=== PATIENT | female | born 1945 | race Caucasian/White ===

== ENCOUNTER 2019-05-18 09:20 | Outpatient (CLI) | payer MEDICARE, SELFPAY ==
[2019-05-18 10:07] LABS: Alanine Aminotransferase 25 U/L (4-35); Albumin Level 4.1 g/dL (3.5-5.1); Alkaline Phosphatase 81 U/L (38-126); Aspartate Amino Transferase 32 U/L (14-36); Bilirubin,Total 0.4 mg/dL (0.2-1.3); Blood Urea Nitrogen 11 mg/dL (7-17); Calcium 9.3 mg/dL (8.4-10.2); Carbon Dioxide 23 mmol/L (22-30); Chloride 103 mmol/L (98-107); Cholesterol 144 mg/dL (0-200); Estimated Glomerular Filt Rate > 60; Glucose 86 mg/dL (65-105); HDL Direct 47 mg/dL; Potassium 4.4 mmol/L (3.4-5.0); Sodium 139 mmol/L (137-145); Triglycerides 135 mg/dL (<150)
[2019-05-18 10:18] LABS: LDL Cholesterol Direct 70 mg/dL
[2019-05-18 10:21] LABS: Hemoglobin A1C 6.1 % (<5.7)
[2019-05-18 10:49] LABS: Vitamin D 25 Hydroxy 18.7 ng/mL
[2019-05-18 10:57] LABS: Vitamin B12 > 1000.0 pg/mL (239-931)
== END 2019-05-18 09:21 | disposition home or self-care (01) ==
LOC: ANHLAB 09:23
PROVIDERS: PCP Family Medicine; Visit Provider Nurse Practitioner
DX: E78.5 Hyperlipidemia, unspecified (principal); R73.9 Hyperglycemia, unspecified; E55.9 Vitamin D deficiency, unspecified; E53.8 Deficiency of other specified B group vitamins
CPT/HCPCS: 36415; 80053; 80061; 82306; 82607; 83036

== ENCOUNTER 2019-09-26 07:37 | Outpatient (CLI) | payer MEDICARE, SELFPAY ==
--- NOTE | ~2019-09-26 | CT_ITS ---
EXAMINATION: CT abdomen pelvis w con EXAM DATE: 09/26/2019 08:32 INDICATION: Pancreatic head cancer. TECHNIQUE: Spiral CT of the abdomen and pelvis was performed following intravenous injection of 100 m L Omnipaque 350. Axial, coronal and sagittal images were reviewed. The dose-length product (DLP) fo r this examination was 285.00 mGy-cm. The exposure was tailored according to patient size (auto mA e xposure control), and iterative reconstruction (ASIR) was used as additional dose reduction technique . Comparison is made to prior examination from 04/05/2019. FINDINGS: There is anechoic left liver lobe lesion, cyst measuring 1.6 cm unchanged. Surgical changes at the pancreatic head, Whipple procedure are stable compared to prior study, no evidence of local r ecurrence. The spleen and right adrenal gland are unremarkable. Mild nodularity to the left adrenal g land unchanged. Gallbladder is unremarkable. No biliary obstruction. Portal and splenic veins are p atent. Kidneys enhance symmetrically. There is no hydronephrosis. The uterus is anteverted and mo rphologically normal. The bladder is unremarkable. There is no retroperitoneal or pelvic lymphaden opathy. There is mild to moderate scattered arteriosclerotic disease. There is small supraumbilical midline fat-containing hernias. The appendix is not positively visualized. There is no pericecal inflammatory change to suggest appe ndicitis. The stomach and small bowel are unremarkable. There is expected amount of colonic stool. Mild No free intraperitoneal gas. The heart is normal in size. There are no pericardial or pleura l effusions. The lung bases are unremarkable. There are no osteoblastic or osteolytic lesions ident ified. IMPRESSION: Stable exam. No evidence of metastatic disease. Reviewed, dictated and finalized at location B.
[2019-09-26 08:17] LABS: Estimated Glomerular Filt Rate > 60
== END 2019-09-26 07:38 | disposition home or self-care (01) ==
PROVIDERS: PCP Family Medicine; Visit Provider Internal Medicine Medical Oncology
DX: C25.0 Malignant neoplasm of head of pancreas (principal)
CPT/HCPCS: 36415; 74177; Q9967

== ENCOUNTER → 2020-05-19 12:20 | Outpatient (CLI) | payer MEDICARE, SELFPAY ==
--- NOTE | ~2020-05-19 | DEXA_ITS ---
Bone Density Report Name: Dalia Mclean Age: 74 Sex: Female Ethnicity: White Date of : 1945 Indication: postmenopausal; screening for osteoporosis; height loss; Referring Provider: TRDUY QUIÑONES Study: Bone densitometry was performed. Exam Date: May 19, 2020 Accession number: [id number] Bone Density: Region BMD T-score Z-score Classification AP Spine (L1-L4) 0.948 -0.9 1.4 Normal Femoral Neck (Left) 0.634 -1.9 0.1 Osteopenia Total Hip (Left) 0.796 -1.2 0.5 Osteopenia Femoral Neck (Right) 0.630 -2.0 0.0 Osteopenia Total Hip (Right) 0.750 -1.6 0.1 Osteopenia Total Hip Mean 0.773 -1.4 0.3 Osteopenia World Health Organization criteria for BMD impression classify patients as: Normal (T-score at or above -1.0), Osteopenia (T-score between -1.0 and -2.5), or Osteoporosis (T-score at or below -2.5). 10-year Fracture Risk: FRAX not reported because: Treated for osteoporosis Clinical Information Provided by Patient: Is being treated for osteoporosis Has used the following medications: Evista (i.e. raloxifene), Vitamin D, Calcium Patient maximum height was 62 Menopause Age: 49 No regular weight bearing exercise Drinks caffeinated beverages Onset of menses at age 12 Number of children 2 Impression: The patient has low bone mass, based on the Right Femoral Neck T-score. Discussion: It is important to ask patients whether they are taking their medications and to encourage continued and appropriate compliance with their osteoporosis therapies to reduce fracture risk. It is also important to review their risk factors and encourage appropriate calcium and vitamin D intakes, exercise, fall prevention and other lifestyle measures. Follow-Up: Consider a repeat BMD and Vertebral Fracture Assessment (VFA) exam in 2 years or sooner if medically necessary, to reassess this patient's status. Reported by: AYAD on 05/19/2020 12:49:00 PM. Reviewed, dictated and finalized at location AQuique JENKINS
== END ==
PROVIDERS: PCP Internal Medicine; Visit Provider Obstetrics & Gynecology Gynecology
DX: Z78.0 Asymptomatic menopausal state (principal); M85.88 Other specified disorders of bone density and structure, other site; M85.852 Other specified disorders of bone density and structure, left thigh; M85.851 Other specified disorders of bone density and structure, right thigh
CPT/HCPCS: 77080

== ENCOUNTER 2020-05-19 13:03 | Outpatient (CLI) | payer MEDICARE, SELFPAY ==
[2020-05-19 14:49] LABS: Vitamin D 25 Hydroxy 19.1 ng/mL
== END 2020-05-19 13:04 | disposition home or self-care (01) ==
PROVIDERS: PCP Internal Medicine; Visit Provider Obstetrics & Gynecology Gynecology
DX: E55.9 Vitamin D deficiency, unspecified (principal)
CPT/HCPCS: 36415; 82306

== ENCOUNTER 2020-05-22 08:16 | Outpatient (CLI) | payer MEDICARE, SELFPAY ==
--- NOTE | ~2020-05-22 | CT_ITS ---
EXAMINATION: CT abdomen pelvis w con DATE: 05/22/2020 09:13 INDICATION: Restaging of malignant neoplasm of pancreatic head TECHNIQUE: Computed tomography (CT) of the abdomen and pelvis was performed with 100 cc Omnipaque 350 intravenous contrast. Automated exposure control and iterative reconstruction technique were employe d. Exam dose: 318.87 mGy-cm total exam DLP. COMPARISON: 09/26/2019 CT abdomen pelvis FINDINGS: Right fat-containing foramen of Bochdalek hernia with adjacent right basilar lower lobe ate lectasis. The lung bases are otherwise clear. Normal heart size. No pericardial or pleural effusion. Stable approximately 1.6 cm hepatic cyst. Diffuse hepatic steatosis. Status post cholecystectomy. Status post pancreatic head resection (Whipple procedure) for history of pancreatic carcinoma. Normal splenic size. No recurrent or new pancreatic mass lesion is evident. There is pancreatic atrop hy. Unremarkable adrenal glands. Very small right renal cyst. Stable focal scarring at the upper pole of the left kidney laterally. Th e kidneys are otherwise unremarkable. No urinary tract calculus or hydroureteronephrosis. The urinary bladder is unremarkable. There is atherosclerotic calcification of the abdominal aorta and proximal renal arteries. No abdomin al aortic aneurysm. No intraperitoneal or retroperitoneal or pelvic mass lesion or adenopathy or asci alfa is evident. Diverticulosis of the left colon; no CT evidence of diverticulitis. There are some fluid levels in th e right colon. No bowel obstruction, bowel wall thickening, pneumatosis or intraperitoneal free air i s evident. At least 2 ventral fat-containing abdominal wall hernias are noted, the largest measuring up to appro ximately 3.2 cm maximal transverse dimension and 10 mm maximal depth. Very small fat-containing umbilical hernia. No suspicious osteolytic or osteoblastic lesions are noted. IMPRESSION: Status post Whipple procedure for pancreatic carcinoma; no recurrent neoplasm is evident . Stable 1.6 cm hepatic cyst Hepatic steatosis Very small right renal cyst Diverticulosis of the colon Reviewed, dictated and finalized at Location A. Reviewed, dictated and finalized at location B. NEL INSTALLER IMPRESSION: Status post Whipple procedure for pancreatic carcinoma; no recurre nt neoplasm is evident. Stable 1.6 cm hepatic cyst Hepatic steatosis Very small right renal cyst Diverticulosis of the colon
[2020-05-22 09:09] LABS: Estimated Glomerular Filt Rate > 60
== END 2020-05-22 08:17 | disposition home or self-care (01) ==
PROVIDERS: PCP Internal Medicine; Visit Provider Internal Medicine Medical Oncology
DX: C25.0 Malignant neoplasm of head of pancreas (principal); N28.1 Cyst of kidney, acquired; K76.9 Liver disease, unspecified
CPT/HCPCS: 74177; Q9967

== ENCOUNTER 2020-06-17 09:40 | Outpatient (CLI) | payer MEDICARE, SELFPAY ==
[2020-06-17 10:17] LABS: Alanine Aminotransferase 25 U/L (4-35); Albumin Level 3.9 g/dL (3.5-5.1); Alkaline Phosphatase 69 U/L (38-126); Anion Gap 4 mmol/L (8-16); Aspartate Amino Transferase 37 U/L (14-36); Bilirubin,Total 0.4 mg/dL (0.2-1.3); Blood Urea Nitrogen 13 mg/dL (7-17); Calcium 8.9 mg/dL (8.4-10.2); Carbon Dioxide 26 mmol/L (22-30); Chloride 108 mmol/L (98-107); Cholesterol 166 mg/dL (0-200); Estimated Glomerular Filt Rate > 60; Glucose 96 mg/dL (65-105); HDL Direct 52 mg/dL; Potassium 4.2 mmol/L (3.4-5.0); Sodium 138 mmol/L (137-145); Triglycerides 118 mg/dL (<150)
[2020-06-17 10:24] LABS: Hemoglobin A1C 5.6 % (<5.7)
[2020-06-17 10:27] LABS: LDL Cholesterol Direct 89 mg/dL
== END 2020-06-17 09:41 | disposition home or self-care (01) ==
PROVIDERS: PCP Internal Medicine; Visit Provider Internal Medicine
DX: R73.03 Prediabetes (principal); I10 Essential (primary) hypertension; E78.5 Hyperlipidemia, unspecified; E04.2 Nontoxic multinodular goiter
CPT/HCPCS: 36415; 80053; 80061; 83036; 84443

== ENCOUNTER 2020-06-30 13:04 | Emergency (ER) | payer MEDICARE, SELFPAY ==
--- NOTE | 2020-06-30 13:06 | ED.GENADULT ---
HPI - General Adult General Chief complaint: Upper Respiratory Infection Stated complaint: cough/fever/fatigue/light headed Time Seen by Provider: 06/30/20 13:06 Source: patient Mode of arrival: ambulatory Limitations: no limitations History of Present Illness HPI narrative: 74-year-old female patient presents to the [facility] with complaints of cold symptoms for the past 5 days. Patient states she has had fevers as high as 102 but has not ran a fever for the last 2 days. Patient states she has had a little bit of a cough but denies any chest pain or shortness of breath. Patient states she has had a runny nose, fatigue, congestion. Patient states she did get her first Covid vaccine shot about 3 weeks ago. Patient denies being around anybody with Covid that she is aware of. Related Data Home Medications Medication Instructions Recorded Confirmed raloxifene mg 06/30/20 Allergies Allergy/AdvReac Type Severity Reaction Status Date / Time pegfilgrastim Allergy Mild WELTS Verified 06/23/20 09:17 vancomycin Allergy Mild Hives Verified 06/23/20 09:17 Review of Systems Review of Systems: Narrative: CONSTITUTIONAL: Positive fever, denies chills, or sweats. Positive fatigue EYES: Denies visual changes, redness, or discharge. ENT: Positive rhinorrhea, congestion, denies sore throat, or otalgia. CARDIOVASCULAR: Denies chest pain, palpitations, or edema. RESPIRATORY: Denies cough or dyspnea. GASTROINTESTINAL: Denies abdominal pain, nausea, vomiting, or diarrhea. GENITOURINARY: Denies dysuria or hematuria. SKIN: Denies rash or itching. MUSCULOSKELETAL: Denies back pain, joint pain, or myalgia. NEUROLOGIC: Denies headache, numbness, or weakness. PSYCHIATRIC: Denies anxiety or depression. [facility] Past Medical History Medical History Arthritis Combined hyperlipidemia Cyst of eye Essential (primary) hypertension History of breast cancer History of pancreatic cancer Multinodular goiter Raynaud's phenomenon without gangrene Vitamin D deficiency Surgical History Surgical History H/O cataract removal with insertion of prosthetic lens 2012 H/O section 1971 & 1975 History of dilatation and curettage 1974, 1977, 1979 Hx of blepharoplasty 2015 Hx of cholecystectomy 1998 Hx of hernia repair 2017 Hx of rotator cuff surgery 2003 Hx of tonsillectomy 1964 S/P thyroid biopsy 2017 [place] teeth removed 1972 Family History Family History Father Family history of lung cancer Mother Family history of malignant neoplasm of skin Sibling Family history of malignant neoplasm of skin Carcinoma of colon Family history of lymphoma Grandparent Family history of malignant neoplasm of breast Other Acute myocardial infarction Family history of malignant neoplasm of male breast Hypertension Social History Social History Smoking status: Former smoker Smoking end date: 04/03/1967 Alcohol intake: never Comments At the time of my signature I agree with nursing past medical history, surgical, social, and family history. There is no relevant family history pertinent to the presenting complaint. Exam Narrative: Exam Narrative: GENERAL: Well-appearing, well-nourished, and in no acute distress. HEAD: Normocephalic, atraumatic. EYES: PERRLA and EOMI. ENT: Nares clear, no rhinorrhea or epistaxis. Mucous membranes moist. Posterior pharynx with no erythema, tonsillar French, exudates or lesions present. Bilateral TMs are clear with no erythema or foreign bodies to the canal. NECK: Supple. No lymphadenopathy CHEST: Clear to auscultation. No respiratory distress. Patient able talk in clear complete sentences. HEART: Regular rate and rhythm. No murmur heard. Normal peripheral pulses. ABDOMEN:
[2020-06-30 13:13] VITALS: BP 165/70; PULSE 87; RESP 16; TEMP 37.2; O2SAT 99
== END 2020-06-30 13:31 | disposition home or self-care (01) ==
PROVIDERS: Emergency Provider Nurse Practitioner Family; PCP Internal Medicine
DX: U07.1 COVID-19 (principal); Z87.891 Personal history of nicotine dependence; M19.90 Unspecified osteoarthritis, unspecified site; I10 Essential (primary) hypertension; Z85.3 Personal history of malignant neoplasm of breast; Z85.07 Personal history of malignant neoplasm of pancreas; I73.00 Raynaud's syndrome without gangrene
CPT/HCPCS: 87426; 99213; C9803; G0463

== ENCOUNTER 2020-07-09 14:59 | Outpatient (CLI) | payer MEDICARE, SELFPAY ==
--- NOTE | ~2020-07-09 | US_ITS ---
EXAMINATION: US pelvic complete w TV DATE: 07/09/2020 16:04 INDICATION: Pelvic and perineal pain TECHNIQUE: Multiple transabdominal and endovaginal sonographic images of the pelvis were obtained. COMPARISON: CT, 05/22/2020 FINDINGS: The uterus measures 4.0 x 2.2 x 2.3 cm. There is a 1.3 cm cystic area in the posterior uter ine body to the left of midline. The endometrial complex measures 4 mm. The ovaries are not visualize d however no adnexal abnormality is seen. There is no free fluid in the pelvis. IMPRESSION: 1. No sonographic correlate for the patient's symptoms. Cystic area of the posterior uterine body of unclear etiology. Reviewed, dictated and finalized at location A. IMPRESSION: 1. No sonographic correlate for the patient's symptoms. Cystic area of the post erior uterine body of unclear etiology.
--- NOTE | ~2020-07-09 | US_ITS ---
EXAMINATION: US thyroid DATE: 07/09/2020 16:04 INDICATION: Nontoxic multinodular goiter. TECHNIQUE: Multiple ultrasound images of the thyroid were obtained. COMPARISON: Ultrasound 12/26/2016, 01/19/2016 FINDINGS: The right thyroid lobe measures 4.0 x 1.6 x 1.2 cm. The left thyroid lobe measures 5.0 x 2.3 x 2.6 c m. In the right thyroid lobe, there is a 1.5 cm solid, hypoechoic, [id number] nodule with ill-d efined margin without echogenic foci (TI-RADS TR4). In the left thyroid lobe, there is a 2.7 cm solid , hypoechoic, gdxmr-dtdf-kpgy nodule with ill-defined margin without echogenic foci (TR4). IMPRESSION: 1. Thyroid nodules, stable from 01/19/2016, likely benign. Reviewed, dictated and finalized at location A.
== END 2020-07-09 15:00 | disposition home or self-care (01) ==
LOC: ANHIMG 15:07
PROVIDERS: PCP Internal Medicine; Visit Provider Nurse Practitioner
DX: R10.2 Pelvic and perineal pain (principal); E04.2 Nontoxic multinodular goiter
CPT/HCPCS: 76536; 76830; 76856

== ENCOUNTER 2020-10-13 07:28 | Outpatient (CLI) | payer MEDICARE, SELFPAY ==
--- NOTE | ~2020-10-13 | CT_ITS ---
EXAMINATION: CT pelvis wo/w con DATE: 10/13/2020 08:07 INDICATION: Pelvic pain. Uterine cyst. TECHNIQUE: Computed tomography (CT) of the pelvis was performed without and with 100 mL Omnipaque 350 intravenous contrast. Automated exposure control and iterative reconstruction technique were employe d. The dose-length product was 377.91 mGy-cm. COMPARISON: Pelvis ultrasound 07/09/2020, CT 05/22/2020, 09/26/19 FINDINGS: There is diverticulosis of the colon without evidence of diverticulitis. There are no dilat ed loops of bowel. There are no pathologically enlarged lymph nodes. There is no free intraperitoneal fluid. There is a 12 mm cyst in the left uterine fundus centered at the endometrial complex. No tammy d component. There is mild lumbar spondylosis. IMPRESSION: 1. 12 mm cyst in the left uterine fundus centered at the endometrial complex, stable from 09/26/2019, likely benign. Reviewed, dictated and finalized at location A. IMPRESSION: 1. 12 mm cyst in the left uterine fundus centered at the endometrial complex, s table from 09/26/2019, likely benign.
[2020-10-13 08:02] LABS: Estimated Glomerular Filt Rate > 60
== END 2020-10-13 07:29 | disposition home or self-care (01) ==
LOC: ANHIMG 07:29
PROVIDERS: PCP Internal Medicine; Visit Provider Obstetrics & Gynecology Gynecology
DX: R93.5 Abnormal findings on diagnostic imaging of other abdominal regions, including retroperitoneum (principal)
CPT/HCPCS: 72194; Q9967

== ENCOUNTER 2020-11-30 01:49 | Day surgery (SDC) | payer MEDICARE, SELFPAY ==
[2020-11-23 16:07] VITALS: BMI 23.6
--- NOTE | 2020-11-30 07:13 | WPDHPUPDATE1 ---
History and Physical Update Update Date/Time: 11/30/20 07:13 History and Physical has been reviewed, including an updated exam of the patient. There are NO changes in the patient's condition. Risks, benefits, and alternatives have been discussed and questions answered. Patient agrees to proceed with procedure.
--- NOTE | 2020-11-30 07:13 | PM.HPGS ---
History of Present Illness History of Present Illness Consent: Risks, benefits, and alternatives have been discussed and questions answered. Patient agrees to proceed with procedure. Chief complaint: abn pelvic ultrasound Narrative: Dalia Mclean is a 75 year old female with pelvic ultrasound and CT showing a 12mm cyst in the endometrial cavity. The patient has had no vaginal bleeding and only complains of low abdominal mild pressure and pain. It was recommended to further evaluate with hysteroscopy D& C. Risks of infection, bleeding, and perforation were reviewed. Possible pathology was discussed. Patient voices understanding and agrees to proceed. Review of Systems Gastrointestinal: Gastrointestinal: Reports abdominal pain (Low pelvic) and Reports diarrhea Psychiatric: Psychiatric: Reports anxiety PMFSH Past Medical History Medical History (Updated 11/30/20 @ 07:20 by Arianne Musa MD) Arthritis Ashkenazi Orthodoxy ancestry Combined hyperlipidemia Cyst of eye Essential (primary) hypertension History of breast cancer History of pancreatic cancer Multinodular goiter Raynaud's phenomenon without gangrene Vitamin D deficiency Surgical History Surgical History H/O cataract removal with insertion of prosthetic lens 2012 H/O section 1971 & 1975 History of dilatation and curettage 1973, 1976, 1978 Hx of blepharoplasty 2015 Hx of cholecystectomy 1997 Hx of hernia repair 2017 Hx of rotator cuff surgery 2003 Hx of tonsillectomy 1964 S/P thyroid biopsy 2017 [place] teeth removed 1972 Family History Family History Father Family history of lung cancer Mother Family history of malignant neoplasm of skin Sibling Family history of malignant neoplasm of skin Carcinoma of colon Family history of lymphoma Grandparent Family history of malignant neoplasm of breast Other Acute myocardial infarction Family history of malignant neoplasm of male breast Hypertension Social History Social History (Updated 11/09/20 @ 07:49 by Lorrie Nugent CNA) Smoking status: Never smoker Second hand tobacco smoke exposure: Yes Alcohol intake: never Substance use: never Living arrangements: with family Spiritual care concerns: No Meds Home Medications and Allergies Home Medications Medication Instructions Recorded Confirmed Type L.acidoph, paracasei,B. lactis 10 10 cell PO DAILY 11/09/20 11/23/20 History billion cell capsule acyclovir 400 mg tablet 400 mg PO DAILY PRN 11/09/20 11/23/20 History calcium carbonate 400 mg calcium 400 mg PO DAILY 11/09/20 11/23/20 History (1,000 mg) chewable tablet cholecalciferol (vitamin D3) 250 20,000 unit PO DAILY cap 11/09/20 11/23/20 History mcg (10,000 unit) capsule diphenhydramine HCl 25 mg tablet 25 mg PO QHS 11/09/20 11/23/20 History wcnycq-aymlolof-butggyf 1 cap PO BID PRN 11/09/20 11/23/20 History 24,000-76,000-120,000 unit capsule,delayed rel melatonin 5 mg tablet 5 mg PO QHS 11/09/20 11/23/20 History multivitamin 1 tablet PO DAILY 11/09/20 11/23/20 History raloxifene 60 mg tablet 60 mg PO DAILY tablet 11/09/20 11/23/20 History trazodone 50 mg tablet 25 mg PO DAILY PRN tablet 11/09/20 11/23/20 History aspirin [Adult Low Dose Aspirin] 81 mg PO DAILY 11/23/20 11/23/20 History Allergies Allergy/AdvReac Type Severity Reaction Status Date / Time pegfilgrastim Allergy Mild WELTS Verified 11/23/20 15:24 vancomycin Allergy Mild Hives Verified 11/23/20 15:24 Exam Const: General: comfortable and no acute distress : External Female Exam: normal external appearance and externally tender Speculum Exam - Vagina: normal appearance of the vagina Speculum Exam - Cervix: normal appearance of the cervix Bimanual exam- vagina & uterus: normal bimanual exam Bimanual Exam- Adnexa, other: normal adnex
[2020-11-30] MEDS: ACETAMINOPHEN 500 MG TABLET 1000 MG PO (07:16)
[2020-11-30 07:31] VITALS: BP 157/69; PULSE 82; RESP 16; TEMP 36.6; O2SAT 99
--- NOTE | 2020-11-30 07:47 | WPDANESEPPF ---
Anes - Initial Pre Proc Eval Procedure: Operation Date: 11/30/20 08:45 Proposed Procedures p Hysteroscopy, Dilation and Curettage - Arianne Musa MD Date/Time: 11/30/20 07:47 Surgeon: Arianne Musa MD Pre Op Diagnosis: abn pelvic ultrasound Patient Data Age: 75 Gender: F Height: 1.55 m Weight: 57 kg Last Vital Signs Temp 36.6 C 11/30/20 07:31 Pulse 82 11/30/20 07:31 Resp 16 11/30/20 07:31 BP 157/69 H 11/30/20 07:31 Pulse Ox 99 11/30/20 07:31 Allergies Allergy/AdvReac Type Severity Reaction Status Date / Time pegfilgrastim Allergy Mild WELTS Verified 11/30/20 07:29 vancomycin Allergy Mild Hives Verified 11/30/20 07:29 Home Medications Medication Instructions Recorded Confirmed Type L.acidoph, paracasei,B. lactis 10 10 cell PO DAILY 11/09/20 11/23/20 History billion cell capsule acyclovir 400 mg tablet 400 mg PO DAILY PRN 11/09/20 11/23/20 History calcium carbonate 400 mg calcium 400 mg PO DAILY 11/09/20 11/23/20 History (1,000 mg) chewable tablet cholecalciferol (vitamin D3) 250 20,000 unit PO DAILY cap 11/09/20 11/23/20 History mcg (10,000 unit) capsule diphenhydramine HCl 25 mg tablet 25 mg PO QHS 11/09/20 11/23/20 History vbdnaa-edccvvft-mgmfctq 1 cap PO BID PRN 11/09/20 11/23/20 History 24,000-76,000-120,000 unit capsule,delayed rel melatonin 5 mg tablet 5 mg PO QHS 11/09/20 11/23/20 History multivitamin 1 tablet PO DAILY 11/09/20 11/23/20 History raloxifene 60 mg tablet 60 mg PO DAILY tablet 11/09/20 11/23/20 History trazodone 50 mg tablet 25 mg PO DAILY PRN tablet 11/09/20 11/23/20 History aspirin [Adult Low Dose Aspirin] 81 mg PO DAILY 11/23/20 11/30/20 History Patient hx anesthesia problems: none Family hx anesthesia problems: other (daughter temp blindness) PMFSH Past Medical History Medical History Arthritis Ashkenazi Zoroastrian ancestry Combined hyperlipidemia Cyst of eye Essential (primary) hypertension History of breast cancer History of pancreatic cancer Multinodular goiter Raynaud's phenomenon without gangrene Vitamin D deficiency Surgical History Surgical History H/O cataract removal with insertion of prosthetic lens 2012 H/O section 1971 & 1975 History of dilatation and curettage 1973, 1976, 1978 Hx of blepharoplasty 2014 Hx of cholecystectomy 1997 Hx of hernia repair 2016 Hx of rotator cuff surgery 2002 Hx of tonsillectomy 1963 S/P thyroid biopsy 2017 [place] teeth removed 1971 Family History Family History Father Family history of lung cancer Mother Family history of malignant neoplasm of skin Sibling Family history of malignant neoplasm of skin Carcinoma of colon Family history of lymphoma Grandparent Family history of malignant neoplasm of breast Other Acute myocardial infarction Family history of malignant neoplasm of male breast Hypertension Social History Social History Smoking status: Never smoker Second hand tobacco smoke exposure: Yes Alcohol intake: never Substance use: never Living arrangements: with family Spiritual care concerns: No Anes - Eval Final PreProcedure Day of Procedure 11/30/20 07:47 Patient weight: normal Heart: regular rate and rhythm Lungs: clear to auscultation Airway: Mallampati scale class 1 Neurological: alert and oriented Last oral intake: >/= 8 hours ASA classification: III Emergent: no Anesthetic plan: proceed Anesthesia type and monitoring: general GIVS and standard monitoring Informed Consent: The patient's anesthetic plan and its attendant risks and benefits were discussed with the patient/family/POA. Questions were solicited and answers provided to the satisfaction of the patient/family/POA.
--- NOTE | 2020-11-30 08:21 | P.OP_ITS ---
Procedure Note - Detailed Date of Procedure 11/30/20 Pre-op Diagnosis abn pelvic ultrasound Post-op Diagnosis same Procedure Performed Hysteroscopy Surgeon Arianne Musa MD Anesthesia MAC and local Findings Cervix is stenotic; uterus is very scarred with no lesions visible; perforation left upper fundus Description of Procedure The patient was taken to the operating room and placed in the dorsal lithotomy position using Anival stirrups. She was prepped and draped in usual sterile fashion. [place] speculum was placed in the vagina and the cervix grasped on the anterior lip with a tenaculum. The cervix is injected with 1% lidocaine in each quadrant. The uterus is sounded and the os is slightly stenotic and during entry perforation is noted. The cervix was then serially dilated with Hegar size. Diagnostic hysteroscope was placed and the uterus distends well with good visualization of the entire cavity. No lesions are noted. There was a small perforation in the left upper fundus. No bleeding is coming from the perforation site. No specimen is taken due to this perforation. All instruments are removed. The patient is awakened from anesthesia and taken to recovery in stable condition. Sponge, needle, and instrument counts are correct per the OR staff. Estimated Blood Loss 5 Drains No Packing No Pathology none sent Complications Other complications (Uterine perforation) Condition stable Disposition PACU
[2020-11-30 08:22] VITALS: BP 131/58; PULSE 81; RESP 15; O2SAT 97
[2020-11-30] MEDS: LACTATED RINGERS 1,000 ML 30 ML IV CONT (08:22)
[2020-11-30 08:50] VITALS: BP 113/63; PULSE 84; RESP 20
[2020-11-30 09:15] VITALS: BP 167/71; PULSE 74; RESP 20
== END 2020-11-30 09:20 | disposition home or self-care (01) ==
PROVIDERS: PCP Internal Medicine; Visit Provider Obstetrics & Gynecology Gynecology
PROC: 0U5B8ZZ Destruction of Endometrium, Via Natural or Artificial Opening Endoscopic (ICD-10-PCS; CPT 58563; principal; 2020-11-30 08:45)
DX: N88.2 Stricture and stenosis of cervix uteri (principal); N99.71 Accidental puncture and laceration of a genitourinary system organ or structure during a genitourinary system procedure; Y65.8 Other specified misadventures during surgical and medical care; M19.90 Unspecified osteoarthritis, unspecified site; E78.5 Hyperlipidemia, unspecified; Z85.3 Personal history of malignant neoplasm of breast; Z85.07 Personal history of malignant neoplasm of pancreas; E55.9 Vitamin D deficiency, unspecified; E04.2 Nontoxic multinodular goiter; R11.2 Nausea with vomiting, unspecified
CPT/HCPCS: 58555; A9270; J2704; J3010; J7030; J7120

== ENCOUNTER 2020-12-30 08:22 | Outpatient (CLI) | payer MEDICARE, SELFPAY ==
[2020-12-30 09:02] LABS: Alanine Aminotransferase 21 U/L (4-35); Albumin Level 4.3 g/dL (3.5-5.1); Alkaline Phosphatase 75 U/L (38-126); Anion Gap 10 mmol/L (8-16); Aspartate Amino Transferase 35 U/L (14-36); Bilirubin,Total 0.4 mg/dL (0.2-1.3); Blood Urea Nitrogen 13 mg/dL (7-17); Calcium 9.1 mg/dL (8.4-10.2); Carbon Dioxide 22 mmol/L (22-30); Chloride 107 mmol/L (98-107); Cholesterol 151 mg/dL (0-200); Estimated Glomerular Filt Rate > 60; Glucose 100 mg/dL (65-110); HDL Direct 60 mg/dL; Potassium 4.4 mmol/L (3.4-5.0); Sodium 139 mmol/L (137-145); Triglycerides 179 mg/dL (<150)
[2020-12-30 09:15] LABS: LDL Cholesterol Direct 65 mg/dL
[2020-12-30 09:55] LABS: Vitamin D 25 Hydroxy 49.9 ng/mL
== END 2020-12-30 08:23 | disposition home or self-care (01) ==
PROVIDERS: PCP Internal Medicine; Visit Provider Nurse Practitioner
DX: E78.2 Mixed hyperlipidemia (principal); E53.8 Deficiency of other specified B group vitamins; E55.9 Vitamin D deficiency, unspecified; G47.00 Insomnia, unspecified
CPT/HCPCS: 36415; 80053; 80061; 82306; 82607; 84443

== ENCOUNTER 2021-06-02 08:16 | Outpatient (CLI) | payer MEDICARE, SELFPAY ==
--- NOTE | ~2021-06-02 | CT_ITS ---
EXAMINATION: CT abdomen pelvis w con EXAM DATE: 06/02/2021 09:29 INDICATION: Pancreatic head cancer. TECHNIQUE: Spiral CT of the abdomen and pelvis was performed following intravenous injection of 100 m L Omnipaque 350. Axial, coronal and sagittal images of the abdomen and pelvis were reviewed. The do se-length product (DLP) for this examination was 288.50 mGy-cm. The exposure was tailored according to patient size (auto mA exposure control), and iterative reconstruction (ASIR) was used as additiona l dose reduction technique. Comparison is made to prior examination from 05/22/2020. FINDINGS: Status post Whipple procedure for pancreatic cancer, stable in appearance. Small supraumbil ical midline fat-containing hernia. There is a 1.7 cm left liver lobe cyst. Splenic granulomata. Mil d nodularity to left adrenal gland unchanged, could be hyperplasia. The liver, spleen, and pancreas a re otherwise unremarkable. Gallbladder is unremarkable. No biliary obstruction. Portal and splenic veins are patent. Kidneys enhance symmetrically. There is no hydronephrosis. The uterus is unrem arkable. The bladder is unremarkable. There is no retroperitoneal or pelvic lymphadenopathy. The re is mild scattered arteriosclerotic disease. There are no findings to suggest appendicitis. No small bowel obstruction. There is expected amount of colonic stool. No free intraperitoneal gas. The heart is normal in size. There are no perica rdial or pleural effusions. The lung bases are unremarkable. There are no osteoblastic or osteolyti c lesions identified. IMPRESSION: Stable surgical changes, no evidence of metastatic disease. Reviewed, dictated and finalized at location B. N ENERGY POLICY ANALYST
[2021-06-02 09:24] LABS: Estimated Glomerular Filt Rate > 60
== END 2021-06-02 08:17 | disposition home or self-care (01) ==
LOC: ANHIMG 08:27
PROVIDERS: PCP Internal Medicine; Visit Provider Internal Medicine Medical Oncology
DX: C25.0 Malignant neoplasm of head of pancreas (principal)
CPT/HCPCS: 74177; Q9967

== ENCOUNTER 2022-01-11 09:18 | Outpatient (CLI) | payer MEDICARE, SELFPAY ==
[2022-01-11 09:57] LABS: Alanine Aminotransferase 31 U/L (6-35); Albumin Level 4.4 g/dL (3.5-5.1); Alkaline Phosphatase 82 U/L (38-126); Anion Gap 9 mmol/L (8-16); Aspartate Amino Transferase 38 U/L (14-36); Bilirubin,Total 0.4 mg/dL (0.2-1.3); Blood Urea Nitrogen 11 mg/dL (7-17); Carbon Dioxide 24 mmol/L (22-30); Chloride 106 mmol/L (98-107); Cholesterol 151 mg/dL (0-200); Estimated Glomerular Filt Rate > 60; Glucose 99 mg/dL (65-110); HDL Direct 49 mg/dL; Potassium 3.9 mmol/L (3.4-5.0); Sodium 139 mmol/L (137-145); Triglycerides 184 mg/dL (<150)
[2022-01-11 10:09] LABS: LDL Cholesterol Direct 63 mg/dL
[2022-01-11 10:28] LABS: Vitamin D 25 Hydroxy 29.6 ng/mL
== END 2022-01-11 09:19 | disposition home or self-care (01) ==
PROVIDERS: PCP Internal Medicine; Visit Provider Internal Medicine
DX: E78.2 Mixed hyperlipidemia (principal); I10 Essential (primary) hypertension; E55.9 Vitamin D deficiency, unspecified; E53.8 Deficiency of other specified B group vitamins
CPT/HCPCS: 36415; 80053; 80061; 82306; 82607

== ENCOUNTER 2022-02-08 17:06 | Emergency (ER) | payer MEDICARE, SELFPAY ==
--- NOTE | ~2022-02-08 | XR_ITS ---
EXAMINATION: XR chest 2V Exam Date/Time: 02/08/2022 17:26 ADVERTISING WRITER HISTORY: cough w/sob Comparison: None available. RESULT: Lines, tubes, and devices: Left axillary clips. Lungs and pleura: Mild diffuse reticular opacities. Linear bibasilar and subsegmental right basilar opacities. Small left and trace right costophrenic angle blunting Cardiomediastinal silhouette: Stable. Other: No acute osseous or upper abdominal finding. IMPRESSION: Mild interstitial edema. Small left and trace right pleural effusions. Subsegmental right basilar opa city, presumed to be related to atelectasis. Reviewed, dictated and finalized at location K. RTISING WRITER IMPRESSION: Mild interstitial edema. Small left and trace right pleural effusions. Subsegme ntal right basilar opacity, presumed to be related to atelectasis.
[2022-02-08 17:26] VITALS: BP 195/91; PULSE 103; RESP 18; TEMP 36.9; O2SAT 98
--- NOTE | 2022-02-08 17:58 | ED.URI ---
HPI - URI/Sore Throat General Chief Complaint: Upper Respiratory Infection Stated Complaint: fever,cough Source: patient Mode of arrival: ambulatory Limitations: no limitations History of Present Illness HPI Narrative: This is a 76-year-old woman who comes in with complaints have been going on for 3 week. Patient states that she had lethargy sometimes dizziness that have subsided, head congestion, coughing, sometimes transfer chest, only when she lays shortness of breath 0 going to this problem, current she feels a sore throat, reason of the extensive past medical history of pancreatic cancer and breast cancer patient states she feels like she has pneumonia just like she previously has had in the past she has remained afebrile able to eat and drink without any difficulty states that she has some fogginess that time. Patient states that she is having swelling of her legs sometimes her face and hand is not inform her primary. If you have not been into see him the symptoms started after she had fallen 3 weeks. Related Data Home Medications Medication Instructions Recorded Confirmed acyclovir 400 mg tablet 400 mg PO DAILY PRN HERPES 11/09/20 02/08/22 cholecalciferol (vitamin D3) 250 20,000 unit PO DAILY 11/09/20 02/08/22 mcg (10,000 unit) capsule diphenhydramine HCl 25 mg tablet 25 mg PO QHS 11/09/20 02/08/22 (Benadryl Allergy) cjrtaz-feogtflf-lspqdcj 1 cap PO BID PRN Heartburn 11/09/20 02/08/22 24,000-76,000-120,000 unit capsule,delayed rel (Creon) melatonin 5 mg tablet 5 mg PO QHS 11/09/20 02/08/22 multivitamin 1 tablet PO DAILY 11/09/20 02/08/22 raloxifene 60 mg tablet 60 mg PO DAILY 11/09/20 02/08/22 trazodone 50 mg tablet 25 mg PO DAILY PRN insomnia 11/09/20 02/08/22 aspirin 81 mg tablet 81 mg PO DAILY 11/23/20 02/08/22 Allergies Allergy/AdvReac Type Severity Reaction Status Date / Time pegfilgrastim Allergy Mild WELTS Verified 02/08/22 17:29 vancomycin Allergy Mild Hives Verified 02/08/22 17:29 Review of Systems Review of Systems: Fogginess, shortness of breath, lethargy, coughing, congestion, oncoming sore throat All systems reviewed & are unremarkable except as noted in HPI and below PMFSH Past Medical History Medical History Arthritis Ashkenazi Catholic ancestry Combined hyperlipidemia Cyst of eye Essential (primary) hypertension History of breast cancer History of pancreatic cancer Multinodular goiter Raynaud's phenomenon without gangrene Vitamin D deficiency Surgical History Surgical History H/O cataract removal with insertion of prosthetic lens 2012 H/O section 1971 & 1975 History of dilatation and curettage 1973, 1976, 1978 Hx of blepharoplasty 2014 Hx of cholecystectomy 1997 Hx of hernia repair 2016 Hx of rotator cuff surgery 2002 Hx of tonsillectomy 1964 S/P thyroid biopsy 2017 [place] teeth removed 1972 Family History Family History Father Family history of lung cancer Mother Family history of malignant neoplasm of skin Sibling Family history of malignant neoplasm of skin Carcinoma of colon Family history of lymphoma Grandparent Family history of malignant neoplasm of breast Other Acute myocardial infarction Family history of malignant neoplasm of male breast Hypertension Social History Social History Smoking status: Former smoker Second hand tobacco smoke exposure: Yes Alcohol intake: never Substance use: never Substance use type: does not use Spiritual care concerns: No Comments At time as signature, I have reviewed and agree with nursing past medical, social, surgical and family history. Please see nursing chart for further information. There is no relevant family history pertinent to the presenting compla
== END 2022-02-08 18:23 | disposition home or self-care (01) ==
PROVIDERS: Emergency Provider Nurse Practitioner Family; PCP Internal Medicine
DX: J06.9 Acute upper respiratory infection, unspecified (principal); J02.9 Acute pharyngitis, unspecified; R06.00 Dyspnea, unspecified; R91.8 Other nonspecific abnormal finding of lung field; Z87.891 Personal history of nicotine dependence; M19.90 Unspecified osteoarthritis, unspecified site; I10 Essential (primary) hypertension; E78.2 Mixed hyperlipidemia; Z85.3 Personal history of malignant neoplasm of breast; Z85.07 Personal history of malignant neoplasm of pancreas; E04.2 Nontoxic multinodular goiter; I73.00 Raynaud's syndrome without gangrene; E55.9 Vitamin D deficiency, unspecified; Z98.49 Cataract extraction status, unspecified eye; Z96.1 Presence of intraocular lens; Z79.82 Long term (current) use of aspirin
CPT/HCPCS: 71046; 87804; 99213; G0463

== ENCOUNTER 2022-02-13 09:28 | Inpatient (IN) | payer MEDICARE, SELFPAY ==
[2022-02-13] VITALS (17 sets, daily range): BP systolic 100–168; BP diastolic 72–82; PULSE 30–99; RESP 14–28; TEMP 36.1–37; O2SAT 90–99; BMI 24.6
--- NOTE | ~2022-02-13 | XR_ITS ---
EXAMINATION: XR chest 1V portable INDICATION: Shortness of breath TECHNIQUE: Portable AP chest at 1002 hours COMPARISON: 02/08/2022 FINDINGS: There are small pleural effusions without significant change. Stable airspace opacities are present in the lung bases. No pneumothorax is identified. The cardiomediastinal silhouette is stable . There are surgical clips in the left breast and left axilla. A suture anchor is noted in the right humeral head. IMPRESSION: 1. Small pleural effusions with stable airspace opacities of the lung bases, atelectasis versus pneum onia. Reviewed, dictated and finalized at location A. IMPRESSION: 1. Small pleural effusions with stable airspace opacities of the lung bases, at electasis versus pneumonia.
--- NOTE | ~2022-02-13 | XR_ITS ---
EXAMINATION: XR chest 1V portable DATE: 02/14/2022 12:13 INDICATION: Pacer placement. TECHNIQUE: A single frontal view of the chest was obtained. COMPARISON: Chest single view 02/13/2022, CT abdomen and pelvis 06/02/2021 FINDINGS: There are airspace opacities at the lung bases. There is a small left pleural effusion. No pneumothorax. The heart size is normal. There is a left chest wall pacer with leads in the right atri um and right ventricle. There are surgical clips in left axilla and left breast. There is a suture an chor in right humeral head. IMPRESSION: 1. Stable small left pleural effusion. 2. Airspace opacities at the lung bases with improvement on the left, consistent with atelectasis juan david petra pneumonia. Reviewed, dictated and finalized at location A. PILER IMPRESSION: 1. Stable small left pleural effusion. 2. Airspace opacities at the lung bases with improvement on the left, consisten t with atelectasis versus pneumonia.
--- NOTE | ~2022-02-13 | XR_ITS ---
EXAMINATION: XR chest 2V DATE: 02/15/2022 11:10 INDICATION: Post pacer placement. TECHNIQUE: Frontal and lateral views of the chest were obtained. COMPARISON: Chest single view 02/14/2022 FINDINGS: There are small bilateral pleural effusions. There are airspace opacities at the lung bases . No pneumothorax. The heart size is normal. There is a left chest wall pacer with leads in the right atrium and right ventricle. There are surgical clips in left axilla and left breast. There is a sutu re anchor in right humeral head. IMPRESSION: 1. Small pleural effusions. 2. Airspace opacities at the lung bases, consistent with atelectasis or less likely pneumonia. Reviewed, dictated and finalized at location A. UNICATION SPECIALIST IMPRESSION: 1. Small pleural effusions. 2. Airspace opacities at the lung bases, consistent with atelectasis or less li poonam pneumonia.
--- NOTE | 2022-02-13 09:44 | ECG_ITS ---
Measurements Intervals [place] Rate: 62 P: 59 MT: 141 QRS: -39 QRSD: 136 T: 76 QT: 426 QTc: 435 Interpretive Statements SINUS RHYTHM WITH SECOND DEGREE AV BLOCK, TYPE II VENTRICULAR BIGEMINY LEFT BUNDLE BRANCH BLOCK ABNORMAL ECG NO PREVIOUS ECG AVAILABLE FOR COMPARISON Electronically Signed On 02-13-2022 10:14:17 ELECTRIC SHIPYARD OPERATOR by Stewart Kenny D.O.
--- NOTE | 2022-02-13 09:46 | ED.SOB ---
HPI - SOB/Dyspnea General Chief Complaint: Shortness of Breath/Dyspnea Stated Complaint: sob, cough Time Seen by Provider: 02/13/22 09:44 Source: patient, family and EMS Mode of arrival: EMS Limitations: no limitations History of Present Illness HPI Narrative: 76 years old white female came from home by ambulance because of shortness of breath for at least last 6 days. She denies any fever, chills, nausea, vomiting, chest pain or back pain. Patient on trazodone for insomnia otherwise no medicine. She does not smoke drinks occasionally does not use drugs. Patient is fully vaccinated for COVID-19 did not have the flu vaccine yet History of left breast cancer, status post lumpectomy, 18 years ago, was told that she was cured. History of pancreatic cancer, status post Whipple surgery 6-1/2-year ago, and was told that she was cured Related Data Home Medications Medication Instructions Recorded Confirmed raloxifene 60 mg tablet 60 mg PO DAILY 11/09/20 02/13/22 trazodone 50 mg tablet 25 mg PO HS PRN insomnia 11/09/20 02/13/22 rifwdu-dpolulcm-uqbxuya 1 cap PO TIDWM 02/13/22 02/13/22 24,000-76,000-120,000 unit capsule,delayed rel (Creon) Allergies Allergy/AdvReac Type Severity Reaction Status Date / Time pegfilgrastim Allergy Mild WELTS Verified 02/08/22 17:29 vancomycin Allergy Mild Hives Verified 02/08/22 17:29 Review of Systems Review of Systems: All systems reviewed & are unremarkable except as noted in HPI and below PMFSH Past Medical History Medical History Arthritis Ashkenazi Judaism ancestry Combined hyperlipidemia Cyst of eye Essential (primary) hypertension History of breast cancer History of pancreatic cancer Multinodular goiter Raynaud's phenomenon without gangrene Vitamin D deficiency Surgical History Surgical History H/O cataract removal with insertion of prosthetic lens 2012 H/O section 1971 & 1975 History of dilatation and curettage 1973, 1976, 1978 Hx of blepharoplasty 2015 Hx of cholecystectomy 1998 Hx of hernia repair 2017 Hx of rotator cuff surgery 2003 Hx of tonsillectomy 1964 S/P thyroid biopsy 2017 [place] teeth removed 1972 Family History Family History (Updated 02/13/22 @ 15:50 by Ирина Rocha, PADMA) Father Family history of lung cancer Mother Family history of malignant neoplasm of skin Sibling Family history of malignant neoplasm of skin Family history of lymphoma Carcinoma of colon Grandparent Family history of malignant neoplasm of breast Acute myocardial infarction Other Family history of malignant neoplasm of male breast Hypertension Social History Social History Smoking status: Never smoker Second hand tobacco smoke exposure: Yes Alcohol intake: never Substance use: never Substance use type: does not use Lack of Transportation: No Lack of Food: Never True Current Housing: I Have Housing Concerned About Future Housing: No Difficulty Paying Gas/Electric Bills: No Difficulty Paying for Meds: No Currently Unemployed: No Education: Decline to Answer Difficulty w/ Childcare or Family Care: No Spiritual care concerns: No Exam Narrative: General appearance: Well-developed, well-nourished Skin: Normal color Head: Normocephalic, nontraumatic Eyes: Clear conjunctiva ENT: Oropharynx normal, ears normal, nose normal Neck: Supple, nontender Chest and respiratory: Airway patent, no respiratory distress, no accessory muscle use Heart: irRegular heart rhythm Abdomen: Soft, nontender, no organomegaly, quiet bowel sounds Vascular: Normal peripheral pulses, normal capillary refill. Musculoskeletal: Normal range of motion, nontender back Neurologic: Alert and oriented ?3, CARBON COATING MACHINE OPERATOR is normal as tested, no gross motor deficit
[2022-02-13 10:18] LABS: Basophils Percent Auto 0.4 % (0.2-1.2); Eosinophils Percent Auto 0.3 % (0-4.4); Hematocrit 38.6 % (37.0-47.0); Hemoglobin 12.6 g/dL (12.0-15.0); Immature Granulocyte Absolute 0.03 K/mm3 (0.00-0.031); Immature Granulocyte Percent A 0.4 % (0-0.5); Lymphocytes Percent Auto 17.9 % (18.3-44.2); Mean Corpuscular HGB Conc 32.6 g/dl (32-36); Mean Corpuscular Hemoglobin 31.7 pg (26-34); Mean Corpuscular Volume 97.2 fl (80-100); Mean Platelet Volume 11.5 fl (7.4-10.4); Monocytes Absolute Auto 0.4 K/mm3 (0.1-0.6); Neutrophils Absolute Auto 5.5 K/mm3 (1.3-6.7); Platelet Count Result 354 k/mm3 (150-375); Red Blood Count 3.97 M/mm3 (4.2-5.4); Red Cell Distribution Width 14.5 % (11.5-14.5); White Blood Count 7.3 K/mm3 (4.5-10.0)
--- NOTE | 2022-02-13 10:36 | PM.CNCAR ---
Assessment and Plan Assessment and plan (1) Atrioventricular block, second degree: Code(s): I44.1 - Atrioventricular block, second degree Status: Acute Assessment and Plan: Second degree AV block, type II with 4:1 block. BP is stable. Transcutaneous pacer for HR<35 bpm. Monitor on telemetry. Discuss need for PPM and she is agreeable for it. Will let HCG know in AM. (2) Ventricular tachycardia (paroxysmal): Code(s): I47.29 - Other ventricular tachycardia Status: Acute Assessment and Plan: Nonsustained in ER. Monitor on telemetry. Check labs and Mag. If continue to have it then will start Amiodarone drip low dose 0.5 mg/min, but this may cause worsening of heart block requiring urgent temporary transvenous pacemaker. History of Present Illness History of Present Illness Consult date/time: 02/13/22 10:36 Reason For Visit: sob, cough Narrative: 76 yr old woman presents to ER by ambulance for sob x 6 days. She has no cardiac history. at bedside in ER. States she noted in last 4 weeks feeling weaker, more KELLY, SOB, dizziness. She used to be able to walk unlimited distance and now has more KELLY with short distances. She is unable to sleep for the past week feeling sob when lying back. Denies chest pain, edema, palpitations. Review of Systems Review of Systems: All systems reviewed & are unremarkable except as noted in HPI and below Constitutional: Constitutional: Reports as per HPI, Denies chills, Reports fatigue and Denies fever(s) Cardiovascular: Cardiovascular: Reports as per HPI, Denies chest pain, Denies leg edema and Reports lightheadedness Respiratory: Respiratory: Reports as per HPI, Reports dyspnea and Reports dyspnea on exertion Gastrointestinal: Gastrointestinal: Reports as per HPI and Denies abdominal pain Genitourinary: Genitourinary: Reports as per HPI and Denies dysuria Musculoskeletal: Musculoskeletal: Reports as per HPI Neurologic: Reports as per HPI, Reports dizziness and Denies syncope [facility] Past Medical History Medical History Arthritis Ashkenazi Mormonism ancestry Combined hyperlipidemia Cyst of eye Essential (primary) hypertension History of breast cancer History of pancreatic cancer Multinodular goiter Raynaud's phenomenon without gangrene Vitamin D deficiency Surgical History Surgical History H/O cataract removal with insertion of prosthetic lens 2012 H/O section 1971 & 1975 History of dilatation and curettage 1973, 1976, 1978 Hx of blepharoplasty 2014 Hx of cholecystectomy 1997 Hx of hernia repair 2017 Hx of rotator cuff surgery 2002 Hx of tonsillectomy 1964 S/P thyroid biopsy 2017 [place] teeth removed 1972 Family History Family History Father Family history of lung cancer Mother Family history of malignant neoplasm of skin Sibling Family history of malignant neoplasm of skin Carcinoma of colon Family history of lymphoma Grandparent Family history of malignant neoplasm of breast Other Acute myocardial infarction Family history of malignant neoplasm of male breast Hypertension Social History Social History Smoking status: Former smoker Second hand tobacco smoke exposure: Yes Alcohol intake: never Substance use: never Substance use type: does not use Spiritual care concerns: No Meds Home Medications and Allergies Home Medications Medication Instructions Recorded Confirmed Type acyclovir 400 mg tablet 400 mg PO DAILY PRN HERPES 11/09/20 02/08/22 History cholecalciferol (vitamin D3) 250 20,000 unit PO DAILY 11/09/20 02/08/22 History mcg (10,000 unit) capsule diphenhydramine HCl 25 mg tablet 25 mg PO QHS 11/09/20 02/08/22 History (Benadryl Allergy) lipase-protease-
[2022-02-13 10:53] LABS: Influenza A QL RT-PCR Negative (Negative); Influenza B QL RT-PCR Negative (Negative); RSV RNA, RT-PCR Negative (Negative); SARS-CoV-2 RNA PCR Negative
[2022-02-13 11:10] LABS: Alanine Aminotransferase 43 U/L (6-35); Alkaline Phosphatase 89 U/L (38-126); Anion Gap 14 mmol/L (8-16); Aspartate Amino Transferase 60 U/L (14-36); Bilirubin,Total 0.6 mg/dL (0.2-1.3); Blood Urea Nitrogen 10 mg/dL (7-17); Calcium 8.8 mg/dL (8.4-10.2); Carbon Dioxide 19 mmol/L (22-30); Chloride 108 mmol/L (98-107); Estimated Glomerular Filt Rate > 60; Glucose 129 mg/dL (65-110); Magnesium 1.9 mg/dL (1.6-2.3); Potassium 3.6 mmol/L (3.4-5.0); Sodium 141 mmol/L (137-145)
--- NOTE | 2022-02-13 11:10 | PC.NURSE ---
PT PLACED ON EXTERNAL PACER PADS. PT PLACED AT A RATE OF 40. PACER SET AT 30MA. PT TOLERATING WELL.
[2022-02-13 11:11] LABS: INR 1.1; Prothrombin Time 14.2 Seconds (11.1-14.7)
[2022-02-13 11:12] LABS: Partial Thromboplastin Time 26.2 SECONDS (22.3-36.8)
[2022-02-13 11:19] LABS: NT Pro B Type Natriuretic Pept 2420 pg/mL (5-100)
[2022-02-13 11:22] LABS: Troponin I < 0.012 ng/mL (0.000-0.034)
--- NOTE | 2022-02-13 11:50 | PC.NURSE ---
RN requested this tech to take a manual blood pressure since room cuff was not working. This tech got a reading of 162/78. PADMA Hay made aware.
--- NOTE | 2022-02-13 12:55 | WPDCNINT ---
Assessment and Plan Assessment and plan (1) Atrioventricular block, second degree: Code(s): I44.1 - Atrioventricular block, second degree Status: Acute Assessment and Plan: Patient has second-degree type 2 av block with 4-1 conduction. On arrival in the ER patient was placed on transcutaneous pacing. During my exam patient was being paced pretty frequently. Transcutaneous pacemaker is set at 30 mA and 40 rate Initial plan was to place permanent pacemaker tomorrow but I have spoken to and requested Dr. Mcneil with intervention cardiology to evaluate patient for transvenous pacemaker at this time. Her blood pressure is adequate although has to be manually checked. Check echo check TSH (2) Ventricular tachycardia (paroxysmal): Code(s): I47.29 - Other ventricular tachycardia Status: Acute Assessment and Plan: Patient has had runs of nonsustained V-tach. Amiodarone was initially ordered but was discontinued after cardiology evaluation due to concern of worsening of her block and bradycardia Replace low potassium and magnesium Monitor (3) Congestive heart failure: Code(s): I50.9 - Heart failure, unspecified Status: Acute Assessment and Plan: Patient has clinical picture of congestive heart failure She has lower extremity edema but currently on room air and not in any respiratory distress This patient is currently in heart block and bradycardia with low cardiac output. Will hold Lasix at this time Check echocardiogram COVID-19 and fluid negative Plan DVT prophylaxis -SCDs at this time Nutrition -NPO Code Status -patient requests to be Full Code Total Critical Care Time - 35 minutes Due to a high probability of clinically significant, life threatening deterioration, the patient required my highest level of preparedness to intervene emergently and I personally spent this critical care time directly and personally managing the patient. This critical care time included obtaining a history; examining the patient; pulse oximetry; ordering and review of studies; arranging urgent treatment with development of a management plan; evaluation of patient's response to treatment; frequent reassessment; and discussions with other providers. It was exclusive of separately billable procedures and treating other patients and teaching time. Please see Assessment and Plan section and the rest of the note for further information on patient assessment and treatment [employer] Consult Note Consult date: 02/13/22 Reason for consult: Heart block HPI: Dalia Mclean is a 76 year old female with past medical history of hyperlipidemia pancreatic and breast cancer status post surgery and chemotherapy presented today with chief complaint of shortness of breath on exertion, orthopnea and dizziness. Patient states over last 1 month she has been feeling sick and mostly having shortness of breath on exertion and laying flat in bed. She has been using 2 pillows to sleep. Has developed some leg swelling.. She also had some cough which is mostly dry in the beginning but later had spit associated with it. She did not have any fever or sick contacts. She states that she saw primary care physician and was given Z-Tin which did not help. She states she also Wean feeling dizzy and lightheaded occasional sensation of about to pass out. Denies actually passing out or loss of consciousness. She states she has had COVID-19 vaccine and COVID-19 infection in 2020 All other systems were reviewed and were negative In ED patient was found to be in second-degree type 2 av block with bradycardia. He was placed on transcutaneous pacemaker and Cardiology was consulted. Patient was evaluated in ER. Review of Systems Review of Systems: All systems reviewed & are unremarkable except as noted in HPI and below (HPI) [facility] Past Medical History Medical History Arthritis
--- NOTE | 2022-02-13 13:09 | PC.NURSE ---
MULTIPLE RUNS OF VTACH NOTED ON THE MONITOR. DR. ACOSTA AWARE. PAGE OUT TO BANDAGE MAKER
--- NOTE | 2022-02-13 13:18 | PC.NURSE ---
CODE BLUE CALLED IN ED AT 1317. PT IN VTACH, SHOCKED ONCE WITH ED PHYSICIAN AT BEDSIDE. COMPRESSIONS STARTED. PT MORE ALERT
--- NOTE | 2022-02-13 13:26 | PC.NURSE ---
PERIPHERAL PULSES STRONG AND IRREGULAR AT THIS TIME. PT ALERT TO VERBAL STIMULI
--- NOTE | 2022-02-13 14:06 | PC.NURSE ---
PT RESTING ON STRETCHER. EXTERNAL PACING CONTINUES. FAMILY AT BEDSIDE. WAITING FOR RESTAURANT KITCHEN MANAGER TEAM.
--- NOTE | 2022-02-13 14:08 | WPDMODSED ---
Moderate Sedation Note-Pt Data Patient Data Diagnosis: Symptomatic bradycardia with high-grade AV block nonsustained ventricular tachycardia Present Complaint: this is a 76-year-old woman coming into the hospital with a recent onset of intermittent syncopal episodes. She was found to be bradycardic with high-grade AV block in the emergency room. In this setting she is also having runs of nonsustained ventricular tachycardia. She has no previous cardiac history. She has been seen by teamcenter consultant in the emergency room earlier today and the ED and intensivists have contacted me requesting that a temporary transvenous pacemaker be placed urgently because of these arrhythmias. Procedure to be performed/Plan: Temporary transvenous pacemaker Allergies Allergy/AdvReac Type Severity Reaction Status Date / Time pegfilgrastim Allergy Mild WELTS Verified 02/08/22 17:29 vancomycin Allergy Mild Hives Verified 02/08/22 17:29 Home Medications Medication Instructions Recorded Confirmed Type acyclovir 400 mg tablet 400 mg PO DAILY PRN HERPES 11/09/20 02/08/22 History cholecalciferol (vitamin D3) 250 20,000 unit PO DAILY 11/09/20 02/08/22 History mcg (10,000 unit) capsule diphenhydramine HCl 25 mg tablet 25 mg PO QHS 11/09/20 02/08/22 History (Benadryl Allergy) [id number] 1 cap PO BID PRN Heartburn 11/09/20 02/08/22 History 24,000-76,000-120,000 unit capsule,delayed rel (Creon) melatonin 5 mg tablet 5 mg PO QHS 11/09/20 02/08/22 History multivitamin 1 tablet PO DAILY 11/09/20 02/08/22 History raloxifene 60 mg tablet 60 mg PO DAILY 11/09/20 02/08/22 History trazodone 50 mg tablet 25 mg PO DAILY PRN insomnia 11/09/20 02/08/22 History aspirin 81 mg tablet 81 mg PO DAILY 11/23/20 02/08/22 History calcium citrate 250 mg PO BID #60 tabs 01/19/22 02/08/22 Rx methocarbamol 750 mg tablet 750 mg PO TID PRN muscle spasms 01/19/22 02/08/22 Rx #30 tabs albuterol sulfate 90 mcg/actuation 2 puff inhalation QID PRN 02/08/22 Rx aerosol inhaler shortness of breath or wheezing #6.7 grams azithromycin 250 mg tablet See Rx Instructions PO .COMPLEX #6 02/08/22 Rx (Zithromax Z-Tin) tabs Current Medications: Active Medications Lipase/Protease/Amylase (Lipase/Amylase/Protease 12,000 Units Cap) 1 cap PO TIDWM NUBIA Aspirin (Aspirin 81 Mg Enteric Tablet) 81 mg PO QAM NUBIA Calcium Citrate (Calcium Citrate 315 Mg/Vitamin D 250 Units Tab) 1 tablet PO BID NUBIA Amiodarone HCl/Dextrose (Nexterone 360 Mg/D5w 200 Ml) 360 mg in 200 mls @ 33.333 mls/hr IV CONT .Q6H ONE Stop: 02/13/22 16:09 Last Admin: 02/13/22 10:47 Dose: Not Given Acetaminophen (Ofirmev 1,000 Mg Ivpb) 1,000 mg in 100 mls @ 400 mls/hr IVPB Q6H PRN PRN Reason: Mild Pain (1-3) or Fever Stop: 02/14/22 10:57 Perflutren Lipid Microsphere (Perflutren Lipid Microspheres 1.5 Ml Vial Diluted To 10 Ml Total Volume) 0 ml IV PUSH ONCE PRN; Protocol PRN Reason: adequate visualization Stop: 02/15/22 10:44 Perflutren Lipid Microsphere (Perflutren Lipid Microspheres 1.5 Ml Vial Diluted To 10 Ml Total Volume) 0 ml IV PUSH ONCE PRN; Protocol PRN Reason: adequate visualization Stop: 02/15/22 12:54 Raloxifene HCl (Raloxifene Hcl (*Chemo) 60 Mg Tablet) 60 mg PO QAM NUBIA Trazodone HCl (Trazodone Hcl 25 Mg Tablet) 25 mg PO HS PRN PRN Reason: Insomnia Sedation/Anesthesia: No previous sedation/anesthesia problems (including family history). [facility] Past Medical History Medical History Arthritis Ashkenazi Amish ancestry Combined hyperlipidemia Cyst of eye Essential (primary) hypertension History of breast cancer History of pancreatic cancer Multinodular goiter Raynaud's phenomenon without gangrene Vitamin D deficiency Surgical History Surgical History H/O cataract removal with insertion of prosthetic lens 2012 H/O section 1972 & 1975 Hist
--- NOTE | 2022-02-13 14:43 | WPDCARDPROC ---
Cardiac Cath Procedure Note Date of procedure:: 02/13/22 Performing physician:: Adam Mcneil MD Indication:: symptomatic bradycardia with high-grade AV block nonsustained ventricular tachycardia Brief clinical history:: this is a 76-year-old woman who presented to the hospital with severe weakness and recent syncopal episodes. She was found to have high-grade AV block as well as runs of nonsustained ventricular tachycardia. The patient has no previous cardiac history and is taking no medications that would affect AV node physiology. In this instance I was requested to bring her to the laborer shellfish processing for the urgent/ emergent temporary pacing wire. Transcutaneous pacemaking was attempted in the emergency room which has been unreliable Procedure Procedure performed:: temporary transvenous pacemaker Sedation/Medication given:: no sedation Access site:: right femoral vein Estimated blood loss:: minimal Procedure note:: patient was brought to the cardiac catheterization lab where the right femoral triangle was prepared and draped in the normal fashion. Anesthesia was provided with 1% lidocaine infiltrated locally. Using the modified Seldinger technique the femoral vein was punctured and a 5 [place] vascular sheath was placed. I then used a balloon tipped temporary pacing wire under fluoroscopic visualization and placed a wire to the right ventricle. The pacing wire was placed into the septal position and connected to the pacemaker generator. Appropriate pacing and sensing performance was demonstrated. The lead was then secured with 2-0 silk ties and the device was, covered with the sleeve to allow maneuvering of the catheter. The patient will be taken to the ICU for further management. Plans will be in place for placement of a permanent pacemaker likely tomorrow. This procedure was well tolerated and uneventful. Findings:: As above Conclusion:: successful uncomplicated implantation of temporary transvenous pacing wire for treatment of symptomatic bradycardia and this 76-year-old lady with high-grade AV block resulting in symptomatic Skyler arrhythmias and also resulting in bradycardia triggered ventricular tachycardia. Adam Mcneil MD [facility]
--- NOTE | 2022-02-13 14:59 | ADMGEN ---
This patient, Dalia Mclean, was admitted to Intensive Care Unit-2 at 1451. Patient/family oriented to hospital policies and general routines including ID bracelet, bed and alarms, visiting hours, pain management, procedures, bathroom and other care routines, personal items, smoking policy, room service/diet, and visiting hours. Information on how to activate the Rapid Response Team has been discussed. Patient/Family are encouraged to report perceived risks to care and to ask questions if they do not understand what they are told or what they should do.
[2022-02-13] MEDS: POTASSIUM CHLORIDE 20 MEQ TABLET 40 MEQ PO (15:30)
[2022-02-13] MEDS: MAGNESIUM SULF 1 GM/D5W 100 ML 1 GM/100 ML BAG IVPB (15:30)
[2022-02-13] MEDS: LIPASE/AMYLASE/PROTEASE 12,000 UNITS CAP 1 CAP PO (15:32)
--- NOTE | 2022-02-13 15:39 | PM.IMHP ---
H&P: HPI History of Present Illness Date/Time: 02/13/22 15:39 Chief Complaint: shortness of breath Narrative: ED-HPI Narrative: 76 years old white female came from home by ambulance because of shortness of breath for at least last 6 days.? She denies any fever, chills, nausea, vomiting, chest pain or back pain.? Patient on trazodone for insomnia otherwise no medicine.? She does not smoke drinks occasionally does not use drugs.? Patient is fully vaccinated for COVID-19 did not have the flu vaccine yet History of left breast cancer, status post lumpectomy, 18 years ago, was told that she was cured. History of pancreatic cancer, status post Whipple surgery 6-1/2-year ago, and was told that she was cured while in the ER patient had a syncopal episode patient was seen by Cardiology and was found to have high-grade heart block patient was emergently taken to cardiac labor gang supervisor and temporary pacemaker was placed, patient states feeling much better denies any chest pain or shortness of breath palpitation of fever or chills. currently patient is in ICU. patient admitted as inpatient for high-grade heart block patient will stay in hospital for 2 midnights. Review of Systems Review of Systems: All systems reviewed & are unremarkable except as noted in HPI and below (HPI) [facility] Past Medical History Medical History Arthritis Ashkenazi Scientology ancestry Combined hyperlipidemia Cyst of eye Essential (primary) hypertension History of breast cancer History of pancreatic cancer Multinodular goiter Raynaud's phenomenon without gangrene Vitamin D deficiency Surgical History Surgical History H/O cataract removal with insertion of prosthetic lens 2012 H/O section 1971 & 1975 History of dilatation and curettage 1973, 1976, 1978 Hx of blepharoplasty 2014 Hx of cholecystectomy 1997 Hx of hernia repair 2017 Hx of rotator cuff surgery 2003 Hx of tonsillectomy 1964 S/P thyroid biopsy 2017 [place] teeth removed 1971 Family History Family History (Updated 02/13/22 @ 15:50 by Ирина Rocha RN) Father Family history of lung cancer Mother Family history of malignant neoplasm of skin Sibling Family history of malignant neoplasm of skin Family history of lymphoma Carcinoma of colon Grandparent Family history of malignant neoplasm of breast Acute myocardial infarction Other Family history of malignant neoplasm of male breast Hypertension Social History Social History Smoking status: Never smoker Second hand tobacco smoke exposure: Yes Alcohol intake: never Substance use: never Substance use type: does not use Lack of Transportation: No Lack of Food: Never True Current Housing: I Have Housing Concerned About Future Housing: No Difficulty Paying Gas/Electric Bills: No Difficulty Paying for Meds: No Currently Unemployed: No Education: Decline to Answer Difficulty w/ Childcare or Family Care: No Spiritual care concerns: No Meds Home Medications and Allergies Home Medications Medication Instructions Recorded Confirmed Type raloxifene 60 mg tablet 60 mg PO DAILY 11/09/20 02/13/22 History trazodone 50 mg tablet 25 mg PO HS PRN insomnia 11/09/20 02/13/22 History [id number]-[id number] 1 cap PO TIDWM 02/13/22 02/13/22 History 24,000-76,000-120,000 unit capsule,delayed rel (Creon) Allergies Allergy/AdvReac Type Severity Reaction Status Date / Time pegfilgrastim Allergy Mild WELTS Verified 02/08/22 17:29 vancomycin Allergy Mild Hives Verified 02/08/22 17:29 Vital Signs Vital Signs - 24 hr 02/13/22 09:35 02/13/22 09:46 02/13/22 11:52 Temperature 97.0 F L Pulse Rate 30 L 62 Respiratory Rate 16 Blood Pressure 162/76 H Pulse Oximetry 99 99 Oxygen Delivery Room Air Room Air 02/13/22
[2022-02-13] MEDS: AMIODARONE 360 MG/D5W 200 ML 360 MG/200 ML BAG 33.33 MG IV CONT ×2 (15:55→22:09)
[2022-02-13] MEDS: traZODone HCL 25 MG TABLET PO (21:11)
[2022-02-13 21:13] LABS: Troponin I 0.072 ng/mL (0.000-0.034)
[2022-02-14] VITALS (19 sets, daily range): BP systolic 94–160; BP diastolic 51–93; PULSE 60–100; RESP 10–28; TEMP 36.3–37.1; O2SAT 94–97
[2022-02-14] MEDS: AMIODARONE 360 MG/D5W 200 ML 360 MG/200 ML BAG 33.33 MG IV CONT ×2 (04:04→16:45)
[2022-02-14 04:31] LABS: Hematocrit 34.5 % (37.0-47.0); Hemoglobin 11.5 g/dL (12.0-15.0); Mean Corpuscular HGB Conc 33.3 g/dl (32-36); Mean Corpuscular Hemoglobin 31.8 pg (26-34); Mean Corpuscular Volume 95.3 fl (80-100); Mean Platelet Volume 10.3 fl (7.4-10.4); Platelet Count Result 223 k/mm3 (150-375); Red Blood Count 3.62 M/mm3 (4.2-5.4); Red Cell Distribution Width 14.6 % (11.5-14.5)
[2022-02-14 04:50] LABS: Alanine Aminotransferase 40 U/L (6-35); Albumin Level 3.5 g/dL (3.5-5.1); Alkaline Phosphatase 78 U/L (38-126); Anion Gap 9 mmol/L (8-16); Aspartate Amino Transferase 39 U/L (14-36); Bilirubin,Total 0.3 mg/dL (0.2-1.3); Blood Urea Nitrogen 8 mg/dL (7-17); Calcium 8.4 mg/dL (8.4-10.2); Carbon Dioxide 22 mmol/L (22-30); Chloride 107 mmol/L (98-107); Estimated CRCL calculation 61 ml/min; Estimated Glomerular Filt Rate > 60; Glucose 130 mg/dL (65-110); Phosphorus 2.6 mg/dL (2.5-4.5); Sodium 138 mmol/L (137-145)
[2022-02-14 07:19] LABS: Troponin I 0.053 ng/mL (0.000-0.034)
--- NOTE | 2022-02-14 07:50 | PM.PNCARD ---
Progress Note: A&P Assessment and Plan (1) Atrioventricular block, second degree: Code(s): I44.1 - Atrioventricular block, second degree Status: Acute Assessment and Plan: Second degree AV block, type II with 4:1 block. BP is stable. Temporary transvenous pacemaker in place pacing at 80 bpm. Monitor on telemetry. Discuss need for PPM and she is agreeable for it. Dr. Mcneil plan on placing it later this morning. Await echo to be done prior to PPM. (2) Ventricular tachycardia (paroxysmal): Code(s): I47.29 - Other ventricular tachycardia Status: Acute Assessment and Plan: Probably due to bradycardia induced VT. Had sustained VT in ER requiring defibrillation/short round of CPR. Monitor on telemetry. Currently on Amiodarone drip at 1 mg/min. Check echo. If no cardiomyopathy, then will stop Amiodarone drip. Subjective Date/time seen: 02/14/22 07:50 Interval history: Reports being uncomfortable lying flat on her back all night due to temporary pacemaker in place. She feels bloated in her abdomen. No chest pain or sob. Exam Const: General: cooperative, healthy appearing and comfortable Orientation/consciousness: oriented to person, oriented to place and oriented to time Resp: Auscultation: clear to auscultation bilaterally, no crackles, no rales, no rhonchi and no wheezes Cardio: Rate: regular rate Rhythm: regular rhythm Heart sounds: no murmurs Peripheral pulses: dorsalis pedis present Neuro: General: oriented to person, oriented to place and oriented to time Extrem: Right lower extremity: no edema Left lower extremity: no edema Objective Data Vital Signs Vital Signs: Vital Signs - 24 hr 02/13/22 09:35 02/13/22 09:46 02/13/22 11:52 Temperature 97.0 F L Pulse Rate 30 L 62 Pulse Rate [Bilateral Pedal (Dorsalis Pedis) Palpation] Respiratory Rate 16 Blood Pressure 162/76 H Pulse Oximetry 99 99 Oxygen Delivery Room Air Room Air 02/13/22 12:48 02/13/22 11:14 02/13/22 11:16 Temperature 97.8 F Pulse Rate 60 51 L 57 L Pulse Rate [Bilateral Pedal (Dorsalis Pedis) Palpation] Respiratory Rate 18 28 H 23 H Blood Pressure 168/72 H Pulse Oximetry 99 98 99 Oxygen Delivery 02/13/22 11:30 02/13/22 11:45 02/13/22 12:00 Temperature Pulse Rate 54 L 59 L 61 Pulse Rate [Bilateral Pedal (Dorsalis Pedis) Palpation] Respiratory Rate 24 H 23 H 24 H Blood Pressure Pulse Oximetry 97 Oxygen Delivery 02/13/22 12:15 02/13/22 12:30 02/13/22 15:55 Temperature Pulse Rate 50 L 49 L 81 Pulse Rate [Bilateral Pedal (Dorsalis Pedis) Palpation] Respiratory Rate 22 H 24 H Blood Pressure 159/73 H Pulse Oximetry 93 99 Oxygen Delivery 02/13/22 16:00 02/13/22 16:00 02/13/22 16:00 Temperature Pulse Rate 83 83 83 Pulse Rate [Bilateral Pedal (Dorsalis Pedis) Palpation] Respiratory Rate 21 H 21 H Blood Pressure 134/74 Pulse Oximetry 90 90 Oxygen Delivery Room Air 02/13/22 18:00 02/13/22 18:00 02/13/22 20:00 Temperature Pulse Rate 99 99 Pulse Rate [Bilateral Pedal (Dorsalis Pedis) Palpation] 80 Respiratory Rate 14 Blood Pressure 100/77 Pulse Oximetry 97 Oxygen Delivery 02/13/22 20:00 02/13/22 20:00 02/13/22 21:25 Temperature 98.6 F Pulse Rate 81 80 Pulse Rate [Bilateral Pedal (Dorsalis Pedis) Palpation] Respiratory Rate 22 H Blood Pressure 166/82 H 166/78 H Pulse Oximetry 94 95 Oxygen Delivery Room Air 02/13/22 22:00 02/13/22 22:00 02/13/22 22:09 Temperature Pulse Rate 81 81 80 Pulse Rate [Bilateral Pedal (Dorsalis Pedis) Palpation] Respiratory Rate 22 H Blood Pressure 154/72 H 154/72 H Pulse Oximetry 96 Oxygen Delivery 02/13/22 20:00 02/14/22 00:00 02/14/22 00:00 Temperature Pulse Rate 81 Pulse Rate [Bilateral Pedal (Dorsalis Pedis) Palpation] 80 Respiratory Rate Blood Pressure Pulse Oximetry 96 Oxygen Delivery Room Air 02/14/22
[2022-02-14] MEDS: hydrALAZINE HCL 20 MG/ML VIAL 10 MG IV PUSH ×2 (08:26→12:09)
--- NOTE | 2022-02-14 09:00 | ECHO_ITS ---
Patient Info Name: Dalia Mclean Age: 76 years : 1945 Gender: Female Ht: 61 in Wt: 130 lbs BSA: 1.60 m2 HR: 81 bpm BP: 156 / 93 mmHg Technical Quality: Good Exam Date: 02/14/2022 8:10 AM Exam Location: [facility] Patient Status: Inpatient Admit Date: 02/13/2022 Staff Ordering Physician: Glen Huston MD Cloth Finisher: Joleen Jackson RDCS Attending Provider: Lee Ann Linton DO Exam Type: CA echo doppler color flow Study Info Indications - CHF Complete two-dimensional, color flow and Doppler transthoracic echocardiogram is performed. Summary 1. Complete two-dimensional, color flow and Doppler transthoracic echocardiogram is performed. 2. Left ventricular chamber dimension is normal. 3. Left ventricular systolic function is moderately globally reduced, estimated at 40-45%. 4. There is mildly increased left ventricular wall thickness. 5. Left ventricular septal wall motion is abnormal with septal motion related to bundle branch block. 6. The left ventricular diastolic function is normal. 7. E/e' 8 is minimally elevated. 8. Global longitudinal strain is abnormal at -7.2%. 9. Right ventricular systolic function is reduced based on abnormal TAPSE 1.2 cm. 10. Left atrial chamber dimension is mildly enlarged. 11. Right atrial chamber dimension is mildly enlarged. 12. There is moderate aortic valve sclerosis. 13. The mitral valve has moderately calcified annulus. 14. There is mild mitral valve regurgitation. 15. There is mild to moderate tricuspid valve regurgitation. 16. No pulmonary hypertension, estimated pulmonary arterial systolic pressure is 33 mmHg. 17. Normal inferior vena cava with <50% collapse upon inspiration consistent with elevated right atrial pressure, 10 mmHg. 18. There is small circumferential pericardial effusion. Left Ventricle E/e' 8 is minimally elevated. Global longitudinal strain is abnormal at -7.2%. Left ventricular systolic function is moderately globally reduced, estimated at 40-45%. Left ventricular chamber dimension is normal. There is mildly increased left ventricular wall thickness. Left ventricular septal wall motion is abnormal with septal motion related to bundle branch block. The left ventricular diastolic function is normal. Right Ventricle Right ventricular systolic function is reduced based on abnormal TAPSE 1.2 cm. Right ventricular chamber dimension is not well visualized. Left Atria Left atrial chamber dimension is mildly enlarged. Right Atria Right atrial chamber dimension is mildly enlarged. Aortic Valve The aortic valve is trileaflet. There is moderate aortic valve sclerosis. There is no aortic valve stenosis. There is no aortic valve regurgitation. Pulmonic Valve There is no pulmonic regurgitation. Mitral Valve The mitral valve has moderately calcified annulus. There is no mitral valve stenosis. There is mild mitral valve regurgitation. Tricuspid Valve There is mild to moderate tricuspid valve regurgitation. No pulmonary hypertension, estimated pulmonary arterial systolic pressure is 33 mmHg. Pericardium/Pleural No cardiac tamponade. There is small circumferential pericardial effusion. Inferior Vena Cava Normal inferior vena cava with <50% collapse upon inspiration consistent with elevated right atrial pressure, 10 mmHg. Aorta The aortic root size at the sinus of Valsalva is normal. Left Ventricular Outflow Tract
--- NOTE | 2022-02-14 09:20 | PC.NURSE ---
Patient to laboratory mechanic helper
--- NOTE | 2022-02-14 09:32 | WPDINTPN ---
Progress Note: A&P Assessment and Plan (1) Atrioventricular block, second degree: Code(s): I44.1 - Atrioventricular block, second degree Status: Acute Assessment and Plan: Patient has second-degree type 2 av block with 4-1 conduction. On arrival in the ER patient was placed on transcutaneous pacing. During my exam patient was being paced pretty frequently. Transcutaneous pacemaker was set at 30 mA and 40 rate I spoke to and requested Dr. Mcneil with intervention cardiology to evaluate patient for transvenous pacemaker at this time. Patient had a transvenous make medical placed yesterday evening which is currently set at 80. Blood pressure has improved with pacing She is going for permanent pacemaker today Echo has been done and results are pending Pending TSH (2) Ventricular tachycardia (paroxysmal): Code(s): I47.29 - Other ventricular tachycardia Status: Acute Assessment and Plan: Patient has had runs of nonsustained V-tach and later had 1 episode of VT in the ER requiring DC cardioversion Amiodarone was i started but was discontinued by Dr. Barron with Cardiology. Echo has been done and results is pending Normal potassium and magnesium Monitor (3) Congestive heart failure: Code(s): I50.9 - Heart failure, unspecified Status: Acute Assessment and Plan: Patient has clinical picture of congestive heart failure which may be secondary to bradycardia She had lower extremity edema but appears to have improved as her cardiac output is improved with increased urine output. She is on room air and has no crackles on exam Echo cardiogram was done and results are pending COVID-19 and flu negative Plan DVT prophylaxis -SCDs at this time Nutrition -NPO for procedure Code Status -patient requests to be Full Code Total Critical Care Time - 30 minutes Due to a high probability of clinically significant, life threatening deterioration, the patient required my highest level of preparedness to intervene emergently and I personally spent this critical care time directly and personally managing the patient. This critical care time included obtaining a history; examining the patient; pulse oximetry; ordering and review of studies; arranging urgent treatment with development of a management plan; evaluation of patient's response to treatment; frequent reassessment; and discussions with other providers. It was exclusive of separately billable procedures and treating other patients and teaching time. Please see Assessment and Plan section and the rest of the note for further information on patient assessment and treatment Subjective Date/time seen: 02/14/22 Overnight events reviewed. Patient had episode of V-tach later in the ER and was taken to cardiac catheterization lab and underwent transvenous pacemaker placement. Patient's this morning states that she she feels sore in her chest where she received debris CPR. She states that discomfort is all around the chest and not in specific area and is mostly soreness pain.. She complains of pain in her lower back from laying flat she rates at 4/10 and aching quality. She feels her swelling of legs is better. She denies any other complaints and is in good spirits. Patient denies fever, chest pain, shortness of breath, cough, nausea vomiting, abdominal pain,, diarrhea, headache or constipation. All other systems were reviewed and were negative Review of Systems Review of Systems: All systems reviewed & are unremarkable except as noted in HPI and below (HPI) Exam Narrative: General: Pt is alert awake and in NAD Lungs/Chest: Trachea central Clear BS B/L, No crackles or wheezing. Cardiac: Regular, intermittently paced. Normal S1 S2. No murmurs Circulation: Feet are warm Abdomen: Normal bowel sounds.. Soft. NT. ND. Extremities: No clubbing, cyanosis. Minimal Lower extremity edema is present which is improvement as compared to yesterday : Shira
--- NOTE | 2022-02-14 11:13 | ECG_ITS ---
Measurements Intervals Waterfall Rate: 93 P: 62 IL: 192 QRS: -86 QRSD: 151 T: 85 QT: 435 QTc: 543 Interpretive Statements ELECTRONIC VENTRICULAR PACEMAKER VENTRICULAR PREMATURE COMPLEXES BASELINE ARTIFACT- I, II, III, AVR, AVL, AVF, V1-V2 NO FURTHER INTERPRETATION IS POSSIBLE ATYPICAL ECG COMPARED TO ECG 02/13/2022 09:48:04 ELECTRONIC VENTRICULAR PACEMAKER NOW PRESENT Electronically Signed On 02-14-2022 16:31:43 STEEL BOX TOE INSERTER by Stewart Kenny D.O.
--- NOTE | 2022-02-14 11:15 | WPDCARDPROC ---
Cardiac Cath Procedure Note Date of procedure:: 02/14/22 Performing physician:: Adam Mcneil MD Indication:: high-grade AV block Brief clinical history:: this is a 76-year-old woman without previous cardiac history who has been having syncopal episodes recently. Upon presentation yesterday she had high-grade AV block with significant bradycardia and ventricular irritability as well. A temporary pacemaker was placed yesterday and she is brought back to the cardiovascular lab director today for permanent pacemaker implant Procedure Procedure performed:: implantation of permanent dual-chamber pacemaker withdrawal of temporary transvenous pacemaker wire Sedation/Medication given:: fentanyl 25 mg Versed 2 mg case start time 10 18 a.m. case end time 11:07 a.m. sedation provided by Shanell Escobar RN, trained observer Access site:: left subclavian vein Estimated blood loss:: 20 cc Procedure note:: patient was brought to the cardiac catheterization lab postabsorptive state where the left anterior chest wall was prepped and draped in the usual fashion. Anesthesia was then provided with 1% lidocaine infiltrated inferior to the clavicle. An incision was made from the midclavicular line to the deltopectoral groove about 1 in below the clavicle. Electrocautery was used to provide cutaneous hemostasis. Sharp and blunt dissection was used to dissect the subcutaneous tissue to the level of the Prieb prepectoral fascia and blunt dissection was then made to create a pacemaker pocket to the incision. The pocket was packed with antibiotic soaked 4 x 4. Attention was then turned to venous access. Using 2 separate puncture case with 6 Finnish safe sheaths the subclavian vein was punctured twice and the guidewires were placed under fluoroscopic visualization to the level of the right atrium. Using the safe sheaths the pacemaker leads detailed below were placed into the venous circulation to the level of the right atrium in the safe sheaths were peeled away. Attention was then turned to positioning the ventricular lead. The straight stylet was removed and I used a 3 cc syringe to form a J-tip stylet to steer the lead through the right ventricle out into the pulmonary artery position. The straight stylet was then placed back into the lead it was withdrawn and placed in the right ventricular apex. the lead was then tested using the analyzer with good pacing and sensing performance at 10 volts stimulus showed no evidence of extracardiac stimulation. Following this attention was turned to place sitting the atrial lead. Preformed J stylet was placed into the lead it was maneuvered into the right atrial appendage. Upon withdrawal of the stylet the lead tip was nicely fixed. It was then tested using the analyzer once again appropriate pacing and sensing performance was demonstrated and a 10 volt annulus again showed no sign of extracardiac stimulation. Following this the leads were secured to the base of pocket using a suture sleeves and 2-0 silk ties. The retained sponge was removed from the pocket. The pacemaker generator described below was then connected to the leads using the torque wrench and the entire assembly was placed into the newly created pocket. This was then closed layers using 3-0 Vicryl in interrupted fashion for the subcutaneous tissue and 4-0 Vicryl in a running subcuticular fashion for the skin. The wound was dressed with Aquacel and patient had postop chest x-ray ECG and antibiotics ordered. She was taken back to her room in stable condition with no evidence of any procedural complication. Following implantation of the permanent pacemaker device under fluoroscopic visualization the temporary lead was withdrawn from the heart and from the venous circulation. The venous sheath was removed and in the cardiovascular lab director with manual pressure. Findings:: Patient received a [employer] dual-chamber pacemaker model Edora * DR-T serial number [id number]. device is p
--- NOTE | 2022-02-14 11:50 | PC.NURSE ---
Patient back from chemical processing laborer with pacer implanted.
[2022-02-14] MEDS: SODIUM CHLORIDE 0.9% IV 1,000 ML 50 ML IV CONT (12:08)
[2022-02-14] MEDS: LIPASE/AMYLASE/PROTEASE 12,000 UNITS CAP 1 CAP PO ×2 (12:17→16:13)
[2022-02-14 18:08] LABS: Anion Gap 13 mmol/L (8-16); Blood Urea Nitrogen 9 mg/dL (7-17); Calcium 8.3 mg/dL (8.4-10.2); Carbon Dioxide 19 mmol/L (22-30); Chloride 106 mmol/L (98-107); Estimated CRCL calculation 61 ml/min; Estimated Glomerular Filt Rate > 60; Glucose 133 mg/dL (65-110); Potassium 3.7 mmol/L (3.4-5.0); Sodium 138 mmol/L (137-145)
[2022-02-14] MEDS: carvediloL 3.125 MG TABLET PO (20:50)
[2022-02-14] MEDS: ENOXAPARIN 40 MG/0.4 ML SYRINGE SUB-Q (20:50)
[2022-02-14] MEDS: SACUBITRIL/VALSARTAN 24-26 MG TABLET 1 TAB PO (20:50)
[2022-02-15] VITALS (16 sets, daily range): BP systolic 115–168; BP diastolic 49–82; PULSE 67–82; RESP 20–27; TEMP 36.6–36.8; O2SAT 94–97
[2022-02-15] MEDS: AMIODARONE 360 MG/D5W 200 ML 360 MG/200 ML BAG 16.67 MG IV CONT ×2 (00:30→09:41)
[2022-02-15 04:41] LABS: Hematocrit 32.5 % (37.0-47.0); Hemoglobin 10.5 g/dL (12.0-15.0); Mean Corpuscular HGB Conc 32.3 g/dl (32-36); Mean Corpuscular Hemoglobin 31.3 pg (26-34); Mean Platelet Volume 10.4 fl (7.4-10.4); Platelet Count Result 182 k/mm3 (150-375); Red Blood Count 3.35 M/mm3 (4.2-5.4); Red Cell Distribution Width 14.6 % (11.5-14.5)
[2022-02-15 04:51] LABS: Alanine Aminotransferase 28 U/L (6-35); Albumin Level 2.9 g/dL (3.5-5.1); Alkaline Phosphatase 63 U/L (38-126); Anion Gap 10 mmol/L (8-16); Aspartate Amino Transferase 27 U/L (14-36); Bilirubin,Total 0.3 mg/dL (0.2-1.3); Blood Urea Nitrogen 7 mg/dL (7-17); Carbon Dioxide 23 mmol/L (22-30); Chloride 104 mmol/L (98-107); Estimated CRCL calculation 61 ml/min; Estimated Glomerular Filt Rate > 60; Glucose 122 mg/dL (65-110); Magnesium 1.8 mg/dL (1.6-2.3); Phosphorus 2.7 mg/dL (2.5-4.5); Potassium 3.4 mmol/L (3.4-5.0); Sodium 137 mmol/L (137-145)
--- NOTE | 2022-02-15 07:44 | PM.PNCARD ---
Progress Note: A&P Assessment and Plan (1) Atrioventricular block, second degree: Code(s): I44.1 - Atrioventricular block, second degree Status: Acute Assessment and Plan: Second degree AV block, type II with 4:1 block. BP is stable. S/P Biotronik dual chamber pacemaker implant POD #[address] Mcneil. . (2) Ventricular tachycardia (paroxysmal): Code(s): I47.29 - Other ventricular tachycardia Status: Acute Assessment and Plan: Probably due to bradycardia induced VT, but had another 18 beat run at 4:32 pm on 02/14/22. Had sustained VT in ER requiring defibrillation/short round of CPR. Monitor on telemetry. Currently on Amiodarone drip at 0.5 mg/min. 02/14/22 Echo: EF 40-45%, moderately globally reduced, mild LVH, mild biatrial enlargement, mild MR, mild-mod TR, small pericardial effusion. Cannot assess for CAD given recent PPM implant. She won't be able to lift arm up for [employer] myoview. LHC is possibly done but would not be able to intervene with PCI due to risk of PPM pocket hematoma. Will continue Amiodarone drip for total 24 hours then change to 400 mg PO BID. Potassium 3.4. Given KCl 40 meq POx1. Mag 1.8. Give Mag Ryan 2 gm IVx1. Subjective Date/time seen: 02/15/22 07:44 Interval history: No chest pain or sob. Exam Const: General: cooperative, healthy appearing and comfortable Orientation/consciousness: oriented to person, oriented to place and oriented to time Resp: Auscultation: clear to auscultation bilaterally, no crackles, no rales, no rhonchi and no wheezes Cardio: Rate: regular rate and bradycardic Rhythm: regular rhythm Heart sounds: no murmurs Peripheral pulses: dorsalis pedis present Neuro: General: oriented to person, oriented to place and oriented to time Extrem: Right lower extremity: no edema Left lower extremity: no edema Objective Data Vital Signs Vital Signs: Vital Signs - 24 hr 02/14/22 08:00 02/14/22 08:00 02/14/22 08:00 Temperature 98.4 F Pulse Rate 81 81 Pulse Rate [Bilateral Pedal (Dorsalis Pedis) Palpation] 80 Respiratory Rate 10 L Blood Pressure 160/90 H Pulse Oximetry 94 Oxygen Delivery 02/14/22 08:00 02/14/22 11:58 02/14/22 12:00 Temperature 98.4 F Pulse Rate 81 82 85 Pulse Rate [Bilateral Pedal (Dorsalis Pedis) Palpation] Respiratory Rate 10 L 12 Blood Pressure 158/73 H Pulse Oximetry 94 95 Oxygen Delivery Room Air 02/14/22 12:58 02/14/22 12:00 02/14/22 14:00 Temperature 98.5 F Pulse Rate 100 85 98 Pulse Rate [Bilateral Pedal (Dorsalis Pedis) Palpation] Respiratory Rate 28 H 20 Blood Pressure 137/51 L Pulse Oximetry 96 95 Oxygen Delivery Room Air 02/14/22 16:00 02/14/22 16:00 02/14/22 16:00 Temperature 98.8 F Pulse Rate 92 92 92 Pulse Rate [Bilateral Pedal (Dorsalis Pedis) Palpation] Respiratory Rate 23 H 23 H Blood Pressure 157/60 H Pulse Oximetry 94 94 Oxygen Delivery Room Air 02/14/22 16:45 02/14/22 16:58 02/14/22 18:00 Temperature Pulse Rate 92 95 92 Pulse Rate [Bilateral Pedal (Dorsalis Pedis) Palpation] Respiratory Rate 25 H Blood Pressure 157/60 H 157/60 H Pulse Oximetry 97 Oxygen Delivery 02/14/22 20:00 02/14/22 20:00 02/14/22 20:00 Temperature 97.3 F L Pulse Rate 84 84 85 Pulse Rate [Bilateral Pedal (Dorsalis Pedis) Palpation] Respiratory Rate 25 H 22 H Blood Pressure 132/75 Pulse Oximetry 97 96 Oxygen Delivery Room Air 02/14/22 20:50 02/14/22 22:00 02/14/22 22:00 Temperature Pulse Rate 85 60 60 Pulse Rate [Bilateral Pedal (Dorsalis Pedis) Palpation] Respiratory Rate 20 Blood Pressure 94/60 L Pulse Oximetry 96 Oxygen Delivery 02/15/22 00:00 02/15/22 00:00 02/15/22 00:00 Temperature Pulse Rate 76 76 76 Pulse Rate [Bilateral Pedal (Dorsalis Pedis) Palpation] Respiratory Rate 20 26 H Blood Pressure 115/51 L Pulse Oximetry 96 94 Oxygen Delivery Room Air 02/15/22 00:30
[2022-02-15] MEDS: LIPASE/AMYLASE/PROTEASE 12,000 UNITS CAP 1 CAP PO ×3 (08:45→17:44)
[2022-02-15] MEDS: carvediloL 3.125 MG TABLET PO (08:45)
[2022-02-15] MEDS: POTASSIUM CHLORIDE 20 MEQ TABLET 40 MEQ PO (08:45)
[2022-02-15] MEDS: ENOXAPARIN 40 MG/0.4 ML SYRINGE SUB-Q (08:46)
[2022-02-15] MEDS: RALOXIFENE HCL (*CHEMO) 60 MG TABLET PO (08:46)
[2022-02-15] MEDS: SACUBITRIL/VALSARTAN 24-26 MG TABLET 1 TAB PO (08:47)
[2022-02-15] MEDS: MAGNESIUM SULF 2 GM/WATER 50ML 2 GM/50 ML BAG IVPB (10:00)
[2022-02-15] MEDS: ACETAMINOPHEN 325 MG TABLET 650 MG PO (10:53)
--- NOTE | 2022-02-15 16:56 | PM.IMPN ---
Progress Note: A&P Assessment and Plan (1) Atrioventricular block, second degree: Code(s): I44.1 - Atrioventricular block, second degree Status: Acute Assessment and Plan: ED-HPI Narrative: 76 years old white female came from home by ambulance because of shortness of breath for at least last 6 days.? She denies any fever, chills, nausea, vomiting, chest pain or back pain.? Patient on trazodone for insomnia otherwise no medicine.? She does not smoke drinks occasionally does not use drugs.? Patient is fully vaccinated for COVID-19 did not have the flu vaccine yet History of left breast cancer, status post lumpectomy, 18 years ago, was told that she was cured. History of pancreatic cancer, status post Whipple surgery 6-1/2-year ago, and was told that she was cured 02/15/2022 interval history: on 02/13 while in the ER patient had a syncopal episode patient was seen by Cardiology and was found to have high-grade heart block patient was emergently taken to cardiac clinical lab clerk and temporary pacemaker was placed, on 02/14 patient had permanent pacemaker placed, today patient is seen by Cardiology and review cardiac catheterization showed moderate reduced LV function EF of 45%, unable to further assess will Lexiscan or cardiac catheterization due to pacemaker, once clinically stable further recommendation to follow, patient states feeling much better denies any chest pain or shortness of breath palpitation of fever or chills. currently patient is in ICU. (2) Congestive heart failure: Code(s): I50.9 - Heart failure, unspecified Status: Acute Assessment and Plan: patient remains clinically will continue to monitor and further recommendation to follow. (3) Ventricular tachycardia (paroxysmal): Code(s): I47.29 - Other ventricular tachycardia Status: Acute Subjective Date/time seen: 02/15/22 16:56 02/15/2022 interval history: on 02/13 while in the ER patient had a syncopal episode patient was seen by Cardiology and was found to have high-grade heart block patient was emergently taken to cardiac clinical lab clerk and temporary pacemaker was placed, on 02/14 patient had permanent pacemaker placed, today patient is seen by Cardiology and review cardiac catheterization showed moderate reduced LV function EF of 45%, unable to further assess will Lexiscan or cardiac catheterization due to pacemaker, once clinically stable further recommendation to follow, patient states feeling much better denies any chest pain or shortness of breath palpitation of fever or chills. currently patient is in ICU. Review of Systems Review of Systems: All systems reviewed & are unremarkable except as noted in HPI and below (HPI) Exam Narrative: Patient is comfortable, NAD HEENT: eyes are clear and none icteric LUNGS: normal respiratory effort ABD: not distended Lower extremities: no edema SKIN: nonjaundiced Neuro: grossly intact. Objective Data Vital Signs Vital Signs: Vital Signs - 24 hr 02/14/22 16:58 02/14/22 18:00 02/14/22 20:00 Temperature Pulse Rate 95 92 84 Respiratory Rate 25 H Blood Pressure 157/60 H Pulse Oximetry 97 Oxygen Delivery 02/14/22 20:00 02/14/22 20:00 02/14/22 20:50 Temperature 97.3 F L Pulse Rate 84 85 85 Respiratory Rate 25 H 22 H Blood Pressure 132/75 Pulse Oximetry 97 96 Oxygen Delivery Room Air 02/14/22 22:00 02/14/22 22:00 02/15/22 00:00 Temperature Pulse Rate 60 60 76 Respiratory Rate 20 Blood Pressure 94/60 L Pulse Oximetry 96 Oxygen Delivery 02/15/22 00:00 02/15/22 00:00 02/15/22 00:30 Temperature Pulse Rate 76 76 76 Respiratory Rate 20 26 H Blood Pressure 115/51 L 115/51 L Pulse Oximetry 96 94 Oxygen Delivery Room Air 02/14/22 22:40 02/15/22 02:00 02/15/22 02:00 Temperature Pulse Rate 76 76 77 Respiratory Rate 21 H Blood Pressure 149/67 H Pulse Oximetry 96 Oxygen Delivery 02/15/22 04:00 02/15/22 0
[2022-02-15] MEDS: SACUBITRIL/VALSARTAN 49-51 MG TABLET 1 TABLET PO (21:00)
[2022-02-15] MEDS: carvediloL 6.25 MG TABLET PO (21:00)
[2022-02-15] MEDS: AMIODARONE HCL 200 MG TABLET PO (21:00)
[2022-02-15] MEDS: traZODone HCL 25 MG TABLET PO (21:00)
[2022-02-16] VITALS (13 sets, daily range): BP systolic 124–166; BP diastolic 55–75; PULSE 65–80; RESP 18–22; TEMP 36.4–36.9; O2SAT 94–98
[2022-02-16 03:49] LABS: Hematocrit 33.5 % (37.0-47.0); Hemoglobin 11.1 g/dL (12.0-15.0); Mean Corpuscular HGB Conc 33.1 g/dl (32-36); Mean Corpuscular Hemoglobin 31.4 pg (26-34); Mean Corpuscular Volume 94.9 fl (80-100); Mean Platelet Volume 10.1 fl (7.4-10.4); Platelet Count Result 190 k/mm3 (150-375); Red Blood Count 3.53 M/mm3 (4.2-5.4); Red Cell Distribution Width 14.1 % (11.5-14.5); White Blood Count 6.7 K/mm3 (4.5-10.0)
[2022-02-16 04:04] LABS: Alanine Aminotransferase 25 U/L (6-35); Albumin Level 2.9 g/dL (3.5-5.1); Alkaline Phosphatase 63 U/L (38-126); Anion Gap 6 mmol/L (8-16); Aspartate Amino Transferase 25 U/L (14-36); Bilirubin,Total 0.7 mg/dL (0.2-1.3); Blood Urea Nitrogen 5 mg/dL (7-17); Calcium 8.2 mg/dL (8.4-10.2); Carbon Dioxide 25 mmol/L (22-30); Chloride 103 mmol/L (98-107); Estimated CRCL calculation 71 ml/min; Estimated Glomerular Filt Rate > 60; Glucose 111 mg/dL (65-110); Magnesium 1.7 mg/dL (1.6-2.3); Phosphorus 2.8 mg/dL (2.5-4.5); Potassium 3.7 mmol/L (3.4-5.0); Sodium 134 mmol/L (137-145)
[2022-02-16 06:44] LABS: Thyroid Stimulating Hormone Reflex 0.707 uIU/mL (0.465-4.68)
--- NOTE | 2022-02-16 07:52 | PM.PNCARD ---
Progress Note: A&P Assessment and Plan (1) Atrioventricular block, second degree: Code(s): I44.1 - Atrioventricular block, second degree Status: Acute Assessment and Plan: Second degree AV block, type II with 4:1 block. BP is stable. S/P Biotronik dual chamber pacemaker implant POD #[address] Mcneil. F/U with Dr. Mcneil for incisional wound check in 1 week after discharge. (2) Ventricular tachycardia (paroxysmal): Code(s): I47.29 - Other ventricular tachycardia Status: Acute Assessment and Plan: Probably due to bradycardia induced VT, but had another 18 beat run at 4:32 pm on 02/14/22. Had sustained VT in ER requiring defibrillation/short round of CPR. Monitor on telemetry. Currently on Amiodarone drip at 0.5 mg/min. 02/14/22 Echo: EF 40-45%, moderately globally reduced, mild LVH, mild biatrial enlargement, mild MR, mild-mod TR, small pericardial effusion. Cannot assess for CAD given recent PPM implant. She won't be able to lift arm up for Supertecan myoview. LHC is possibly done but would not be able to intervene with PCI due to risk of PPM pocket hematoma. She was on Amiodarone drip for 24 hours then changed to 200 mg PO BID. Potassium 3.7. Given KCl 40 meq POx1. Mag 1.7. Give Mag Ryan 2 gm IVx1. Discuss Life Vest to prevent sudden cardiac arrest due to sustained VT. She wants to think about it this morning and let us know. If she decides against life vest she may go home today and f/u with me in 2 weeks. (3) Essential (primary) hypertension: Code(s): I10 - Essential (primary) hypertension Status: Chronic Assessment and Plan: High. Start Hydralazine 25 mg TID. Continue Coreg 6.25 mg BID and Entresto 49/51 mg BID. Subjective Date/time seen: 02/16/22 07:52 Interval history: No chest pain or sob. Exam Const: General: cooperative, healthy appearing and comfortable Orientation/consciousness: oriented to person, oriented to place and oriented to time Resp: Auscultation: clear to auscultation bilaterally, no crackles, no rales, no rhonchi and no wheezes Cardio: Rate: regular rate and bradycardic Rhythm: regular rhythm Heart sounds: no murmurs Peripheral pulses: dorsalis pedis present Neuro: General: oriented to person, oriented to place and oriented to time Extrem: Right lower extremity: no edema Left lower extremity: no edema Objective Data Vital Signs Vital Signs: Vital Signs - 24 hr 02/15/22 08:00 02/15/22 08:00 02/15/22 08:00 Temperature Pulse Rate 76 76 76 Respiratory Rate 23 H 23 H Blood Pressure 161/61 H Pulse Oximetry 96 96 Oxygen Delivery Room Air 02/15/22 08:45 02/15/22 09:41 02/15/22 10:00 Temperature Pulse Rate 82 78 78 Respiratory Rate Blood Pressure 161/61 H Pulse Oximetry Oxygen Delivery 02/15/22 12:00 02/15/22 12:00 02/15/22 12:00 Temperature 97.8 F Pulse Rate 81 81 81 Respiratory Rate 27 H 27 H Blood Pressure 156/82 H Pulse Oximetry 96 Oxygen Delivery Room Air 02/15/22 14:00 02/15/22 16:00 02/15/22 16:00 Temperature Pulse Rate 67 69 69 Respiratory Rate 27 H Blood Pressure Pulse Oximetry Oxygen Delivery Room Air 02/15/22 16:00 02/15/22 18:00 02/15/22 20:00 Temperature 97.8 F Pulse Rate 69 69 73 Respiratory Rate 27 H Blood Pressure 153/76 H Pulse Oximetry Oxygen Delivery 02/15/22 20:00 02/15/22 20:00 02/15/22 22:00 Temperature Pulse Rate 73 71 71 Respiratory Rate 27 H 22 H Blood Pressure 156/69 H Pulse Oximetry 96 96 Oxygen Delivery Room Air 02/16/22 00:00 02/16/22 00:00 02/16/22 00:00 Temperature Pulse Rate 65 67 67 Respiratory Rate 22 H 22 H Blood Pressure Pulse Oximetry 96 94 Oxygen Delivery Room Air 02/16/22 02:00 02/16/22 04:00 02/16/22 04:00 Temperature Pulse Rate 67 67 78 Respiratory Rate 22 H Blood Pressure Pulse Oximetry 94 Oxygen Delivery Room Air 02/16/22 04:00
--- NOTE | 2022-02-16 08:00 | ECG_ITS ---
Measurements Intervals Ray Rate: 79 P: 56 KS: 176 QRS: -80 QRSD: 166 T: 84 QT: 504 QTc: 580 Interpretive Statements ATRIAL SENSE- ELECTRONIC VENTRICULAR PACEMAKER BASELINE WANDER- I, II, III, AVR, AVL, AVF ATYPICAL ECG COMPARED TO ECG 02/14/2022 15:35:22 NO SIGNIFICANT CHANGES Electronically Signed On 02-16-2022 12:09:53 DIETARY SERVICE AIDE by Stewart Kenny D.O.
[2022-02-16] MEDS: MAGNESIUM SULF 2 GM/WATER 50ML 2 GM/50 ML BAG IVPB (08:31)
[2022-02-16] MEDS: ACETAMINOPHEN 325 MG TABLET 650 MG PO ×2 (08:32→17:54)
[2022-02-16] MEDS: POTASSIUM CHLORIDE 20 MEQ TABLET 40 MEQ PO (08:32)
[2022-02-16] MEDS: hydrALAZINE HCL 25 MG TABLET PO ×3 (08:34→17:50)
[2022-02-16] MEDS: AMIODARONE HCL 200 MG TABLET PO ×2 (08:35→20:22)
[2022-02-16] MEDS: SACUBITRIL/VALSARTAN 49-51 MG TABLET 1 TABLET PO ×2 (08:36→20:22)
[2022-02-16] MEDS: carvediloL 6.25 MG TABLET PO ×2 (08:36→20:22)
[2022-02-16] MEDS: ENOXAPARIN 40 MG/0.4 ML SYRINGE SUB-Q (08:36)
[2022-02-16] MEDS: RALOXIFENE HCL (*CHEMO) 60 MG TABLET PO (08:37)
--- NOTE | 2022-02-16 09:03 | PM.IMPN ---
Progress Note: A&P Assessment and Plan (1) Atrioventricular block, second degree: Code(s): I44.1 - Atrioventricular block, second degree Status: Acute Assessment and Plan: Status post Biotronik dual-chamber pacemaker on 02/14/2022 by Cardiology -cardiology following the patient (2) Congestive heart failure: Code(s): I50.9 - Heart failure, unspecified Status: Acute Assessment and Plan: Likely related to heart block, ventricular tachycardia, much improved -continue to monitor (3) Ventricular tachycardia (paroxysmal): Code(s): I47.29 - Other ventricular tachycardia Status: Acute Assessment and Plan: Patient with ventricular tachycardia in the ER requiring defibrillation is short run of CPR. -currently on p.o. amiodarone per Cardiology -cardiology discussed life vest option with the patient to prevent sudden cardiac arrest due to sustained V-tach. -she is agreeable for for the life vest, will have care coordination arrange for it. Plan DVT prophylaxis: Lovenox Stress ulcer prophylaxis: Not applicable Nutrition: Heart healthy diet Code Status: Full code Patient can be transferred to [facility] Due to a high probability of clinically significant, life threatening deterioration, the patient required my highest level of preparedness to intervene emergently and I personally spent this critical care time directly and personally managing the patient. This critical care time included obtaining a history; examining the patient; pulse oximetry; ordering and review of studies; arranging urgent treatment with development of a management plan; evaluation of patient's response to treatment; frequent reassessment; and discussions with other providers. It was exclusive of separately billable procedures and treating other patients and teaching time. Please see Assessment and Plan section and the rest of the note for further information on patient assessment and treatment Subjective Date/time seen: 02/16/22 09:03 Interval history: 76-year-old female who presented to the with syncopal episode. Patient was found to be in a high grade AV block, status post temporary pacemaker initially followed by permanent pacemaker on 02/14/2022 per Cardiology 02/16/2022: Patient seen and examined for the hospitalist group -denies any chest pain, shortness of breath, abdominal pain, nausea, vomiting. She complains pain in her feet which is chronic arthritis. Requesting for Tylenol. Patient states she is agreeable for a life vest. Patient is hemodynamically stable, afebrile, adequate urine output, paced rhythm on the monitor Review of Systems Review of Systems: All systems reviewed & are unremarkable except as noted in HPI and below Exam Narrative: General: Pleasant patient in no acute distress HEENT:? Pupils equal and reactive, sclerae is clear Neck:? Supple, no lymphadenopathy Respiratory:? Clear to auscultation bilaterally, no wheezing Cardiac:? S1-S2 is normal, paced rhythm, left chest pacemaker in place Abdomen:? Soft, nontender, nondistended, normoactive bowel sounds Extremities:? Palpable pedal pulses, no edema Neuro:? Patient is awake, alert, oriented, nonfocal Skin:? No lesions no Psych:? Normal affect and mentation Objective Data Vital Signs Vital Signs: Vital Signs - 24 hr 02/15/22 09:41 02/15/22 10:00 02/15/22 12:00 Temperature Pulse Rate 78 78 81 Respiratory Rate Blood Pressure 161/61 H Pulse Oximetry Oxygen Delivery 02/15/22 12:00 02/15/22 12:00 02/15/22 14:00 Temperature 97.8 F Pulse Rate 81 81 67 Respiratory Rate 27 H 27 H Blood Pressure 156/82 H Pulse Oximetry 96 Oxygen Delivery Room Air 02/15/22 16:00 02/15/22 16:00 02/15/22 16:00 Temperature 97.8 F Pulse Rate 69 69 69 Respiratory Rate 27 H 27 H Blood Pressure 153/76 H Pulse Oximetry Oxygen Delivery Room Air 02/15/22 18:00 02/15/22 20:00 02/15/22 20:00
--- NOTE | 2022-02-16 09:15 | PC.NURSE ---
Called Dr. Villarreal at 0915 to advise patient now Med/Telemetry. Life Vest will be placed today, and Dr. Kenny is ok with patient discharging after Life Vest placement.
--- NOTE | 2022-02-16 17:00 | PC.NURSE ---
Dr. Villarreal notified that Life Vest is in place. He advised discharge tomorrow.
[2022-02-16] MEDS: LIPASE/AMYLASE/PROTEASE 12,000 UNITS CAP 1 CAP PO (17:50)
[2022-02-16] MEDS: traZODone HCL 25 MG TABLET PO (20:22)
[2022-02-17] VITALS: PULSE 65; PULSE 66
[2022-02-17 03:44] VITALS: PULSE 62
[2022-02-17 04:30] VITALS: BP 140/64; PULSE 77; RESP 20; O2SAT 98
[2022-02-17 04:40] LABS: Hematocrit 33.4 % (37.0-47.0); Hemoglobin 11.3 g/dL (12.0-15.0); Mean Corpuscular HGB Conc 33.8 g/dl (32-36); Mean Corpuscular Hemoglobin 31.3 pg (26-34); Mean Corpuscular Volume 92.5 fl (80-100); Mean Platelet Volume 10.4 fl (7.4-10.4); Platelet Count Result 219 k/mm3 (150-375); Red Blood Count 3.61 M/mm3 (4.2-5.4); Red Cell Distribution Width 13.6 % (11.5-14.5); White Blood Count 6.5 K/mm3 (4.5-10.0)
[2022-02-17 04:53] LABS: Alanine Aminotransferase 20 U/L (6-35); Alkaline Phosphatase 63 U/L (38-126); Anion Gap 12 mmol/L (8-16); Aspartate Amino Transferase 23 U/L (14-36); Bilirubin,Total 0.6 mg/dL (0.2-1.3); Blood Urea Nitrogen 9 mg/dL (7-17); Calcium 8.6 mg/dL (8.4-10.2); Carbon Dioxide 24 mmol/L (22-30); Chloride 101 mmol/L (98-107); Estimated CRCL calculation 61 ml/min; Estimated Glomerular Filt Rate > 60; Glucose 108 mg/dL (65-110); Phosphorus 3.5 mg/dL (2.5-4.5); Potassium 3.9 mmol/L (3.4-5.0); Sodium 137 mmol/L (137-145)
--- NOTE | 2022-02-17 07:58 | PM.PNCARD ---
Progress Note: A&P Assessment and Plan (1) Atrioventricular block, second degree: Code(s): I44.1 - Atrioventricular block, second degree Status: Acute Assessment and Plan: Second degree AV block, type II with 4:1 block. BP is stable. S/P Biotronik dual chamber pacemaker implant POD #[address] Mcneil. F/U with Dr. Mcneil for incisional wound check in 1 week after discharge. (2) Ventricular tachycardia (paroxysmal): Code(s): I47.29 - Other ventricular tachycardia Status: Acute Assessment and Plan: Probably due to bradycardia induced VT, but had another 18 beat run at 4:32 pm on 02/14/22. Had sustained VT in ER requiring defibrillation/short round of CPR. Monitor on telemetry. Currently on Amiodarone drip at 0.5 mg/min. 02/14/22 Echo: EF 40-45%, moderately globally reduced, mild LVH, mild biatrial enlargement, mild MR, mild-mod TR, small pericardial effusion. Cannot assess for CAD given recent PPM implant. She won't be able to lift arm up for Ingressean myoview. LHC is possibly done but would not be able to intervene with PCI due to risk of PPM pocket hematoma. She was on Amiodarone drip for 24 hours then changed to 200 mg PO BID. Potassium 3.7. Given KCl 40 meq POx1. Mag 1.7. Give Mag Ryan 2 gm IVx1. Discuss Life Vest to prevent sudden cardiac arrest due to sustained VT and she has it on now. May d/c home today and f/u with me in 2 weeks. (3) Essential (primary) hypertension: Code(s): I10 - Essential (primary) hypertension Status: Chronic Assessment and Plan: Stable. On Hydralazine 25 mg TID. Continue Coreg 6.25 mg BID and Entresto 49/51 mg BID. Subjective Date/time seen: 02/17/22 07:58 Interval history: No chest pain or sob. Exam Const: General: cooperative, healthy appearing and comfortable Orientation/consciousness: oriented to person, oriented to place and oriented to time Resp: Auscultation: clear to auscultation bilaterally, no crackles, no rales, no rhonchi and no wheezes Cardio: Rate: regular rate Rhythm: regular rhythm Heart sounds: no murmurs Peripheral pulses: dorsalis pedis present Neuro: General: oriented to person, oriented to place and oriented to time Extrem: Right lower extremity: no edema Left lower extremity: no edema Objective Data Vital Signs Vital Signs: Vital Signs - 24 hr 02/16/22 08:00 02/16/22 08:00 02/16/22 08:35 Temperature 98.5 F Pulse Rate 75 78 77 Respiratory Rate 19 22 H Blood Pressure 166/75 H Pulse Oximetry 96 Oxygen Delivery 02/16/22 08:36 02/16/22 08:00 02/16/22 08:00 Temperature Pulse Rate 77 77 76 Respiratory Rate 22 H Blood Pressure Pulse Oximetry 96 Oxygen Delivery Room Air 02/16/22 12:00 02/16/22 12:00 02/16/22 16:00 Temperature 98.2 F Pulse Rate 71 74 72 Respiratory Rate 18 19 Blood Pressure 124/65 148/66 H Pulse Oximetry 96 Oxygen Delivery 02/16/22 16:00 02/16/22 19:41 02/16/22 19:42 Temperature 97.6 F Pulse Rate 73 80 80 Respiratory Rate 19 19 Blood Pressure 147/55 H Pulse Oximetry 98 98 Oxygen Delivery Room Air 02/16/22 19:45 02/16/22 20:22 02/16/22 20:22 Temperature Pulse Rate 80 79 80 Respiratory Rate Blood Pressure Pulse Oximetry Oxygen Delivery 02/17/22 00:00 02/17/22 00:00 02/17/22 03:44 Temperature Pulse Rate 66 65 62 Respiratory Rate Blood Pressure Pulse Oximetry Oxygen Delivery 02/17/22 04:30 Temperature Pulse Rate 77 Respiratory Rate 20 Blood Pressure 140/64 Pulse Oximetry 98 Oxygen Delivery Intake/Output Intake/Output: Intake & Output 02/14/22 02/15/22 02/16/22 02/17/22 23:59 23:59 23:59 23:59 Intake Total 3049 345 7359 Output Total 1000 1800 1650 Balance 507 -079 -866 Meds/Results Medications: Active Medications Generic Name Dose Route Start Last Admin Trade Name Freq PRN Reason Stop Dose Admin Acetaminophen 650 mg 02/15/22 09:47
[2022-02-17 08:00] VITALS: BP 157/65; PULSE 76; PULSE 79; RESP 17; TEMP 37.1; O2SAT 95
[2022-02-17] MEDS: ENOXAPARIN 40 MG/0.4 ML SYRINGE SUB-Q (08:29)
[2022-02-17] MEDS: LIPASE/AMYLASE/PROTEASE 12,000 UNITS CAP 1 CAP PO (08:30)
[2022-02-17 08:31] VITALS: PULSE 76
[2022-02-17] MEDS: carvediloL 6.25 MG TABLET PO (08:31)
[2022-02-17] MEDS: AMIODARONE HCL 200 MG TABLET PO (08:31)
[2022-02-17] MEDS: hydrALAZINE HCL 25 MG TABLET PO (08:32)
[2022-02-17] MEDS: SACUBITRIL/VALSARTAN 49-51 MG TABLET 1 TABLET PO (08:35)
--- NOTE | 2022-02-17 10:21 | PM.DS ---
DS: Admitting Diagnosis Discharge Date February 17, 2022 Admitting Diagnosis AFib flutter Acute on chronic CHF, systolic DS: Discharge Diagnosis Discharge Diagnosis (1) Atrioventricular block, second degree: Code(s): I44.1 - Atrioventricular block, second degree Status: Acute Assessment and Plan: Status post Biotronik dual-chamber pacemaker on 02/14/2022 by Cardiology -cardiology following the patient (2) Congestive heart failure: Code(s): I50.9 - Heart failure, unspecified Status: Acute Assessment and Plan: Likely related to heart block, ventricular tachycardia, much improved -continue to monitor (3) Ventricular tachycardia (paroxysmal): Code(s): I47.29 - Other ventricular tachycardia Status: Acute Assessment and Plan: Patient with ventricular tachycardia in the ER requiring defibrillation is short run of CPR. -currently on p.o. amiodarone per Cardiology -cardiology discussed life vest option with the patient to prevent sudden cardiac arrest due to sustained V-tach. -she is agreeable for for the life vest, will have care coordination arrange for it. DS: Summary Hospital Course Hospital Course: patient is 76 years old came in with atrial fibrillation found to be in RVR. Pacemaker was ultimately placed. Patient was also found to have systolic CHF. Acute on chronic. medications were adjusted it should be discharged on LifeVest. Time Spent with Patient Time attestation: Total time spent providing and/or coordinating discharge services: Exam Narrative: General: Pleasant patient in no acute distress HEENT:? Pupils equal and reactive, sclerae is clear Neck:? Supple, no lymphadenopathy Respiratory:? Clear to auscultation bilaterally, no wheezing Cardiac:? S1-S2 is normal, paced rhythm, left chest pacemaker in place Abdomen:? Soft, nontender, nondistended, normoactive bowel sounds Extremities:? Palpable pedal pulses, no edema Neuro:? Patient is awake, alert, oriented, nonfocal Skin:? No lesions no Psych:? Normal affect and mentation DS: Data Data Completed and Pending Labs on day of discharge: Labs from last 24 hours 02/17/22 02/17/22 04:19 04:19 WBC 6.5 RBC 3.61 L Hgb 11.3 L Hct 33.4 L MCV 92.5 MCH 31.3 MCHC 33.8 RDW 13.6 Plt Count 219 MPV 10.4 Sodium 137 Potassium 3.9 Chloride 101 Carbon Dioxide 24 Anion Gap 12 BUN 9 Creatinine 0.60 L Estim Creat Clear Calc 61 Estimated GFR > 60 Glucose 108 Calcium 8.6 Phosphorus 3.5 Magnesium 2.0 Total Bilirubin 0.6 AST 23 ALT 20 Alkaline Phosphatase 63 Total Protein 6.0 L Albumin 3.0 L Discharge Plan Discharge Attending physician on discharge: Adam Villarreal Consulting providers: [place] ; Stewart Kenny Discharging Clinician: Adam Villarreal Patient Disposition: Home, Self-Care Activity: no preference Diet: as tolerated Discharge Instructions: [facility] [address] [place] [address] DISCHARGE INSTRUCTIONS - POST PACEMAKER Activity 1. No driving until you are seen in the office for your incision check. 2. No lifting, pushing or pulling more than 5 pounds with affected arm for 1 MONTH 3. No lifting affected arm above shoulder height for 1 MONTH 4. Wear immobilizer/sling only if you are unable to remember the above activity restrictions. Recommend that it be worn at night. 5. You may shower AFTER
[2022-02-17 12:00] VITALS: PULSE 82
--- NOTE | 2022-02-17 12:47 | PC.NURSE ---
1205: Discharge education new medications, LifeVest and personal care completed. Patient discharged home with her son.
== END 2022-02-17 12:21 | disposition home or self-care (01) | DRG 242 ==
LOC: ANHED 10:58 → ANHICU 12:03
PROVIDERS: Internal Medicine; Internal Medicine Cardiovascular Disease; Specialist; Admitting Provider Student in an Organized Health Care Education/Training Program; Emergency Provider Emergency Medicine; PCP Internal Medicine; Visit Provider Chiropractor
PROC: 02HK3JZ Insertion of Pacemaker Lead into Right Ventricle, Percutaneous Approach (ICD-10-PCS; CPT 33210; principal; 2022-02-13 13:50)
PROC: 0JH606Z Insertion of Pacemaker, Dual Chamber into Chest Subcutaneous Tissue and Fascia, Open Approach (ICD-10-PCS; CPT 33208; principal; 2022-02-14 10:00)
DX: I44.1 Atrioventricular block, second degree (principal); I50.23 Acute on chronic systolic (congestive) heart failure; I48.91 Unspecified atrial fibrillation; I11.0 Hypertensive heart disease with heart failure; I47.20 Ventricular tachycardia, unspecified; E78.2 Mixed hyperlipidemia; Z85.3 Personal history of malignant neoplasm of breast; Z85.07 Personal history of malignant neoplasm of pancreas; I73.00 Raynaud's syndrome without gangrene; Z80.3 Family history of malignant neoplasm of breast; Z80.1 Family history of malignant neoplasm of trachea, bronchus and lung; Z80.0 Family history of malignant neoplasm of digestive organs; Z80.8 Family history of malignant neoplasm of other organs or systems; Z82.49 Family history of ischemic heart disease and other diseases of the circulatory system; Z20.822 Contact with and (suspected) exposure to COVID-19; Z79.899 Other long term (current) drug therapy; Z88.1 Allergy status to other antibiotic agents
CPT/HCPCS: 33208; 33210; 36415; 71045; 71046; 80048; 80053; 83735; 83880; 84100; 84443; 84484; 85025; 85027; 85610; 85730; 87086; 87637; 93005; 93306; 99285; A9270; C1779; C1785; C1894; J0282; J0360; J0690; J1644; J1650; J2250; J2405; J3010; J3475; J7030; J7040; J7050

== ENCOUNTER 2022-04-05 09:26 | Outpatient (CLI) | payer MEDICARE, SELFPAY ==
--- NOTE | ~2022-04-05 | NM_ITS ---
NUCLEAR MEDICINE CARDIAC GATED STRESS TEST: HISTORY: Ventricular tachycardia. TECHNIQUE: Rest images were obtained following intravenous administration of 10.3 mCi Tc99m Tetrofosm in. The patient was infused intravenously with Lexiscan (regadenoson). Then, 32.7 mCi Tc99m Tetrofosm in was administered intravenously, and stress images were obtained. Data was reconstructed into short axis and horizontal and vertical long axis SPECT images. Gated SPECT images were also obtained. FINDINGS: There is a small moderate-sized area of mild reversibility at the cardiac apex. There is normal left ventricular wall motion. Left ventricular ejection fraction is 64%. IMPRESSION: Small area of mild reversibility at the cardiac apex. Ejection fraction is 64%. Reviewed, dictated and finalized at location . HMAKER APPRENTICE
--- NOTE | 2022-04-05 10:02 | EST_ITS ---
Patient Info Name: Dalia Mclean Age: 76 years : 1945 Gender: Female Ht: 61 in Wt: 118 lbs BSA: 1.52 m2 HR: 94 bpm BP: 154 / 80 mmHg Heart Rhythm: Paced Exam Date: 04/05/2022 11:09 AM Exam Location: [facility] Patient Status: Outpatient Admit Date: 04/05/2022 Staff Ordering Physician: Stewart Kenny DO Attending Provider: Stewart Kenny DO Exercise Technologist: Octavia Rubio CT Exercise Physician: Stewart Kenny DO Exam Type: CA stress narinder w NM Study Info Indications I47.2 - Ventricular tachycardia A regadenoson stress test was performed. Summary 1. 1. Inconclusive lexiscan stress test for ischemic ST changes by ECG criteria due to ventricular paced rhythm. 2. 2. Baseline hypertension. 3. 3. Nuclear scan to follow and will be reported separately. Please correlate with it. 4. 4. Patient informed of the above results. Protocol: Lexiscan Stress ECG Details Stage: REST Duration (min): 11 min : 59 sec HR (bpm): 65 SBP (mmHg): 154 DBP (mmHg): 80 Stage: REST Duration (min): 12 min : 50 sec HR (bpm): 65 SBP (mmHg): 154 DBP (mmHg): 80 Stage: STAGE 1 Duration (min): 0 min : 59 sec HR (bpm): 87 SBP (mmHg): 160 DBP (mmHg): 70 Stage: RECOVERY Duration (min): 1 min : 0 sec HR (bpm): 89 SBP (mmHg): 160 DBP (mmHg): 70 Stage: RECOVERY Duration (min): 2 min : 0 sec HR (bpm): 84 SBP (mmHg): 160 DBP (mmHg): 70 Stage: RECOVERY Duration (min): 3 min : 0 sec HR (bpm): 81 SBP (mmHg): 142 DBP (mmHg): 66 Stage: RECOVERY Duration (min): 3 min : 5 sec HR (bpm): 80 SBP (mmHg): 142 DBP (mmHg): 66 Rest HR: 65 bpm Peak HR: 91 bpm Rest Sys BP: 154 mmHg Peak Sys BP: 160 mmHg Max Pred HR: 145 bpm % Max Pred HR: 63 % Target HR: 123 bpm Max RPP: 14,560 bpm*mmHg Termination Reason: Completed protocol Cardiac Symptoms: Shortness of breath, Nausea Total Time: 1 min : 0 sec Rest Rosario BP: 80 mmHg Peak Rosario BP: 70 mmHg Total Dose: 0.4 mg Resting ECG Electronic atrial and ventricular pacemaker. Stress ECG No ST changes. Arrhythmias None. Report Signatures
== END 2022-04-05 09:27 | disposition home or self-care (01) ==
PROVIDERS: PCP Internal Medicine; Visit Provider Internal Medicine Cardiovascular Disease
DX: I47.29 Other ventricular tachycardia (principal)
CPT/HCPCS: 78452; 93017; A9502; J2785

== ENCOUNTER → 2022-06-07 08:58 | Outpatient (CLI) | payer MEDICARE, SELFPAY ==
--- NOTE | ~2022-06-07 | DEXA_ITS ---
Bone Density Report Name: GRACIELA WESTFALL Age: 76 Sex: Female Ethnicity: White Date of : 1945 Indication: osteopenia; monitoring treatment; height loss; postmenopausal Referring Provider: TRUDY QUIÑONES Study: Bone densitometry was performed. Exam Date: June 07, 2022 Accession number: [id number] Bone Density: Region BMD T-score Z-score Classification AP Spine (L1-L4) 0.993 -0.5 2.0 Normal Femoral Neck (Left) 0.648 -1.8 0.3 Osteopenia Total Hip (Left) 0.786 -1.3 0.5 Osteopenia Femoral Neck (Right) 0.624 -2.0 0.1 Osteopenia Total Hip (Right) 0.722 -1.8 0.0 Osteopenia Total Hip Mean 0.754 -1.6 0.3 Osteopenia World Health Organization criteria for BMD impression classify patients as: Normal (T-score at or above -1.0), Osteopenia (T-score between -1.0 and -2.5), or Osteoporosis (T-score at or below -2.5). 10-year Fracture Risk: FRAX not reported because: Treated for osteoporosis Previous Exams: Region Exam Age BMD T-score BMD Change BMD Change Date g/cm2 vs Baseline vs Previous AP Spine(L1-L4) 06/07/2022 76 0.993 -0.5 0.045* 0.045* 05/19/2020 74 0.948 -0.9 Total Hip(Left) 06/07/2022 76 0.786 -1.3 -0.010 -0.010 05/19/2020 74 0.796 -1.2 Total Hip(Right) 06/07/2022 76 0.722 -1.8 -0.028* -0.028* 05/19/2020 74 0.750 -1.6 *Denotes significance at 95% confidence level, LSC for AP Spine = 0.022 g/cm2, LSC for Total Hip = 0.027 g/cm2 Clinical Information Provided by Patient: Is being treated for osteoporosis Has used the following medications: Evista (i.e. raloxifene), Vitamin D, Calcium Patient maximum height was 62 Menopause Age: 49 No regular weight bearing exercise Does not regularly consume dairy products Drinks caffeinated beverages Onset of menses at age 12 Number of children 2 Impression: The patient has low bone mass, based on the Right Femoral Neck T-score. The BMD for the Total Hip(Right) decreased, changing by -0.028 since the last DXA exam. Discussion: SIGNIFICANT BONE LOSS OBSERVED. Adherence to therapy (including calcium and vitamin D intake) should be assessed. If compliance is not a factor, review management and exclusion of secondary causes of bone loss. It is important to ask patients whether they are taking their medications and to encourage continued and appropriate compliance with their osteoporosis therapies to reduce fracture risk. It is also important to
== END ==
PROVIDERS: PCP Internal Medicine; Visit Provider Obstetrics & Gynecology Gynecology
DX: Z78.0 Asymptomatic menopausal state (principal); M85.852 Other specified disorders of bone density and structure, left thigh; M85.851 Other specified disorders of bone density and structure, right thigh
CPT/HCPCS: 77080

== ENCOUNTER 2022-06-20 09:09 | Outpatient (CLI) | payer MEDICARE, SELFPAY ==
[2022-06-20 10:44] LABS: Alanine Aminotransferase 25 U/L (6-35); Albumin Level 4.1 g/dL (3.5-5.1); Alkaline Phosphatase 64 U/L (38-126); Anion Gap 6 mmol/L (8-16); Aspartate Amino Transferase 33 U/L (14-36); Bilirubin,Total 0.6 mg/dL (0.2-1.3); Blood Urea Nitrogen 12 mg/dL (7-17); Calcium 8.9 mg/dL (8.4-10.2); Carbon Dioxide 24 mmol/L (22-30); Chloride 110 mmol/L (98-107); Cholesterol 156 mg/dL (0-200); Estimated Glomerular Filt Rate > 60; Glucose 103 mg/dL (65-110); HDL Direct 54 mg/dL; Potassium 4.2 mmol/L (3.4-5.0); Sodium 140 mmol/L (137-145); Triglycerides 152 mg/dL (<150)
[2022-06-20 10:58] LABS: LDL Cholesterol Direct 75 mg/dL
[2022-06-20 11:11] LABS: Vitamin D 25 Hydroxy 33.7 ng/mL
== END 2022-06-20 09:10 | disposition home or self-care (01) ==
PROVIDERS: Nurse Practitioner; PCP Internal Medicine; Referring Provider Obstetrics & Gynecology Gynecology; Visit Provider Internal Medicine Cardiovascular Disease
DX: E78.2 Mixed hyperlipidemia (principal); E55.9 Vitamin D deficiency, unspecified
CPT/HCPCS: 36415; 80053; 80061; 82306

== ENCOUNTER 2022-07-15 06:47 | Outpatient (CLI) | payer MEDICARE, SELFPAY ==
--- NOTE | ~2022-07-15 | CT_ITS ---
EXAMINATION: CT abdomen pelvis w con DATE: 07/15/2022 07:26 INDICATION: Malignant neoplasm of the pancreas. TECHNIQUE: Computed tomography (CT) of the abdomen and pelvis was performed with 100 cc Omnipaque 350 intravenous contrast. The dose-length product was 320.73 mGy-cm. Automated exposure control and iter ative reconstruction technique were employed. COMPARISON: CT dated 06/03/2019 FINDINGS: Cardiomegaly. Lung bases are unremarkable. No significant vascular abnormality. There are s urgical changes consistent with Whipple procedure. Small fat-containing supraumbilical hernia. Nonobs tructive bowel gas pattern. Colonic diverticulosis without evidence for diverticulitis. No free air o r free fluid. Stable liver cysts. There are calcified granulomas of the spleen. Nodular thickening of the adrenal g lands, likely adrenal hyperplasia. There is focal scarring posterior lateral margin of the left kidne y. No focal renal mass. No abnormal pelvic masses or fluid collections. Bladder is decompressed, alth ough grossly unremarkable. There is osteoarthritis of the hips. Moderate lumbar spondylosis with grad e 1 spondylolisthesis at L3-4. No lytic or blastic lesions. IMPRESSION: 1. Stable postsurgical changes without evidence for residual malignancy or metastatic disease. Reviewed, dictated and finalized at location B. IMPRESSION: 1. Stable postsurgical changes without evidence for residual malignancy or meta static disease.
== END 2022-07-15 06:48 | disposition home or self-care (01) ==
LOC: ANHIMG 06:50
PROVIDERS: PCP Internal Medicine; Visit Provider Internal Medicine Medical Oncology
DX: C25.0 Malignant neoplasm of head of pancreas (principal)
CPT/HCPCS: 74177; Q9967

== ENCOUNTER 2022-07-18 01:34 | Day surgery (SDC) | payer MEDICARE, SELFPAY ==
[2022-07-06 14:26] VITALS: BMI 23.3
[2022-07-18 09:38] VITALS: BP 136/59; PULSE 69; RESP 18; TEMP 36.2; O2SAT 100; BMI 22.8
--- NOTE | 2022-07-18 10:10 | PM.HPGS ---
History of Present Illness History of Present Illness Consent: Risks, benefits, and alternatives have been discussed and questions answered. Patient agrees to proceed with procedure. Chief complaint: family hx colon ca Narrative: Dalia Mclean is a 76 year old female Presents for screening colonoscopy. Patient reports that her current weight appetite and bowel movements are normal. Patient denies abdominal pain. She has had no bleeding. Family history is significant her brother had colon cancer. Patient herself has a history of pancreatic cancer for which she underwent a Whipple's resection 7 years ago. She states she has recovered and felt to be cancer free. She also has a history of breast cancer. Previous colonoscopy 5 years ago was unremarkable. Review of Systems Review of Systems: Review of systems noncontributory. [facility] Past Medical History Medical History Arthritis Ashkenazi Cheondoism ancestry Combined hyperlipidemia Cyst of eye Essential (primary) hypertension History of breast cancer History of pancreatic cancer Multinodular goiter Pacemaker Raynaud's phenomenon without gangrene Vitamin D deficiency Surgical History Surgical History H/O cataract removal with insertion of prosthetic lens 2012 H/O section 1972 & 1975 History of dilatation and curettage 1973, 1976, 1978 Hx of blepharoplasty 2015 Hx of cholecystectomy 1998 Hx of hernia repair 2017 Hx of rotator cuff surgery 2003 Hx of tonsillectomy 1964 S/P thyroid biopsy 2017 [place] teeth removed 1972 Family History Family History Father Family history of lung cancer Mother Family history of malignant neoplasm of skin Sibling Family history of malignant neoplasm of skin Family history of lymphoma Carcinoma of colon Grandparent Family history of malignant neoplasm of breast Acute myocardial infarction Other Family history of malignant neoplasm of male breast Hypertension Social History Social History Smoking status: Never smoker Second hand tobacco smoke exposure: Yes Alcohol intake: never Substance use: never Substance use type: does not use Lack of Transportation: No Lack of Food: Never True Current Housing: I Have Housing Concerned About Future Housing: No Difficulty Paying Gas/Electric Bills: No Difficulty Paying for Meds: No Currently Unemployed: No Education: Decline to Answer Difficulty w/ Childcare or Family Care: No Living arrangements: with family Spiritual care concerns: No Meds Home Medications and Allergies Home Medications Medication Instructions Recorded Confirmed Type raloxifene 60 mg tablet 60 mg PO DAILY 11/09/20 07/18/22 History trazodone 50 mg tablet 25 mg PO HS PRN insomnia 11/09/20 07/18/22 History [id number]-[id number] 1 cap PO TIDWM 02/13/22 07/18/22 History 24,000-76,000-120,000 unit capsule,delayed rel (Creon) amiodarone 200 mg tablet (Pacerone) 200 mg PO DAILY 30 days #30 tabs 03/11/22 07/18/22 Rx sacubitril 49 mg-valsartan 51 mg 1 tablet PO Q12HR 30 days #60 tabs 03/11/22 07/18/22 Rx tablet (Entresto) carvedilol 6.25 mg tablet (Coreg) 6.25 mg PO Q12HR 30 days #60 tabs 03/16/22 07/18/22 Rx acyclovir 400 mg tablet 400 mg PO DAILY PRN other 07/06/22 07/18/22 History Allergies Allergy/AdvReac Type Severity Reaction Status Date / Time pegfilgrastim Allergy Mild WELTS Verified 07/18/22 09:36 vancomycin Allergy Mild Hives Verified 07/18/22 09:36 Vital Signs Vital Signs - 24 hr 07/18/22 09:38 Temperature 97.2 F L Pulse Rate 69 Respiratory Rate 18 Blood Pressure 136/59 L Pulse Oximetry 100 Oxygen Delivery Room Air Exam Narrative: Physical exam reveals patient to be alert. Vital s
[2022-07-18] MEDS: LACTATED RINGERS 1,000 ML 150 ML IV CONT (10:20)
[2022-07-18 11:05] VITALS: BP 85/38; PULSE 60; RESP 22; O2SAT 98
[2022-07-18 11:15] VITALS: BP 94/45; PULSE 61; RESP 20; O2SAT 97
[2022-07-18 11:25] VITALS: BP 104/46; PULSE 65; RESP 22; O2SAT 97
== END 2022-07-18 11:44 | disposition home or self-care (01) ==
PROVIDERS: PCP Internal Medicine; Visit Provider Internal Medicine Gastroenterology
PROC: 0DJD8ZZ Inspection of Lower Intestinal Tract, Via Natural or Artificial Opening Endoscopic (ICD-10-PCS; CPT 45378; principal; 2022-07-18 10:45)
DX: Z12.11 Encounter for screening for malignant neoplasm of colon (principal); K64.8 Other hemorrhoids; K57.30 Diverticulosis of large intestine without perforation or abscess without bleeding; Z80.0 Family history of malignant neoplasm of digestive organs; I10 Essential (primary) hypertension; E55.9 Vitamin D deficiency, unspecified; I73.00 Raynaud's syndrome without gangrene; E78.49 Other hyperlipidemia; Z95.0 Presence of cardiac pacemaker; Z85.3 Personal history of malignant neoplasm of breast; Z85.07 Personal history of malignant neoplasm of pancreas
CPT/HCPCS: G0105; J2704; J7120

== ENCOUNTER 2022-07-27 11:21 | Outpatient (CLI) | payer MEDICARE, SELFPAY ==
--- NOTE | ~2022-07-27 | XR_ITS ---
EXAMINATION: XR wrist RT 2V INDICATION: Right wrist pain TECHNIQUE: Two views of the right wrist are obtained. COMPARISON: None available FINDINGS: Bone alignment is normal. There is no fracture. There is mild osteoarthritis of the triscap he and first carpometacarpal joints. Also seen is moderate osteoarthritis of the second metacarpophal angeal joint and first interphalangeal joint and mild osteoarthritis of the remaining metacarpophalan geal joints. IMPRESSION: 1. Polyarticular osteoarthritis. Reviewed, dictated and finalized at location B.
== END 2022-07-27 11:22 | disposition home or self-care (01) ==
PROVIDERS: PCP Family Medicine; Visit Provider Nurse Practitioner
DX: M19.031 Primary osteoarthritis, right wrist (principal)
CPT/HCPCS: 73100

== ENCOUNTER 2022-08-02 09:35 | Emergency (ER) | payer MEDICARE, SELFPAY ==
--- NOTE | 2022-08-02 09:44 | ED.URI ---
HPI - URI/Sore Throat General Chief Complaint: Upper Respiratory Infection Stated Complaint: sorethoat,congestion Time Seen by Provider: 08/02/22 09:59 Source: patient and RN notes reviewed Mode of arrival: ambulatory Limitations: no limitations History of Present Illness HPI Narrative: 77-year-old female presents with concern for sore throats, headache, slight productive cough. She reports symptoms started yesterday. Reports she was around kids on Monday. Reports a low-grade fever of 99. She denies abdominal pain, vomiting, rash. MD elicited complaint: sore throat Related Data Home Medications Medication Instructions Recorded Confirmed raloxifene 60 mg tablet 60 mg PO DAILY 11/09/20 08/02/22 trazodone 50 mg tablet 25 mg PO HS PRN insomnia 11/09/20 08/02/22 izizwf-[id number]-clwdujt 1 cap PO TIDWM 02/13/22 08/02/22 24,000-76,000-120,000 unit capsule,delayed rel (Creon) acyclovir 400 mg tablet 400 mg PO DAILY PRN other 07/06/22 08/02/22 ascorbic acid (vitamin C) 500 mg 500 mg PO DAILY 07/27/22 08/02/22 capsule calcium carbonate 430 mg calcium 430 mg PO DAILY 07/27/22 08/02/22 (1,000 mg) chewable tablet (Antacid Ultra Strength) cholecalciferol (vitamin D3) 250 500 mcg PO DAILY 07/27/22 08/02/22 mcg (10,000 unit) capsule cyanocobalamin (vitamin B-12) 1,000 mcg PO DAILY 07/27/22 08/02/22 1,000 mcg capsule diphenhydramine HCl 25 mg capsule 25 mg PO QHS 07/27/22 08/02/22 (Benadryl) lactobacillus combination no.9 4 4,000 mmu cells PO DAILY 07/27/22 08/02/22 billion cell capsule (Adult 50 Plus Probiotic) melatonin 5 mg capsule 5 mg PO .prn 07/27/22 08/02/22 multivitamin (One-A-Day Essential 1 tablet PO DAILY 07/27/22 08/02/22 tablet) resveratrol 250 mg capsule 500 mg PO DAILY 07/27/22 08/02/22 Allergies Allergy/AdvReac Type Severity Reaction Status Date / Time pegfilgrastim Allergy Mild WELTS Verified 08/02/22 09:50 vancomycin Allergy Mild Hives Verified 08/02/22 09:50 Review of Systems Review of Systems: CONSTITUTIONAL: Denies malaise, chills, sweats. Reports low-grade fever. EYES: Denies visual changes, redness, or discharge. ENT: Denies rhinorrhea, congestion, sinus pain, otalgia. Reports sore throat. CARDIOVASCULAR: Denies chest pain, palpitations, or edema. RESPIRATORY: Reports cough. Denies dyspnea. GASTROINTESTINAL: Denies abdominal pain, nausea, vomiting, diarrhea SKIN: Denies rash or itching. MUSCULOSKELETAL: Denies myalgia. NEUROLOGIC: Reports headache. All systems reviewed & are unremarkable except as noted in HPI and below PMFSH Past Medical History Medical History Arthritis Ashkenazi Cheondoism ancestry Combined hyperlipidemia Cyst of eye Essential (primary) hypertension History of breast cancer History of pancreatic cancer Multinodular goiter Pacemaker Raynaud's phenomenon without gangrene Vitamin D deficiency Surgical History Surgical History H/O cataract removal with insertion of prosthetic lens 2012 H/O section 1972 & 1975 History of dilatation and curettage 1973, 1976, 1978 Hx of blepharoplasty 2014 Hx of cholecystectomy 1998 Hx of hernia repair 2017 Hx of rotator cuff surgery 2003 Hx of tonsillectomy 1964 S/P thyroid biopsy 2017 [place] teeth removed 1972 Family History Family History Father Family history of lung cancer Mother Family history of malignant neoplasm of skin Sibling Family history of malignant neoplasm of skin Family history of lymphoma Carcinoma of colon Grandparent Family history of malignant neoplasm of breast Acute myocardial infarction Other Family history of malignant neoplasm of male breast Hypertension Social History Social History (Updated 07/27/22 @ 09:56 by Mandy Cortés MA) Smoking status: Never smoker Second
[2022-08-02 09:49] VITALS: BP 150/62; PULSE 78; RESP 16; TEMP 36.5; O2SAT 100
[2022-08-02 09:54] VITALS: BP 150/62; PULSE 78; RESP 16; TEMP 36.5; O2SAT 100
== END 2022-08-02 10:13 | disposition home or self-care (01) ==
PROVIDERS: Emergency Provider Nurse Practitioner; PCP Family Medicine
DX: J02.0 Streptococcal pharyngitis (principal); M19.90 Unspecified osteoarthritis, unspecified site; E78.2 Mixed hyperlipidemia; I10 Essential (primary) hypertension; I73.00 Raynaud's syndrome without gangrene; E55.9 Vitamin D deficiency, unspecified; Z95.0 Presence of cardiac pacemaker; Z85.3 Personal history of malignant neoplasm of breast; Z85.07 Personal history of malignant neoplasm of pancreas; E04.2 Nontoxic multinodular goiter
CPT/HCPCS: 87880; 99213; G0463

== ENCOUNTER 2023-02-04 09:02 | Outpatient (CLI) | payer MEDICARE, SELFPAY ==
[2023-02-04 10:26] LABS: Alanine Aminotransferase 37 U/L (6-35); Albumin Level 4.2 g/dL (3.5-5.1); Alkaline Phosphatase 74 U/L (38-126); Anion Gap 9 mmol/L (8-16); Aspartate Amino Transferase 38 U/L (14-36); Bilirubin,Total 0.6 mg/dL (0.2-1.3); Blood Urea Nitrogen 11 mg/dL (7-17); Calcium 9.4 mg/dL (8.4-10.2); Carbon Dioxide 23 mmol/L (22-30); Chloride 107 mmol/L (98-107); Cholesterol 178 mg/dL (0-200); Estimated Glomerular Filt Rate > 60; Glucose 105 mg/dL (65-110); HDL Direct 56 mg/dL; Sodium 139 mmol/L (137-145); Triglycerides 170 mg/dL (<150)
[2023-02-04 10:37] LABS: LDL Cholesterol Direct 79 mg/dL
[2023-02-04 10:50] LABS: Vitamin D 25 Hydroxy 26.8 ng/mL
[2023-02-04 10:54] LABS: Thyroid Stimulating Hormone 0.627 uIU/mL (0.465-4.680)
== END 2023-02-04 09:03 | disposition home or self-care (01) ==
LOC: ANHLAB 09:04
PROVIDERS: PCP Family Medicine; Visit Provider Nurse Practitioner
DX: E55.9 Vitamin D deficiency, unspecified (principal); Z79.899 Other long term (current) drug therapy
CPT/HCPCS: 36415; 80053; 80061; 82306; 84443

== ENCOUNTER 2023-02-08 12:33 | Outpatient (CLI) | payer MEDICARE, SELFPAY ==
--- NOTE | 2023-02-08 | ECHO_ITS ---
Patient Info Name: Dalia Mclean Age: 77 years : 1945 Gender: Female Ht: 61 in Wt: 125 lbs BSA: 1.57 m2 HR: 70 bpm BP: 145 / 70 mmHg Heart Rhythm: Sinus Rhythm Technical Quality: Good Exam Date: 02/08/2023 1:23 PM Exam Location: Echo Lab Patient Status: Outpatient Admit Date: 02/08/2023 Staff Ordering Physician: Stewart Kenny DO Integration Project Manager: Viviana Rossi RDCS Attending Provider: Stewart Kenny DO Referring Physician: Efraín LYNN; Exam Type: CA echo doppler color flow Study Info Indications - heart disease Complete two-dimensional, color flow and Doppler transthoracic echocardiogram is performed. Summary 1. Complete two-dimensional, color flow and Doppler transthoracic echocardiogram is performed. 2. Left ventricular chamber dimension is normal. 3. Left ventricular systolic function is normal, estimated at 55-60%. 4. There is mild concentric increased left ventricular wall thickness. 5. Left ventricular septal wall motion is abnormal with septal motion related to bundle branch block. 6. The left ventricular diastolic function is grade I diastolic dysfunction. 7. E/e' 8 is minimally elevated. 8. Linear artifact in right ventricle suggestive of catheter(s), pacemaker lead(s), or ICD lead(s). 9. Linear artifact in the right atrium suggestive of catheter(s), pacemaker lead(s), or ICD lead(s). 10. There is mild mitral valve regurgitation. 11. There is mild tricuspid valve regurgitation. 12. No pulmonary hypertension, estimated pulmonary arterial systolic pressure is 35 mmHg. Left Ventricle E/e' 8 is minimally elevated. Left ventricular chamber dimension is normal. Left ventricular systolic function is normal, estimated at 55-60%. There is mild concentric increased left ventricular wall thickness. Left ventricular septal wall motion is abnormal with septal motion related to bundle branch block. The left ventricular diastolic function is grade I diastolic dysfunction. Right Ventricle Linear artifact in right ventricle suggestive of catheter(s), pacemaker lead(s), or ICD lead(s). Right ventricular systolic function is normal and with normal TAPSE 1.9 cm. Right ventricular chamber dimension is normal. Left Atria Left atrial chamber dimension is normal. Right Atria Linear artifact in the right atrium suggestive of catheter(s), pacemaker lead(s), or ICD lead(s). Right atrial chamber dimension is normal. Aortic Valve The aortic valve is trileaflet. There is no aortic valve stenosis. There is no aortic valve regurgitation. Pulmonic Valve There is no pulmonic regurgitation. Mitral Valve There is no mitral valve stenosis. There is mild mitral valve regurgitation. Tricuspid Valve There is mild tricuspid valve regurgitation. No pulmonary hypertension, estimated pulmonary arterial systolic pressure is 35 mmHg. Pericardium/Pleural There is no pericardial effusion. Inferior Vena Cava Normal inferior vena cava with >50% collapse upon inspiration consistent with normal right atrial pressure, 5 mmHg. Aorta The aortic root size at the sinus of Valsalva is normal. Left Ventricular Outflow Tract Name Value Normal LVOT 2D LVOT Diameter 1.8 cm LVOT Doppler LVOT Peak Gradient
--- NOTE | ~2023-02-08 | XR_ITS ---
EXAMINATION: XR finger 4th LT min 2V DATE: 02/08/2023 12:53 INDICATION: Left hand fourth digit pain and swelling. TECHNIQUE: 4 views of left hand fourth digit were obtained. COMPARISON: None. FINDINGS: Bone alignment is normal. No fracture. There is severe osteoarthritis of proximal interphal angeal joint and moderate osteoarthritis of distal interphalangeal joint. IMPRESSION: 1. Polyarticular osteoarthritis. Reviewed, dictated and finalized at location E. C D STRIPPER
== END 2023-02-08 12:34 | disposition home or self-care (01) ==
PROVIDERS: PCP Family Medicine; Visit Provider Internal Medicine Cardiovascular Disease
DX: R93.1 Abnormal findings on diagnostic imaging of heart and coronary circulation (principal); M19.042 Primary osteoarthritis, left hand; I34.0 Nonrheumatic mitral (valve) insufficiency; I07.1 Rheumatic tricuspid insufficiency
CPT/HCPCS: 73140; 93306

== ENCOUNTER 2023-06-21 09:41 | Outpatient (CLI) | payer OTHER, SELFPAY ==
--- NOTE | ~2023-06-21 | CT_ITS ---
EXAMINATION: CT abdomen pelvis w con DATE: 06/21/2023 10:22 INDICATION: Malignant neoplasm of head of pancreas TECHNIQUE: Computed tomography (CT) of the abdomen and pelvis was performed with 100 CC Omnipaque 350 intravenous contrast. Automated exposure control and iterative reconstruction technique were employe d. Exam dose: 265.48 mGy-cm total exam DLP. COMPARISON: July 15, 2022 CT abdomen pelvis 04/06/2018 CT abdomen pelvis FINDINGS: Right foramen of [place] upper pole right renal and fat-containing hernia. Heart size is within normal range. Right atrial and right ventricular pacemaker leads. No pericardial or pleural effusion. The lung base s are clear of infiltrate or consolidation. 17.5 mm medial segment left hepatic cyst. No suspicious hepatic space-occupying mass lesion is detect ed. Hepatic steatosis. Status post cholecystectomy. Pneumobilia. Status post Whipple procedure. No pancreatic mass lesion or bile duct or pancreatic duct dilatation. Normal splenic size. Mild adrenal hypertrophy. The kidneys are unremarkable. There is atherosclerotic calcification but normal caliber of the abdominal aorta. No intraperitoneal or retroperitoneal or pelvic mass lesion or adenopathy or ascites. The uterus, adnexal areas and urinary bladder are unremarkable. Small fat-containing left inguinal hernia. Diverticulosis of the colon; no CT evidence of diverticulitis. No bowel obstruction, bowel wall thick ening, pneumatosis or intraperitoneal free air. Approximately 12 mm deep 29 mm wide and 30 mm vertical fat-containing umbilical hernia. No suspicious osteolytic or osteoblastic lesions. IMPRESSION: Status post Whipple procedure; no recurrent pancreatic neoplasm is evident Status post cholecystectomy, pneumobilia 17.5 mm medial segment left hepatic cyst Hepatic steatosis. Diverticulosis of the colon Reviewed, dictated and finalized at Location A. Reviewed, dictated and finalized at location B.
[2023-06-21 10:21] LABS: Estimated Glomerular Filt Rate > 60
== END 2023-06-21 09:42 | disposition home or self-care (01) ==
PROVIDERS: PCP Family Medicine; Visit Provider Nurse Practitioner Family
DX: C25.0 Malignant neoplasm of head of pancreas (principal); K57.30 Diverticulosis of large intestine without perforation or abscess without bleeding; Z90.49 Acquired absence of other specified parts of digestive tract; K76.0 Fatty (change of) liver, not elsewhere classified; K76.89 Other specified diseases of liver
CPT/HCPCS: 74177; Q9967

== ENCOUNTER 2023-08-14 08:55 | Outpatient (RCR) | payer OTHER, SELFPAY ==
[2023-08-14 09:28] LABS: Basophils Percent Auto 0.4 % (0.2-1.2); Eosinophils Absolute Auto 0.1 K/mm3 (0-0.3); Eosinophils Percent Auto 1.9 % (0-4.4); Hematocrit 37.8 % (37.0-47.0); Hemoglobin 12.5 g/dL (12.0-15.0); Immature Granulocyte Absolute 0.01 K/mm3 (0.00-0.031); Immature Granulocyte Percent A 0.2 % (0-0.5); Lymphocytes Absolute Auto 1.82 K/mm3 (0.9-3.2); Lymphocytes Percent Auto 34.5 % (18.3-44.2); Mean Corpuscular HGB Conc 33.1 g/dl (32-36); Mean Corpuscular Hemoglobin 32.2 pg (26-34); Mean Corpuscular Volume 97.4 fl (80-100); Mean Platelet Volume 9.4 fl (7.4-10.4); Monocytes Absolute Auto 0.5 K/mm3 (0.1-0.6); Monocytes Percent Auto 9.5 % (2.6-8.5); Neutrophils Absolute Auto 2.8 K/mm3 (1.3-6.7); Neutrophils Percent Auto 53.5 % (45.5-73.1); Platelet Count Result 198 k/mm3 (150-375); Red Blood Count 3.88 M/mm3 (4.2-5.4); Red Cell Distribution Width 13.5 % (11.5-14.5); White Blood Count 5.3 K/mm3 (4.5-10.0)
[2023-08-14 10:39] LABS: Vitamin D 25 Hydroxy 25.5 ng/mL
== END 2023-08-14 08:56 | disposition home or self-care (01) ==
LOC: ANHLAB 08:55
PROVIDERS: PCP Family Medicine; Referring Provider Nurse Practitioner Family; Visit Provider Nurse Practitioner Family
DX: E55.9 Vitamin D deficiency, unspecified (principal); E03.9 Hypothyroidism, unspecified; D64.9 Anemia, unspecified
CPT/HCPCS: 36415; 82306; 85025

== ENCOUNTER 2023-08-18 08:57 | Outpatient (CLI) | payer OTHER, SELFPAY ==
[2023-08-20 08:17] LABS: TSH QUEST 0.95 mIU/L (0.40-4.50)
== END 2023-08-18 08:58 | disposition home or self-care (01) ==
PROVIDERS: PCP Family Medicine; Visit Provider Nurse Practitioner Family
DX: D64.9 Anemia, unspecified (principal); E03.9 Hypothyroidism, unspecified
CPT/HCPCS: 36415; 84481; 86376

== ENCOUNTER 2023-11-24 15:59 | Emergency (ER) | payer OTHER, SELFPAY ==
[2023-11-24 16:12] VITALS: BP 166/78; PULSE 78; RESP 16; TEMP 36.6; O2SAT 99
--- NOTE | 2023-11-24 16:30 | ED.UPPEXIN ---
HPI - Extremity Injury (Upper) General Chief Complaint: Extremity Problem,Nontraumatic Stated Complaint: lt wrist injury Time Seen by Provider: 11/24/23 16:40 Source: patient Mode of arrival: ambulatory Limitations: no limitations History of Present Illness HPI narrative: 78-year-old female presented for complaint of left wrist pain and swelling. Onset yesterday morning. The night prior to onset she pulled a large tree branch across the street without pain or known injury. Pt rates pain 4/10, described as ache. Endorses mild warmth and decreased ROM to the wrist. Related Data Home Medications Medication Instructions Recorded Confirmed raloxifene 60 mg tablet 60 mg PO DAILY 11/09/20 11/24/23 trazodone 50 mg tablet 25 mg PO HS PRN insomnia 11/09/20 11/24/23 [id number]-fmksivmr-mqpzene 1 cap PO TIDWM 02/13/22 11/24/23 24,000-76,000-120,000 unit capsule,delayed rel (Creon) acyclovir 400 mg tablet 400 mg PO DAILY 07/06/22 11/24/23 ascorbic acid (vitamin C) 500 mg 500 mg PO DAILY 07/27/22 11/24/23 capsule diphenhydramine HCl 25 mg capsule 25 mg PO QHS 07/27/22 11/24/23 (Benadryl) lactobacillus combination no.9 4 4,000 mmu cells PO DAILY 07/27/22 11/24/23 billion cell capsule (Adult 50 Plus Probiotic) melatonin 5 mg capsule 5 mg PO .prn 07/27/22 11/24/23 multivitamin (One-A-Day Essential 1 tablet PO DAILY 07/27/22 11/24/23 tablet) resveratrol 250 mg capsule 500 mg PO DAILY 07/27/22 11/24/23 calcium carbonate (Antacid Ultra 500 mg PO DAILY 08/30/23 11/24/23 Strength) cholecalciferol (vitamin D3) 250 20,000 unit PO DAILY 08/30/23 11/24/23 mcg (10,000 unit) capsule coenzyme Q10 100 mg capsule (Co 100 mg PO DAILY 08/30/23 11/24/23 Q-10) cyanocobalamin (vitamin B-12) 1,000 mcg PO DAILY 08/30/23 11/24/23 1,000 mcg capsule ferrous sulfate 325 mg (65 mg 325 mg PO DAILY 08/30/23 11/24/23 iron) tablet folic acid 400 mcg tablet 0.4 mg PO DAILY 08/30/23 11/24/23 niacin 500 mg tablet 500 mg PO DAILY 08/30/23 11/24/23 Allergies Allergy/AdvReac Type Severity Reaction Status Date / Time pegfilgrastim AdvReac Mild WELTS Verified 11/24/23 16:02 vancomycin AdvReac Mild Hives Verified 11/24/23 16:02 Review of Systems Review of Systems: CONSTITUTIONAL: Denies body aches, fever, chills CARDIOVASCULAR: Denies chest pain, palpitations, or edema. RESPIRATORY: Denies cough or dyspnea. GASTROINTESTINAL: Denies abdominal pain, nausea, vomiting, or diarrhea. SKIN: Denies rash, itching, or wounds. MUSCULOSKELETAL: Reports left wrist pain and swelling Denies back pain, or myalgia. NEUROLOGIC: Denies headache, numbness, tingling, or weakness. All systems reviewed & are unremarkable except as noted in HPI and below PMFSH Past Medical History Medical History Arthritis Ashkenazi Alevism ancestry Combined hyperlipidemia Cyst of eye Essential (primary) hypertension History of breast cancer History of pancreatic cancer Multinodular goiter Pacemaker Raynaud's phenomenon without gangrene Vitamin D deficiency Surgical History Surgical History H/O cataract removal with insertion of prosthetic lens 2012 H/O section 1971 & 1975 History of dilatation and curettage 1973, 1976, 1978 Hx of blepharoplasty 2015 Hx of cholecystectomy 1998 Hx of hernia repair 2017 Hx of rotator cuff surgery 2003 Hx of tonsillectomy 1964 S/P thyroid biopsy 2017 [place] teeth removed 1972 Family History Family History Father Family history of lung cancer Mother Family history of malignant neoplasm of skin Sibling Family history of malignant neoplasm of skin Family history of lymphoma Carcinoma of colon Grandparent Family history of malignant neoplasm of breast Acute myocardial infarction Other Family history of malignant neoplasm of male b
== END 2023-11-24 17:00 | disposition home or self-care (01) ==
PROVIDERS: Emergency Provider Nurse Practitioner Family; PCP Family Medicine
DX: M25.532 Pain in left wrist (principal); M19.90 Unspecified osteoarthritis, unspecified site; E78.2 Mixed hyperlipidemia; I10 Essential (primary) hypertension; Z95.0 Presence of cardiac pacemaker; I73.00 Raynaud's syndrome without gangrene; E55.9 Vitamin D deficiency, unspecified; Z85.3 Personal history of malignant neoplasm of breast; Z85.07 Personal history of malignant neoplasm of pancreas
CPT/HCPCS: 99213; G0463

== ENCOUNTER 2023-12-18 10:50 | Outpatient (CLI) | payer OTHER, SELFPAY ==
--- NOTE | ~2023-12-18 | US_ITS ---
EXAMINATION: US thyroid DATE: 12/18/2023 11:09 INDICATION: Nontoxic multinodular goiter. TECHNIQUE: Multiple ultrasound images of the thyroid were obtained. COMPARISON: Ultrasound 07/09/2020, 12/26/2016, 01/19/16 FINDINGS: The right thyroid lobe measures 4.3 x 2.2 x 1.3 cm. The left thyroid lobe measures 5.4 x 2.9 x 2.5 c m. In the right thyroid lobe, there is a 1.5 cm solid, hypoechoic, wider than tall nodule with ill-d efined margins without echogenic foci (TI-RADS TR4). In the left thyroid lobe, there is a 2.7 cm tammy d, isoechoic, wider than tall nodule with ill-defined margin without echogenic foci (TR3). IMPRESSION: 1. Thyroid nodules, stable from 01/19/2016, likely benign. Reviewed, dictated and finalized at location A.
== END 2023-12-18 10:51 | disposition home or self-care (01) ==
LOC: MICIMG 10:50
PROVIDERS: PCP Family Medicine; Visit Provider Family Medicine
DX: E04.2 Nontoxic multinodular goiter (principal)
CPT/HCPCS: 76536

== ENCOUNTER 2024-01-08 09:52 | Outpatient (CLI) | payer OTHER, SELFPAY ==
[2024-01-10 02:28] LABS: TSH QUEST 1.18 mIU/L (0.40-4.50)
== END 2024-01-08 09:53 | disposition home or self-care (01) ==
PROVIDERS: PCP Family Medicine; Visit Provider Nurse Practitioner Family
DX: D64.9 Anemia, unspecified (principal); E03.9 Hypothyroidism, unspecified
CPT/HCPCS: 36415; 84443; 84481; 86376

== ENCOUNTER 2024-02-28 10:02 | Outpatient (CLI) | payer OTHER, SELFPAY ==
[2024-02-28 10:51] LABS: Hematocrit 36.1 % (37.0-47.0); Hemoglobin 12.1 g/dL (12.0-15.0); Mean Corpuscular HGB Conc 33.5 g/dl (32-36); Mean Corpuscular Hemoglobin 32.2 pg (26-34); Platelet Count Result 198 k/mm3 (150-375); Red Blood Count 3.76 M/mm3 (4.2-5.4); Red Cell Distribution Width 13.4 % (11.5-14.5); White Blood Count 6.6 K/mm3 (4.5-10.0)
[2024-02-28 11:07] LABS: Alanine Aminotransferase 24 U/L (6-35); Alkaline Phosphatase 69 U/L (38-126); Anion Gap 9 mmol/L (4-12); Aspartate Amino Transferase 36 U/L (14-36); Bilirubin,Total 0.6 mg/dL (0.2-1.3); Blood Urea Nitrogen 13 mg/dL (7-17); Calcium 9.1 mg/dL (8.4-10.2); Carbon Dioxide 25 mmol/L (22-30); Chloride 106 mmol/L (98-107); Estimated Glomerular Filt Rate > 60; Glucose 109 mg/dL (65-110); Potassium 3.5 mmol/L (3.4-5.0); Sodium 140 mmol/L (137-145)
[2024-02-28 11:27] LABS: Vitamin D 25 Hydroxy 18.1 ng/mL
[2024-02-28 11:55] LABS: Vitamin B12 > 1000.0 pg/mL (239-931)
== END 2024-02-28 10:03 | disposition home or self-care (01) ==
PROVIDERS: PCP Family Medicine; Visit Provider Family Medicine
DX: E53.8 Deficiency of other specified B group vitamins (principal); E55.9 Vitamin D deficiency, unspecified; I73.00 Raynaud's syndrome without gangrene; R10.2 Pelvic and perineal pain; M62.838 Other muscle spasm; I44.1 Atrioventricular block, second degree; I47.29 Other ventricular tachycardia; I51.9 Heart disease, unspecified; I50.9 Heart failure, unspecified; Z79.899 Other long term (current) drug therapy; Z85.07 Personal history of malignant neoplasm of pancreas; Z85.3 Personal history of malignant neoplasm of breast
CPT/HCPCS: 36415; 80053; 82306; 82607; 85027

== ENCOUNTER 2024-03-19 11:42 | Outpatient (CLI) | payer OTHER, SELFPAY ==
--- NOTE | ~2024-03-19 | XR_ITS ---
Left ankle Technique: AP and lateral views were obtained. Clinical History: Pain Findings: No acute fracture or dislocation is seen. Osseous alignment is anatomic. Ankle mortise and other visualized joint spaces are preserved. Soft tissues are otherwise unremarkable. Impression: Unremarkable left ankle. Reviewed, dictated and finalized at location . TE OPERATIONS PRODUCER Impression: Unremarkable left ankle.
--- NOTE | ~2024-03-19 | US_ITS ---
EXAMINATION:US venous doppler LE LT INDICATION:Localized edema TECHNIQUE: Multiple grayscale, color flow and Doppler images of the left lower extremity deep venous systems were obtained and reviewed. COMPARISON:No prior studies for comparison. FINDINGS: The common femoral, superficial femoral and popliteal veins demonstrate normal respiratory variation, augmentation and compressibility. Color flow is also seen within the posterior tibial, pe roneal, greater saphenous and profunda veins. IMPRESSION: 1: No lower extremity deep venous thrombosis. Reviewed, dictated and finalized at location B. E ARCHITECT
== END 2024-03-19 11:43 | disposition home or self-care (01) ==
PROVIDERS: PCP Family Medicine; Visit Provider Internal Medicine Cardiovascular Disease
DX: M25.572 Pain in left ankle and joints of left foot (principal); R60.0 Localized edema
CPT/HCPCS: 73600; 93971

== ENCOUNTER 2024-04-17 13:01 | Emergency (ER) | payer OTHER, SELFPAY ==
[2024-04-17 13:12] VITALS: BP 130/44; PULSE 76; RESP 18; TEMP 36.2; O2SAT 99
--- NOTE | 2024-04-17 14:17 | ED_ITS ---
HPI - General Adult General Chief complaint: Upper Respiratory Infection Stated complaint: cold symptoms Source: patient Mode of arrival: ambulatory Limitations: no limitations History of Present Illness HPI narrative: Patient presents for evaluation of sick symptoms for the last six days. Symptoms include fever, sinus congestion, thick yellow postnasal drainage, diarrhea and cough. No chills, nausea, vomiting or SOB. One of her family members recently had similar symptoms. She does not smoke. She took COVID and flu tests at home yesterday, which were negative. Related Data Home Medications ?Medication ?Instructions ?Recorded ?Confirmed ?Last Taken ?Type raloxifene 60 mg tablet 60 mg PO DAILY 11/09/20 03/19/24 Unknown History trazodone 50 mg tablet 25 mg PO HS PRN insomnia 11/09/20 03/19/24 Unknown History ascorbic acid (vitamin C) 500 mg 500 mg PO DAILY 07/27/22 03/19/24 Unknown History capsule diphenhydramine HCl 25 mg capsule 25 mg PO QHS 07/27/22 03/19/24 Unknown History (Benadryl) lactobacillus combination no.9 4 4,000 mmu cells PO DAILY 07/27/22 03/19/24 Unknown History billion cell capsule (Adult 50 Plus Probiotic) melatonin 5 mg capsule 5 mg PO .prn 07/27/22 03/19/24 Unknown History multivitamin (One-A-Day Essential 1 tablet PO DAILY 07/27/22 03/19/24 Unknown History tablet) calcium carbonate (Antacid Ultra 500 mg PO DAILY 08/30/23 03/19/24 Unknown History Strength) cholecalciferol (vitamin D3) 250 20,000 unit PO DAILY 08/30/23 03/19/24 Unknown History mcg (10,000 unit) capsule cyanocobalamin (vitamin B-12) 1,000 mcg PO DAILY 08/30/23 03/19/24 Unknown History 1,000 mcg capsule ferrous sulfate 325 mg (65 mg 325 mg PO DAILY 08/30/23 03/19/24 Unknown History iron) tablet folic acid 400 mcg tablet 0.4 mg PO DAILY 08/30/23 03/19/24 Unknown History niacin 500 mg tablet 500 mg PO DAILY 08/30/23 03/19/24 Unknown History Allergies Allergy/AdvReac Type Severity Reaction Status Date / Time pegfilgrastim AdvReac Mild WELTS Verified 04/17/24 13:10 vancomycin AdvReac Mild Hives Verified 04/17/24 13:10 Review of Systems Review of Systems: CONSTITUTIONAL: Reports fever. Denies chills, or sweats. EYES: Denies visual changes, redness, or discharge. ENT: Reports sinus congestion, thick yellow postnasal drainage. Denies sore throat CARDIOVASCULAR: Denies chest pain, palpitations, or edema. RESPIRATORY: Reports cough. Denies dyspnea. GASTROINTESTINAL: Reports diarrhea. Denies abdominal pain, nausea, or vomiting GENITOURINARY: Denies dysuria or hematuria. SKIN: Denies rash or itching. MUSCULOSKELETAL: Denies back pain, joint pain, or myalgia. NEUROLOGIC: Denies headache, numbness, dizziness, or weakness. PSYCHIATRIC: Denies anxiety or depression. [facility] Past Medical History Medical History Pacemaker Ashkenazi Moravian ancestry Cyst of eye Arthritis Essential (primary) hypertension History of breast cancer History of pancreatic cancer Combined hyperlipidemia Multinodular goiter Raynaud's phenomenon without gangrene Vitamin D deficiency Surgical History Surgical History S/P thyroid biopsy 2017 Hx of hernia repair 2017 H/O cataract removal with insertion of prosthetic lens 2012 Hx of rotator cuff surgery 2002 Hx of cholecystectomy 1997 History of dilatation and curettage 1973, 1976, 1978 H/O section 1972 & 1975 [place] teeth removed 1972 Hx of tonsillectomy 1964 Hx of blepharoplasty 2014 Family History Family History Father Family history of lung cancer Mother Family history of malignant neoplasm of skin Sibling Family history of malignant neoplasm of skin Family history of lymphoma Carcinoma of colon Grandparent Family history of malignant neoplasm of breast Acute myocardial infarction Other Family history of malignant neoplasm of male breast Hypertension Social History Social History Smoking status: Never smoker Second hand tobacco smoke exposure: Yes Alcohol intake: current Alcohol use details: 2 drinks a year Substance use: never Substance use type: does not use Lack of Transportation: No Lack of Food: Never True Current Housing: I Have Housing Concerned About Future Housing: No Difficulty Paying Gas/Electric Bills: No Difficulty Paying for Meds: No Currently Unemployed: No Education: Decline to Answer Difficulty w/ Childcare or Family Care: No Living arrangements: with family Spiritual care concerns: No Exam Narrative: GENERAL: Well-appearing, well-nourished, and in no acute distress. HEAD: Normocephalic, atraumatic. EYES: PERRLA and EOMI. ENT: Nares clear, no rhinorrhea or epistaxis. Mucous membranes moist. Oropharynx without tonsillar hypertrophy exudate or other lesions. Bilateral TMs pearly quijano nonbulging NECK: Supple. No adenopathy or masses. No carotid bruits or JVD CHEST: Clear to auscultation. No respiratory distress. No wheezes rales or rhonchi HEART: Regular rate and rhythm. No murmur heard. Normal peripheral pulses. ABDOMEN: Soft, nontender, nondistended, normal active bowel sounds. EXTREMITIES: Normal range of motion. No edema. SKIN: Warm, dry, no rash. NEURO: No focal deficits. Alert and oriented x3. PSYCH: Normal mood and affect. Course Course Emergency Course: This is a 78-year-old female who presented for evaluation of sick symptoms. She meets criteria for bacterial sinusitis based upon presence of fever and mucopurulent discharge. Will dc with augmentin. Increase hydration. OTC agents for symptom management. Follow up with primary provider. Go to the ER for worsening symptoms. Pt in agreement with plan of care. Level of Care: Express Care Visit Vital Signs Vital signs: Vital Signs Temperature 36.2 C L 04/17/24 13:12 Pulse Rate 76 04/17/24 13:12 Respiratory Rate 18 04/17/24 13:12 Blood Pressure 130/44 L 04/17/24 13:12 Pulse Oximetry 99 04/17/24 13:12 Oxygen Delivery Room Air 04/17/24 13:12 Temperature 36.2 C L 04/17/24 13:12 Pulse Rate 76 04/17/24 13:12 Respiratory Rate 18 04/17/24 13:12 Blood Pressure 130/44 L 04/17/24 13:12 Pulse Oximetry 99 04/17/24 13:12 Oxygen Delivery Room Air 04/17/24 13:12 Medical Decision Making Vital Signs Vital Signs: Vital Signs Temperature 36.2 C L 04/17/24 13:12 Pulse Rate 76 04/17/24 13:12 Respiratory Rate 18 04/17/24 13:12 Blood Pressure 130/44 L 04/17/24 13:12 Pulse Oximetry 99 04/17/24 13:12 Oxygen Delivery Room Air 04/17/24 13:12 Temperature 36.2 C L 04/17/24 13:12 Pulse Rate 76 04/17/24 13:12 Respiratory Rate 18 04/17/24 13:12 Blood Pressure 130/44 L 04/17/24 13:12 Pulse Oximetry 99 04/17/24 13:12 Oxygen Delivery Room Air 04/17/24 13:12 Discharge Plan Discharge Clinical Impression: Sinusitis Patient Disposition: Home, Self-Care Condition: Stable Instructions: Antibiotic Form, Sinusitis (ED) Patient Language: Croatian Prescriptions: New amoxicillin-pot clavulanate 875-125 mg tablet 1 tablet PO Q12H Qty: 20 0RF No Action raloxifene 60 mg tablet 60 mg PO DAILY trazodone 50 mg tablet 25 mg PO HS PRN (Reason: insomnia) acyclovir 400 mg tablet 400 mg PO DAILY Qty: 90 1RF Adult 50 Plus Probiotic 4 billion cell capsule 4,000 mmu cells PO DAILY Rx Instructions: administer with a meal diphenhydramine HCl [Benadryl] 25 mg capsule 25 mg PO QHS melatonin 5 mg capsule 5 mg PO .prn multivitamin [One-A-Day Essential] Tablet 1 tablet PO DAILY ascorbic acid (vitamin C) 500 mg capsule 500 mg PO DAILY cholecalciferol (vitamin D3) 250 mcg (10,000 unit) capsule 20,000 unit PO DAILY Antacid Ultra Strength 430 mg calcium (1,000 mg) tablet,chewable 500 mg PO DAILY folic acid 400 mcg tablet 0.4 mg PO DAILY ferrous sulfate 325 mg (65 mg iron) tablet 325 mg PO DAILY cyanocobalamin (vitamin B-12) 1,000 mcg capsule 1,000 mcg PO DAILY niacin 500 mg tablet 500 mg PO DAILY carvedilol 3.125 mg tablet 3.125 mg PO Q12H Qty: 180 2RF Rx Instructions: must administer with a meal/food Entresto 49-51 mg tablet See Rx Instructions .ROUTE .COMPLEX Qty: 180 2RF Dose Instruction: TAKE 1 TABLET BY MOUTH EVERY 12 HOURS Rx Instructions: TAKE 1 TABLET BY MOUTH EVERY 12 HOURS Creon 24,000-76,000 -120,000 unit capsule,delayed release(DR/EC) 1 cap PO TIDWM Qty: 240 1RF amiodarone 100 mg tablet See Rx Instructions .ROUTE .COMPLEX Qty: 90 2RF Dose Instruction: TAKE 1 TABLET BY MOUTH DAILY Rx Instructions: TAKE 1 TABLET BY MOUTH DAILY Follow-up/Referrals: Darren Mendez MD [Primary Care Provider] - Time of Disposition: 13:42
== END 2024-04-17 13:44 | disposition home or self-care (01) ==
PROVIDERS: Emergency Provider Nurse Practitioner; PCP Family Medicine
DX: J32.9 Chronic sinusitis, unspecified (principal); I10 Essential (primary) hypertension; E78.2 Mixed hyperlipidemia; I73.00 Raynaud's syndrome without gangrene; E55.9 Vitamin D deficiency, unspecified; E04.2 Nontoxic multinodular goiter; M19.90 Unspecified osteoarthritis, unspecified site; Z85.3 Personal history of malignant neoplasm of breast; Z85.07 Personal history of malignant neoplasm of pancreas; Z95.0 Presence of cardiac pacemaker
CPT/HCPCS: 99213; G0463

== ENCOUNTER 2024-06-04 00:52 | Day surgery (SDC) | payer OTHER, SELFPAY ==
[2024-05-31 14:59] VITALS: BMI 22.6
[2024-06-04 09:41] VITALS: BP 154/82; PULSE 78; RESP 16; TEMP 36; O2SAT 99
[2024-06-04] MEDS: LACTATED RINGERS 1,000 ML 150 ML IV CONT (10:02)
--- NOTE | 2024-06-04 10:07 | WPDANESEPPF ---
Anes - Initial Pre Proc Eval Procedure: Operation Date: 06/04/24 11:00 Proposed Procedures p Esophagogastroduodenoscopy - Valentino Juárez MD Date/Time: 06/04/24 10:07 Surgeon: Valentino Juárez MD Pre Op Diagnosis: Dysphagia Patient Data Age: 78 Gender: F Height: 1.55 m Weight: 54.3 kg Last Vital Signs Temp 36.0 C L 06/04/24 09:41 Pulse 78 06/04/24 09:41 Resp 16 06/04/24 09:41 BP 154/82 H 06/04/24 09:41 Pulse Ox 99 06/04/24 09:41 O2 Del Method Room Air 06/04/24 09:41 Allergies Allergy/AdvReac Type Severity Reaction Status Date / Time pegfilgrastim Allergy Mild WELTS Verified 06/04/24 09:39 vancomycin Allergy Mild Hives Verified 06/04/24 09:39 Home Medications ?Medication ?Instructions ?Recorded ?Confirmed ?Type raloxifene 60 mg tablet 60 mg PO DAILY 11/09/20 06/04/24 History trazodone 50 mg tablet 25 mg PO HS insomnia 11/09/20 06/04/24 History ascorbic acid (vitamin C) 500 mg 500 mg PO DAILY 07/27/22 06/04/24 History capsule diphenhydramine HCl 25 mg capsule 25 mg PO QHS 07/27/22 06/04/24 History (Benadryl) lactobacillus combination no.9 4 4,000 mmu cells PO DAILY 07/27/22 06/04/24 History billion cell capsule (Adult 50 Plus Probiotic) melatonin 5 mg capsule 5 mg PO HS 07/27/22 06/04/24 History multivitamin (One-A-Day Essential 1 tablet PO DAILY 07/27/22 06/04/24 History tablet) calcium carbonate (Antacid Ultra 500 mg PO DAILY 08/30/23 05/31/24 History Strength) cholecalciferol (vitamin D3) 250 30,000 unit PO DAILY 08/30/23 06/04/24 History mcg (10,000 unit) capsule cyanocobalamin (vitamin B-12) 1,000 mcg PO DAILY 08/30/23 06/04/24 History 1,000 mcg capsule ferrous sulfate 325 mg (65 mg 325 mg PO DAILY 08/30/23 06/04/24 History iron) tablet folic acid 400 mcg tablet 0.4 mg PO DAILY 08/30/23 06/04/24 History niacin 500 mg tablet 500 mg PO DAILY 08/30/23 06/04/24 History amiodarone 100 mg tablet See Rx Instructions .Route 02/16/24 06/04/24 Rx .COMPLEX #90 tabs acyclovir 400 mg tablet 400 mg PO DAILY #90 tabs 03/13/24 06/04/24 Rx sacubitril 49 mg-valsartan 51 mg See Rx Instructions .Route 04/22/24 06/04/24 Rx tablet (Entresto) .COMPLEX #180 tabs carvedilol 3.125 mg tablet See Rx Instructions .Route 05/28/24 06/04/24 Rx .COMPLEX #180 tabs aspirin 81 mg tablet,delayed 81 mg PO DAILY 05/31/24 06/04/24 History release (Adult Aspirin Regimen) calcium citrate-vitamin D3 1 tablet PO DAILY 05/31/24 06/04/24 History glucos sul [id number]-hyu-wobog-C-Mn 1 cap PO DAILY 05/31/24 06/04/24 History zaqxvm-tavicidx-xajhlmx 1 cap PO BIDWMEAL 05/31/24 06/04/24 History 24,000-76,000-120,000 unit capsule,delayed rel (Creon) omega-3 fatty acids 1 cap PO DAILY 05/31/24 06/04/24 History turmeric 1 cap PO DAILY 05/31/24 06/04/24 History vit C 250 mg-vit E 90 mg-zinc 40 1 tablet PO DAILY 05/31/24 06/04/24 History mg-copper 1 fn-hobmhi-igefcv capsule (PreserVision AREDS-2) vitamin B complex 1 cap PO DAILY 05/31/24 06/04/24 History zinc 1 cap PO DAILY 05/31/24 06/04/24 History Patient hx anesthesia problems: none Family hx anesthesia problems: none Results Review: All pre-operative results and documents have been reviewed as part of the pre-operative evaluation. [facility] Past Medical History Medical History Pacemaker Ashkenazi Temple ancestry Cyst of eye Arthritis Essential (primary) hypertension History of breast cancer History of pancreatic cancer Combined hyperlipidemia Multinodular goiter Raynaud's phenomenon without gangrene Vitamin D deficiency Surgical History Surgical History S/P thyroid biopsy 2017 Hx of hernia repair 2017 H/O cataract removal with insertion of prosthetic lens 2012 Hx of rotator cuff surgery 2002 Hx of cholecystectomy 1998 History of dilatation and curettage 1973, 1976, 1978 H/O section 1971 & 1975 [place] teeth removed 1972 Hx of tonsillectomy 1964 Hx of blepharoplasty 2015 Family History Family History Father Family history of lung cancer Mother Family history of malignant neoplasm of skin Sibling Family history of malignant neoplasm of skin Family history of lymphoma Carcinoma of colon Grandparent Family history of malignant neoplasm of breast Acute myocardial infarction Other Family history of malignant neoplasm of male breast Hypertension Social History Social History Smoking status: Never smoker Second hand tobacco smoke exposure: Yes Alcohol intake: current Alcohol use details: 2 drinks a year Substance use: never Substance use type: does not use Lack of Transportation: No Lack of Food: Never True Current Housing: I Have Housing Concerned About Future Housing: No Difficulty Paying Gas/Electric Bills: No Difficulty Paying for Meds: No Currently Unemployed: No Education: Decline to Answer Difficulty w/ Childcare or Family Care: No Living arrangements: with family Spiritual care concerns: No Anes - Eval Final PreProcedure Day of Procedure 06/04/24 10:07 Patient weight: normal Heart: regular rate and rhythm Lungs: clear to auscultation Airway: Mallampati scale class 1 Neurological: alert and oriented Last oral intake: >/= 8 hours ASA classification: III Emergent: no Anesthetic plan: proceed Anesthesia type and monitoring: general GIVS and standard monitoring Results Review: All pre-operative results and documents have been reviewed as part of the pre-operative evaluation. Informed Consent: The patient's anesthetic plan and its attendant risks and benefits were discussed with the patient/family/POA. Questions were solicited and answers provided to the satisfaction of the patient/family/POA.
--- NOTE | 2024-06-04 10:27 | PM.HPGS ---
History of Present Illness History of Present Illness Consent: Risks, benefits, and alternatives have been discussed and questions answered. Patient agrees to proceed with procedure. Chief complaint: Dysphagia Narrative: Dalia Mclean is a 78 year old female here for egd, sensation of pills sometimes getting stuck at throat level, she does not have problem with food. Review of Systems Review of Systems: All systems reviewed & are unremarkable except as noted in HPI and below PMFSH Past Medical History Medical History Pacemaker Ashkenazi Sabianism ancestry Cyst of eye Arthritis Essential (primary) hypertension History of breast cancer History of pancreatic cancer Combined hyperlipidemia Multinodular goiter Raynaud's phenomenon without gangrene Vitamin D deficiency Surgical History Surgical History S/P thyroid biopsy 2016 Hx of hernia repair 2016 H/O cataract removal with insertion of prosthetic lens 2012 Hx of rotator cuff surgery 2002 Hx of cholecystectomy 1997 History of dilatation and curettage 1973, 1976, 1978 H/O section 1971 & 1975 [place] teeth removed 1972 Hx of tonsillectomy 1964 Hx of blepharoplasty 2014 Family History Family History Father Family history of lung cancer Mother Family history of malignant neoplasm of skin Sibling Family history of malignant neoplasm of skin Family history of lymphoma Carcinoma of colon Grandparent Family history of malignant neoplasm of breast Acute myocardial infarction Other Family history of malignant neoplasm of male breast Hypertension Social History Social History Smoking status: Never smoker Second hand tobacco smoke exposure: Yes Alcohol intake: current Alcohol use details: 2 drinks a year Substance use: never Substance use type: does not use Lack of Transportation: No Lack of Food: Never True Current Housing: I Have Housing Concerned About Future Housing: No Difficulty Paying Gas/Electric Bills: No Difficulty Paying for Meds: No Currently Unemployed: No Education: Decline to Answer Difficulty w/ Childcare or Family Care: No Living arrangements: with family Spiritual care concerns: No Meds Home Medications and Allergies Home Medications ?Medication ?Instructions ?Recorded ?Confirmed ?Type raloxifene 60 mg tablet 60 mg PO DAILY 11/09/20 06/04/24 History trazodone 50 mg tablet 25 mg PO HS insomnia 11/09/20 06/04/24 History ascorbic acid (vitamin C) 500 mg 500 mg PO DAILY 07/27/22 06/04/24 History capsule diphenhydramine HCl 25 mg capsule 25 mg PO QHS 07/27/22 06/04/24 History (Benadryl) lactobacillus combination no.9 4 4,000 mmu cells PO DAILY 07/27/22 06/04/24 History billion cell capsule (Adult 50 Plus Probiotic) melatonin 5 mg capsule 5 mg PO HS 07/27/22 06/04/24 History multivitamin (One-A-Day Essential 1 tablet PO DAILY 07/27/22 06/04/24 History tablet) calcium carbonate (Antacid Ultra 500 mg PO DAILY 08/30/23 05/31/24 History Strength) cholecalciferol (vitamin D3) 250 30,000 unit PO DAILY 08/30/23 06/04/24 History mcg (10,000 unit) capsule cyanocobalamin (vitamin B-12) 1,000 mcg PO DAILY 08/30/23 06/04/24 History 1,000 mcg capsule ferrous sulfate 325 mg (65 mg 325 mg PO DAILY 08/30/23 06/04/24 History iron) tablet folic acid 400 mcg tablet 0.4 mg PO DAILY 08/30/23 06/04/24 History niacin 500 mg tablet 500 mg PO DAILY 08/30/23 06/04/24 History amiodarone 100 mg tablet See Rx Instructions .Route 02/16/24 06/04/24 Rx .COMPLEX #90 tabs acyclovir 400 mg tablet 400 mg PO DAILY #90 tabs 03/13/24 06/04/24 Rx sacubitril 49 mg-valsartan 51 mg See Rx Instructions .Route 04/22/24 06/04/24 Rx tablet (Entresto) .COMPLEX #180 tabs carvedilol 3.125 mg tablet See Rx Instructions .Route 05/28/24 06/04/24 Rx .COMPLEX #180 tabs aspirin 81 mg tablet,delayed 81 mg PO DAILY 05/31/24 06/04/24 History release (Adult Aspirin Regimen) calcium citrate-vitamin D3 1 tablet PO DAILY 05/31/24 06/04/24 History glucos sul 6FLu-fau-wtaxv-C-Mn 1 cap PO DAILY 05/31/24 06/04/24 History cywsdj-rwebzidp-osepaah 1 cap PO BIDWMEAL 05/31/24 06/04/24 History 24,000-76,000-120,000 unit capsule,delayed rel (Creon) omega-3 fatty acids 1 cap PO DAILY 05/31/24 06/04/24 History turmeric 1 cap PO DAILY 05/31/24 06/04/24 History vit C 250 mg-vit E 90 mg-zinc 40 1 tablet PO DAILY 05/31/24 06/04/24 History mg-copper 1 wj-yajune-hxhcuh capsule (PreserVision AREDS-2) vitamin B complex 1 cap PO DAILY 05/31/24 06/04/24 History zinc 1 cap PO DAILY 05/31/24 06/04/24 History Allergies Allergy/AdvReac Type Severity Reaction Status Date / Time pegfilgrastim Allergy Mild WELTS Verified 06/04/24 09:39 vancomycin Allergy Mild Hives Verified 06/04/24 09:39 Vital Signs Vital Signs - 24 hr 06/04/24 09:41 Temperature 96.8 F L Pulse Rate 78 Respiratory Rate 16 Blood Pressure 154/82 H Pulse Oximetry 99 Oxygen Delivery Room Air Exam Const: General: comfortable and no acute distress HENMT: Face/Nose/Sinus: Normal nares present Eyes: General: appearance normal, both eyes and all related structures Neck: Neck: no JVD Resp: Auscultation: clear to auscultation bilaterally Cardio: Rate: regular rate Rhythm: regular rhythm GI: Inspection: non-distended GI Palp: Yes Soft to palpation Skin: General skin exam: normal color Extrem: General: normal to inspection Psych: Mental Status: mental status grossly normal Assessment and Plan Assessment and plan (1) Dysphagia: Code(s): R13.10 - Dysphagia, unspecified Status: Acute Assessment and Plan: egd to assess if negative then will need to see ENT
[2024-06-04 10:35] VITALS: BP 143/61; PULSE 69; RESP 22; O2SAT 98
[2024-06-04 10:45] VITALS: BP 135/62; PULSE 69; RESP 24; O2SAT 100
[2024-06-04 10:55] VITALS: BP 144/66; PULSE 69; RESP 14; O2SAT 100
== END 2024-06-04 11:09 | disposition home or self-care (01) ==
PROVIDERS: PCP Family Medicine; Referring Provider Family Medicine; Visit Provider Internal Medicine Gastroenterology
PROC: 0DJ08ZZ Inspection of Upper Intestinal Tract, Via Natural or Artificial Opening Endoscopic (ICD-10-PCS; CPT 43235; principal; 2024-06-04 11:00)
DX: R13.10 Dysphagia, unspecified (principal); I10 Essential (primary) hypertension; E55.9 Vitamin D deficiency, unspecified; I73.00 Raynaud's syndrome without gangrene; E78.2 Mixed hyperlipidemia; M19.90 Unspecified osteoarthritis, unspecified site; Z79.810 Long term (current) use of selective estrogen receptor modulators (SERMs); Z79.82 Long term (current) use of aspirin; Z98.890 Other specified postprocedural states; Z90.49 Acquired absence of other specified parts of digestive tract; Z98.84 Bariatric surgery status; Z95.0 Presence of cardiac pacemaker; Z85.3 Personal history of malignant neoplasm of breast; Z85.07 Personal history of malignant neoplasm of pancreas; Z80.1 Family history of malignant neoplasm of trachea, bronchus and lung; Z84.0 Family history of diseases of the skin and subcutaneous tissue; Z80.7 Family history of other malignant neoplasms of lymphoid, hematopoietic and related tissues; Z80.0 Family history of malignant neoplasm of digestive organs; Z80.3 Family history of malignant neoplasm of breast; Z82.49 Family history of ischemic heart disease and other diseases of the circulatory system
CPT/HCPCS: 43235; J2704; J7120

== ENCOUNTER 2024-09-10 08:54 | Outpatient (CLI) | payer OTHER, SELFPAY ==
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
--- OUTSIDE RECORDS SUMMARY | 2024-09-10 09:18 | XMS_ITS | Encounter Summary ---
Author Organization [facility] Address [address] [facility] [place] [address] Care Team Providers Care Automotive Glass Mechanic Name Role Phone Unavailable Primary Care Provider Unavailabl e Encounter Details Date Type Department Care Team (Late st Contact Info) Description 09/27/2021 Lab Requisition [facility] DermPath Lab [address] [facility] [place] [address] Cruz Huffman MD [address] [place] [address] Social History Tobacco Use Types Packs/Day Years Used Date Smoking Tobacco: Never Smokeless Tobacco: Never Comments No Sex and Gender Information Value Date Recorded Sex Assigned at Not on file Legal Sex 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 Gender Identity Not on file Sexual Orientation Not on file documented as of this encounter Plan of Treatment Not on file documented as of this encounter Procedures Procedure Name Priority Date/Time Associated Diagnosis Comments DERMATOPATHOLOGY Routine 09/24/2021 12:0 0 AM CDT documented in this encounter Results * DERMATOPATHOLOGY (09/24/2021 12:00 AM CDT) Case Report Dermatopathology Report Case: [id number] Authorizing Provider: Cruz Huffman MD Collected: 09/24/2021 12:00 AM Ordering Location: [facility] DermPath Lab Received: 09/27/2021 05:00 PM Pathologist: Jewell Smith MD Specimen: Skin, right neck 06/29/202 2 5:03 PM CDT DERMATOPATHOLOGY LABORATORY Final Diagnosis Specimen A. SKIN, right neck: BASAL CELL CARCINOMA, NODULAR TYPE (C44.41) 2 5:03 PM CDT DERMATOPATHOLOGY LABORATORY at 1703 CDT Clinical History BCC vs other. Path # [id number]. 2 5:03 PM CDT DERMATOPATHOLOGY LABORATORY Gross Description Specimen A: Received is one formalin filled container labeled with the patient's name and designated right neck. The specimen consists of a shave biopsy measuring [id number]. Jar 0. 2 5:03 PM CDT DERMATOPATHOLOGY LABORATORY Microscopic Description Specimen A. SKIN, right neck: Within the dermis there are aggregates of basaloid cells with a high nuclear to cytoplasmic ratio and peripheral palisading. 2 5:03 PM CDT DERMATOPATHOLOGY LABORATORY Disclaimer An external and internal positive and negative controls are appropriate for the histochemical, immunohistochemical and immunofluorescence stain(s) in this case (if any), except where stated explicitly. The performance characteristics of the stain(s) cited in this report were developed and its performance characteristic determined by the Dermatopathology Laboratory at [facility], directed by Dr. Leilani Arboleda. These tests need not be, and therefore are not, approved by the [place] Food and Drug Administration. The tests are used for clinical purposes. Billing Codes Specimen Charges Stain Charges 18026 1 2 5:03 PM CDT DERMATOPATHOLOGY LABORATORY Embedded Images 2 5:03 PM CDT DERMATOPATHOLOGY LABORATORY Pathology/Cytolog y TISSUE SPECIMEN FROM SKIN / Unknown 09/24/2021 09/27/2021 5:00 PM CDT us Cruz Huffman MD LAB - PATHOLOGY/CYTOLOGY ORDER CONTRERAS Final Result DERMATOPATHOLOGY LABORATORY [facility] - Department of Dermatology [address] [place] [address], [facility] [phone] documented in this encounter Visit Diagnoses Not on filedocumented in this encounter
--- OUTSIDE RECORDS SUMMARY | 2024-09-10 09:18 | XMS_ITS | Referral Summary ---
Author Organization [facility] Address [address] [place] [address] Care Team Providers Care Hostess Name Role Phone Zaire Hawkins MD Unavailable [phone] Maryse Garcia NP Unavailable [phone] Darren Mendez MD Primary Care Provider [phone] Allergies Active Allergy Reactions Criticality Noted Date Comments Adhesive Tape-Silicones Other (See comments),Unknown Other reaction(s): Other (See comments) Reaction: SKIN REDNESS, Reaction: SKIN REDNESS, Reaction: SKIN REDNESS, Reaction: SKIN REDNESS, Reaction: SKIN REDNESS, Pegfilgrastim Other (See comments),Hives High 10/01/2015 Reaction: welts, Reaction: WELTS, Vancomycin Other (See comments),Rash,Unkno wn,Hives,Urticaria High 09/14/2009 Reaction: HEAD ITCHED, , Reaction: HEAD ITCHED, , Vancomycin Analogues Unknown 05/19/2015 Vancomycin Hcl Unknown 05/19/2015 Medications melatonin 5 mg capsule 5 mg. 0 0 016 Active Additional Information Patient taking differently: 3 mg oral As needed, Reported on 06/14/2021 multivitamin, tx-minerals (VITAMINS AND MINERALS) tablet 0 0 016 Active diphenhydrAMI NE (BENADRYL) 25 mg capsule 25 mg. 0 0 016 Active traZODone (DESYREL) 50 mg tablet Take 0.5 tablets (25 mg total) by mouth nightly Pt takes 12.5mg Active cholecalcifer ol (VITAMIN D-3) 2,000 unit tablet Take by mouth. Act kat omega-3 fatty acids-fish oil 340-1,000 mg capsule Take 1 capsule by mouth Active calcium carb/vit D3/minerals (CALCIUM CARBONATE-VIT D3-MIN) 600 mg (1,500 mg)-200 unit tablet,chewab le 01/24/2017Calcium, po solid 600 mg-200 Tablet, chewablePOdailyCurrent Medication 017 Active acyclovir (ZOVIRAX) 400 mg tablet Prn 014 Active raloxifene (EVISTA) 60 mg tablet Take 1 tablet (60 mg total) by mouth daily 021 Active Creon 24,000-76,000 -120,000 unit capsuleIndica tions:Maligna nt neoplasm of head of pancreas (HCC) TAKE 1 CAPSULE BY MOUTH THREE TIMES DAILY WITH MEALS 90 capsule 11 023 Active amiodarone (PACERONE) 100 mg tablet Take 1 tablet (100 mg total) by mouth daily 024 Active carvediloL (COREG) 3.125 mg tablet 024 Active Entresto 49-51 mg tablet Take 1 tablet by mouth every 12 (twelve) hours A ctive Active Problems Problem Noted Date Diagnosed Date Cardiac pacemaker in situ 02/15/2022 Overview (02/15/2022): [employer] [place] Dual Pacemaker. Dx; DOI 02/14/2022-Tarun. YapmoroniNoiseFree christine. Dr Kenny patient. Liver mass 10/10/2018 Follow-up examination after gastrointestinal tony ac 07/19/2017 Ventral hernia without obstruction or gangrene 0 10/24/2016 Postoperative visit 10/24/2016 Malignant neoplasm of head of pancreas 6 Cancer Staging:Clinical stage from 09/26/2017:Stage IIA(T3, N0, M0) - Signed by Myles Park Jr., MD on 09/26/2017 Overview (07/07/2016): Malignant neoplasm of head of pancreas Immunizations Immunization Administration Dates Next Due Influenza, Trivalent, High D ose, Split, Preservative Free, Intramuscular 01/19/2019,01/18/2019,01/22/2018,01/30,01/11/2016,01/21/2015,01/06/2014 Influenza, Trivalent, IM (MDV) 02/10/2015 Influenza, Unspecified 01/01/2018,01/24/2017, Pfizer SARS-CoV-2 Monovalent Vaccination (12+ Yrs) PURPLE 06/09/2020 Pneumococcal Conjugate PCV 13 11/08/2018 ZOSTER LIVE 01/24/2017,09/28/2016 Social History Tobacco Use Types Packs/Day Years Used Date Smoking Tobacco: Never Smokeless Tobacco: Never Alcohol Use Standard Drinks/Week Comments No 0 (1 standard drink = 0.6 oz pur e alcohol) Personal Safety Answer Date Recorded Getting School Help Needed Not on file 05/28 Comments Unknown Sex and Gender Information Value Date Recorded Sex Assigned at Not on file 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 Gender Identity Not on file Sexual Orientation Not on file Last Filed Vital Signs Vital Sign Reading Time Taken Comments Blood Pressure 146/82 07/18/2023 12:57 PM CDT Pulse 62 07/18/2023 12:57 PM CDT Temperature 36.9 C (98.4 F) 07/18/2023 12:57 PM CDT Respiratory Rate 16 07/18/2023 12:57 PM CDT Oxygen Saturation 99% 07/18/2023 12:57 PM CDT Inhaled Oxygen Concentration - - Weight 58.6 kg (129 lb 3.2 oz) 07/18/2023 12:57 PM CDT Height 154.9 cm (5' 1) 07/19/2022 1:12 PM CDT Body Mass Index 24.41 07/19/2022 1:12 PM CDT Plan of Treatment Not on file Insurance MEDICARE MEDICARE [facility] DUAL MCR [employer] PPO Care Teams Hostess Relationship Specialty Start Date End Date Darren Mendez MD [address] [address] PCP - General Family Practice 07/18/23 Zaire Hawkins MD [address] [address] Consulting Physician Surgical Critical Care 09/20/17 Maryse Garcia NP [address] [place] [address] Nurse Practitioner Medical Oncology 07/14/22
--- OUTSIDE RECORDS SUMMARY | 2024-09-10 09:18 | XMS_ITS | Continuity of Care Document ---
Author Organization [facility] Address [address] [place] [address] Phone Care Team Providers Care Rectifier Operator Name Role Phone Zack Donaldson MD Unavailable [...] Providers Copied on Encounter [facility], [address] [place] [address], [place], [place], [id number], [place] tel:[phone] OPH CONSULT [facility] No Information 9 Anika Zack. [address] [facility], [facility] [address], [place], [place], [id number], [place]. tel:[phone] Referring Provider: Cliff Warner, [address], [place], [address] . tel:[phone] OFFICE/OUTPA TIENT VISIT, EST [facility], [address] [place] [address], [place], [place], [id number], [place] tel:[phone] OPH CONSULT [facility] visual disturbance (chief complaint) Optic atrophy, left eyePresence of intraocular lensVisual field defect of left eye 9 Anika Zack. [address] [place] [address], [facility] [address], [place], [place], [id number], [place]. tel:[phone] Referring Provider: Cliff Warner, [address], [place], [address] . tel:[phone] [facility], [address] [place] [address], [place], [place], [id number], [place] tel:[phone] OPH CONSULT [facility] chalazion (chief complaint) Chalazion right upper eyelid 7 Andre Nicole. [address] [place] [address], [facility] [address], [place], [address], [place]. tel:[phone] Referring Provider: Alonso Romo, [address] [place], [address] . tel:[phone] [facility], [address] [place] [address], [place], [place], [id number], [place] tel:[phone] [facility] No Information 7 Bin Shultz. [address], [place], [place], [id number], [place]. tel:[phone] Referring Provider: Carrington Rosas, [address], [place], [address] . tel:[phone] OFFICE/OUTPA TIENT VISIT, [facility], [address] [place] [address], [id number], tel:[phone] OPH CONSULT [facility] blurred vison (chief complaint) After-catarac t with vision obscured, rightPresence of intraocular lensInsuffici ency of tear film of both eyesDermatoch alasis of left upper eyelidDermato chalasis of right upper eyelid 7 Bin Shultz. [address], [place], [place], [id number], [place]. tel:[phone] Referring Provider: Alonso Romo, [address] [place], [address] . tel:[phone] [facility], [address] [place] [address], [id number], tel:[phone] [facility] No Information 6 Bin Shultz. [address], [place], [place], [id number], [place]. tel:[phone] Referring Provider: Carrington Rosas, [address], [place], [address] . tel:[phone] OFFICE/OUTPA TIENT VISIT, [facility], [address] [place] [address], [id number], [place] tel:[phone] OPH CONSULT [facility] blurry vision (chief complaint) PresbyopiaAft er-cataract with vision obscured, bilateralInsu fficiency of tear film of both eyesDermatoch alasis of left upper eyelidDermato chalasis of right upper eyelid 6 Bin Shultz. [address], [place], [place], [id number], [place]. tel:[phone] Referring Provider: Carrington Rosas, [address], [place], [address] . tel:[phone] [facility], [address] [place] [address], [id number], tel:[phone] [facility] No Information 3 Bin Shultz. [address], [place], [place], [address], [place]. tel:[phone] Referring Provider: Carrington Rosas, [address], [place], [address] . tel:[phone] [facility], [address] [place] [address], [id number], tel:[phone] [facility] No Information 3 Bin Shultz. [address], [address], [id number], [place]. tel:[phone] Referring Provider: Carrington Rosas, [address], [place], [address] . tel:[phone] OFFICE/OUTPA TIENT VISIT, [facility], [address] [place] [address], [id number], tel:[phone] [facility]ULT [facility] Senile nuclear sclerosisTear film insufficiency , unspecifiedDe rmatochalasis PresbyopiaDru sen (degenerative ) of retina 3 Bin Shultz. [address], [place], [place], [id number], [place]. tel:[phone] Referring Provider: Carrington Rosas, [address], [place], [address] . tel:[phone] Family History Family Member Type Diagnosis Age At Onset Aunt Problem (finding) glaucoma Mother Problem (finding) degenerative disorder o f macula Payers Payer name Insurance type Covered alliance party ID Authoriza tion(s) MEDICARE OF [place] MB [id number] [employer] [id number] Social History Type Description Quantity Date Captured [...] in office todayref by [facility] Related to Chalazion right upper eyelid RTO for YAG with SL Related to D ermatochalasis of right upper eyelid Impression/Plan - Di scussed diagnosis in detail with patient. Discussed treatment options with patient. Surgical risks and benefits were discussed, explained and understood by patient.YAG OD [facility] Related to After-cataract with vision obscured, right [...] vision obscured, bilateral Impression/Plan - [place] [facility] [place] Related to Presbyopia Impression/Plan - No treatment is required at this time. Will continue to observe condition and or symptoms. Related to Dermatochalasis of right upper eyelid Impression/Plan - No treatment is required at this time. Will continue to observe condition and or symptoms. Related to Dermatochalasis of left upper eyelid Impression/Plan - Th ere is no evidence [...] Sclerosis Presbyopia OU - per Dr. Romo [facility] Related to Presbyopia Dermatochalasis OU - Discussed [...]
--- OUTSIDE RECORDS SUMMARY | 2024-09-10 09:18 | XMS_ITS | Encounter Summary ---
Author Organization [facility] Address [address] [place] [address] Care Team Providers Care Senior Counsel Commercial Name Role Phone Unavailable Primary Care Provider Unavailabl e Encounter Details Date Type Department Care Team (Late st Contact Info) Description 11/12/2021 Lab Requisition [facility] [address] [place] [id number] Cruz Huffman MD [address] [place] [address] Social History Tobacco Use Types Packs/Day Years Used Date Smoking Tobacco: Never Smokeless Tobacco: Never Comments No Sex and Gender Information Value Date Recorded Sex Assigned at Not on file 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 Gender Identity Not on file Sexual Orientation Not on file documented as of this encounter Plan of Treatment Not on file documented as of this encounter Procedures Procedure Name Priority Date/Time Associated Diagnosis Comments DERMATOPATHOLOGY Routine 11/11/2021 12:0 0 AM CDT documented in this encounter Results * DERMATOPATHOLOGY (11/11/2021 12:00 AM CDT) Case Report Dermatopathology Report Case: [id number] Authorizing Provider: Cruz Huffman MD Collected: 11/11/2021 12:00 AM Ordering Location: [facility] Received: 11/12/2021 04:03 PM Pathologist: Ludivina Arboleda MD Specimen: Skin, right neck 08/16/202 2 4:08 PM CDT DERMATOPATHOLOGY LABORATORY Final Diagnosis Specimen A. SKIN, right neck: BASAL CELL CARCINOMA (C44.41) NOT PRESENT AT MARGIN DERMAL SCAR (L90.5) 2 4:08 PM CDT DERMATOPATHOLOGY LABORATORY at 1608 CDT Clinical History Bx Proven. Nod BCCA. Please Check Margins. Path# [id number] 2 4:08 PM CDT DERMATOPATHOLOGY LABORATORY Gross Description Specimen A: Received is one formalin filled container labeled with the patient's name and designated right neck. The specimen consists of a non-oriented ellipse of skin measuring [id number]. The epidermal surface is unremarkable. The margin is inked green. The 12 o'clock and 6 o'clock tips are submitted in cassette 1. The remainder of the ellipse is serially sectioned and submitted in cassette 2 -3. Jar 0. 2 4:08 PM CDT DERMATOPATHOLOGY LABORATORY Microscopic Description Specimen A. SKIN, right neck: Within the dermis there are aggregates of basaloid cells with a high nuclear to cytoplasmic ratio and peripheral palisading. This lesion is not present at the margin of the specimen. There are fibroblasts and collagen bundles oriented parallel to the skin surface with elongated blood vessels, some of which are oriented perpendicular to the skin surface. 2 4:08 PM CDT DERMATOPATHOLOGY LABORATORY Disclaimer An external and internal positive and negative controls are appropriate for the histochemical, immunohistochemical and immunofluorescence stain(s) in this case (if any), except where stated explicitly. The performance characteristics of the stain(s) cited in this report were developed and its performance characteristic determined by the Dermatopathology Laboratory at [facility], directed by Dr. Leilani Arboleda. These tests need not be, and therefore are not, approved by the [place] Food and Drug Administration. The tests are used for clinical purposes. Billing Codes Specimen Charges Stain Charges 33333 1 2 4:08 PM CDT DERMATOPATHOLOGY LABORATORY Embedded Images 2 4:08 PM CDT DERMATOPATHOLOGY LABORATORY Pathology/Cytolog y TISSUE SPECIMEN FROM SKIN / Unknown 11/11/2021 11/12/2021 4:03 PM CDT us Cruz Huffman MD LAB - PATHOLOGY/CYTOLOGY ORDER CONTRERAS Final Result DERMATOPATHOLOGY LABORATORY [facility] - Department of Dermatology [facility] Medicine [address] [place] [address], [address]rd Floor [address] [phone] documented in this encounter Visit Diagnoses Not on filedocumented in this encounter
--- OUTSIDE RECORDS SUMMARY | 2024-09-10 09:18 | XMS_ITS | Continuity of Care Document ---
Author Organization [facility] Address [address] [place] [address] Phone Care Team Providers Care Histopathologist Name Role Phone Ortiz Bonilla MD Unavailable Unavailable Advance Directives Directive Yes / No Effective Date File Name No Information Encounters Encounter Description Practice Location Reason(s) For Visit Diagnoses Date Provider Providers Copied on Encounter [employer], [address], [place], [place], [address], tel:[phone] [facility] No Information Chad Alcantar. [address], [place], [address], [place]. tel:[phone] Referring Provider: Terrell Panda, [address], [place], [place], [facility]. tel:[phone] [facility], [address], [place], [place], [address], tel:[phone] [facility] Pancreatic mass Chad Alcantar. [address], [address], [place], [address], [place]. tel:[phone] Family History Family Member Type Diagnosis Age At Onset No Information Payers Payer name Insurance type Covered republican ID Authorjuan ra timarcelina(s) MEDICARE MB [id number] [facility] CI [id number] Social History Type Description Quantity Date Captured Comments Sex Female Smoking Status No Information Chief Complaint And Reason For Visit No Information Reason For Referral Reason For Referral No Information History Of Present Illness Encounter Date Complaint History Of Prese nt Illness No Information Functional Status Date Functional Assessmen t No Information Instructions Date Instruction Additional Infor mation No Information Assessments Type Assessment Date No Information Patient Care Teams Name Effective Dates (start - stop) Status Members No Information
--- OUTSIDE RECORDS SUMMARY | 2024-09-10 09:18 | XMS_ITS | Clinical Summary ---
Author Organization [facility] Address [address], [address] [address] Phone Care Team Providers Care Cleat Maker Name Role Phone Unavailable Primary Care Provider Unavailabl e Allergies Active Allergy Reactions Criticality Noted Date Comments Vancomycin Rash,Unknown 05/15/2015 Medications pravastatin (PRAVACHOL) 10 MG TabletIndications: Type III Hyperlipidemia Take 10 mg by mouth daily. Indications: Increased Fats, Triglycerides & Cholesterol in the Blood Active lisinopril-hydroch lorothiazide (PRINZIDE, ZESTORETIC) 10-12.5 MG Tablet Take 1 Tab by mouth daily. Active multiple vitamin with minerals (CENTRUM) Tablet Take 1 Tab by mouth daily. 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 Not on file Not on file Not on fi le Plan of Treatment Health Maintenance Due Date Last Done Comments DEXA Bone Density 1945 Hepatitis C Virus (HCV) Screening 1945 TdaP Immunization 1945 Mammogram 1956 Pneumococcal Immunization (5 0+ years) (1 of 1 - PCV) 1996 Zoster Immunization (1 of 2) 1996 Respiratory Syncytial Virus (RSV) Immunization (Adult) (1 - 1-dose 75+ series) 2021 Influenza Immunization (#1) 2023 SARS-COV-2 Immunization (2023- season) 2023 Hepatitis B Immunization Aged Out No longer eligible based on patient's age to complete this topic Meningococcal Immunization (ACWY) Aged Out No longer eligible based on patient's age to complete this topic Rotavirus Immunization Aged Out No lo nger eligible based on patient's age to complete this topic Insurance MEDICARE
--- OUTSIDE RECORDS SUMMARY | 2024-09-10 09:18 | XMS_ITS | Clinical Summary ---
Author Organization [facility] Address [address] [place] [address] Care Team Providers Care Skin Toggler Name Role Phone Zaire Hawkins MD Unavailable [phone] Maryse Garcia NP Unavailable [phone] Darren Mendez MD Primary Care Provider [phone] Allergies Active Allergy Reactions Criticality Noted Date [...] Cardiac pacemaker in situ 02/15/2022 Overview (02/15/2022): [employer] Ed[place] Dual Pacemaker. Dx; DOI 02/14/2022-Tarun. [employer] christine. Dr Kenny patient. Liver mass 10/10/2018 [...] Conjugate PCV 13 11/08/2018 ZOSTER LIVE 01/24/2017,09/28/2016 Surgical History Surgery Date Site/Laterality Comments COLONOSCOPY Medical History Medical History Date Comments Pancreatic cancer (HCC) Family History Medical History Relation Name Comments Colon cancer Brother Lymphoma Brother Lung cancer Father Breast cancer Father's Sister 1 Breast cancer Father's Sister 2 Breast cancer Maternal Grandmother Breast cancer Mother's Sister Breast cancer Paternal Grandmother Heart disease Paternal Grandmother Breast cancer Sister Uterine cancer Sister Relation Name Status Comments Brother Father Father's Sister 1 Father's Sister 2 Maternal Grandmother Mother's Sister Paternal Grandmother Sister Alive Social History Tobacco Use Types Packs/Day Years [...] on file 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 Gender Identity Not on file Sexual Orientation Not on file Obstetrics History Last Filed Vital Signs Vital Sign Reading [...] 07/19/2022 1:12 PM CDT Plan of Treatment Health Maintenance Due Date Last Done Comments Depression Screening 1945 Fall Risk Assessment 1945 Hepatitis C Screening 1945 Osteoporosis Screening-Bone Density Scan 1945 DTaP/Tdap/Td Vaccine (1 - Tdap) 1957 Hepatitis B Screening 1964 Well Visit 65+ 07/26/2011 Zoster Vaccine (2 of 3) 03/21/2017 01/24/2017, 09/28 Pneumococcal vaccine 65+ (2 of 2 - PPSV23) 11/09/2019 11/08/2018 Covid-19 Vaccine (3 - 2023-2 5 season) 2023 09/22/2020, 06/09/2020 Influenza Vaccine (Season Ended) 2024 01/19/2019, 01/18/2019, 01/22/2018, Additional history exists Breast Cancer Screening-Mammogram Discontinued 04/27/2023, 04/27/2023, 04/21/2022, Additional history exists Insurance MEDICARE MEDICARE [employer] Member Subscriber Plan / Payer (Ef fective 2023-Present) Name:Dalia Mclean Relation to Subscriber:Self Name:Dalia Mclean Payer ID:[id number] (NAIC) Group ID:Not on file Type:MEDICARE RISK OTHER Address: [place] [id number] [employer] CHOICE PPO Member Subscriber Plan / Payer (Ef fective 2023-Present) Name:Dalia Mclean Relation to Subscriber:Self Name:Dalia Mclean Payer ID:[id number] (NAIC) Type:MEDICARE RISK OTHER Address: [place] [id number] Care Teams Skin Toggler Relationship Specialty Start Date End Date Darren Mendez MD [address] [address] PCP - General Family Practice 07/18/23 Zaire Hawkins MD [address] [address] Consulting Physician Surgical Critical Care 09/20/17 Maryse Garcia NP [address] [place] [address] Nurse Practitioner Medical Oncology 07/14/22
--- OUTSIDE RECORDS SUMMARY | 2024-09-10 09:18 | XMS_ITS | Clinical Summary ---
Author Organization [facility] Address [address] [place] [address] Care Team Providers Care Security Sales Consultant Name Role Phone Unavailable Primary Care Provider Unavailabl e Source Comments [facility],non-owned Affiliates and Associated Physician Practices is amultiple site organization consisting of ambulatory clinics and hospital sitesin [place], [place], [place] and [place]. This disclosure is being madepursuant to the Care Everywhere program and may not contain all information available regarding this patient. Last updated 17.[facility] MVP Interactive Allergies Active Allergy Reactions Criticality Noted Date Comments Vancomycin Urticaria Medium 02/09/2018 Medications * Be aware that medications may not be up to date on this document. Alwaysverify current medications with the patient. Pancrelipase, Pau-Ecyn-Nezt, (CREON PO) Active lisinopril-hydro CHLOROthiazide (PRINZIDE; ZESTORETIC) 10-12.5 MG tablet Active Multiple Vitamins-Mineral s (CENTRUM) TABS Act kat pravastatin (PRAVACHOL) 10 MG tablet Take 10 mg by mouth Active Calcium Ascorbate 500 MG Take 1,000 mg by mouth Active Family History Medical History Relation Name Comments Cancer - Colon Brother Cancer - Lung Father Relation Name Status Comments Brother Father Mother Alive Social History Tobacco Use Types Packs/Day Years Used Date Smoking Tobacco: Never Smokeless Tobacco: Never Comments No Sex and Gender Information Value Date Recorded Sex Assigned at Not on file 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 Gender Identity Not on file Sexual Orientation Not on file Last Filed Vital Signs Vital Sign Reading Time Taken Comments Blood Pressure 126/78 02/14/2018 5:25 PM TRAY LINE SUPERVISOR Pulse 86 02/14/2018 5:25 PM TRAY LINE SUPERVISOR Temperature 36.9 C (98.5 F) 02/14/2018 5:25 PM TRAY LINE SUPERVISOR Respiratory Rate 18 02/14/2018 5:25 PM TRAY LINE SUPERVISOR Oxygen Saturation 97% 02/14/2018 5:25 PM TRAY LINE SUPERVISOR Inhaled Oxygen Concentration - - Weight 55.3 kg (122 lb) 02/14/2018 5:25 PM TRAY LINE SUPERVISOR Height 154.9 cm (5' 1) 02/14/2018 5:25 PM TRAY LINE SUPERVISOR Body Mass Index 23.05 02/14/2018 5:25 PM TRAY LINE SUPERVISOR Plan of Treatment Health Maintenance Due Date Last Done Comments BONE DENSITY TESTING 1945 MEDICARE AWV 12 MONTHS 1945 HEPATITIS C SCREENING 07/20/1964 DTAP/TDAP/TD VACCINES (1 - Tdap) 1965 PNEUMOCOCCAL VACCINE 50+ (1 of 1 - PCV) 1996 ZOSTER VACCINE (1 of 2) 1996 Respiratory Syncytial Virus (RSV) Vaccine Pt: or over 60 yrs (1 - 1-dose 75+ series) 2021 COVID-19 VACCINE ( - 2023- season) 2023 DEPRESSION SCREENING 04/03/2024 INFLUENZA VACCINE (Season Ended) 2024 01/24/2017, 09/28/2016, 06/14/2016, Additional history exists HEPATITIS B VACCINE Aged Out No longe r eligible based on patient's age to complete this topic HIB VACCINE Aged Out No longer eligi ble based on patient's age to complete this topic HPV VACCINE Aged Out No longer eligi ble based on patient's age to complete this topic MENINGOCOCCAL (Group B) VACCINE SHARED DECISION-MAKING Aged Out No longer eligible based on patient's age to complete this topic MENINGOCOCCAL GROUPS A/C/Y/W VACCINE Aged Out No longer eligible based on patient's age to complete this topic Insurance MEDICARE MEDICARE MEDICARE [facility]
[2024-09-10 09:34] LABS: Hemoglobin 12.1 g/dL (12.0-15.0); Mean Corpuscular HGB Conc 32.7 g/dl (32-36); Mean Corpuscular Hemoglobin 32.4 pg (26-34); Mean Corpuscular Volume 98.9 fl (80-100); Mean Platelet Volume 10.1 fl (7.4-10.4); Platelet Count Result 191 k/mm3 (150-375); Red Blood Count 3.74 M/mm3 (4.2-5.4); Red Cell Distribution Width 13.9 % (11.5-14.5); White Blood Count 5.6 K/mm3 (4.5-10.0)
[2024-09-10 09:46] LABS: Alanine Aminotransferase 23 U/L (6-35); Albumin Level 4.1 g/dL (3.5-5.1); Alkaline Phosphatase 66 U/L (38-126); Anion Gap 9 mmol/L (4-12); Aspartate Amino Transferase 39 U/L (14-36); Bilirubin,Total 0.5 mg/dL (0.2-1.3); Blood Urea Nitrogen 10 mg/dL (7-17); Calcium 9.3 mg/dL (8.4-10.2); Carbon Dioxide 25 mmol/L (22-30); Chloride 107 mmol/L (98-107); Cholesterol 152 mg/dL (0-200); Estimated Glomerular Filt Rate > 60; Glucose 103 mg/dL (65-110); HDL Direct 62 mg/dL; Potassium 3.6 mmol/L (3.4-5.0); Sodium 141 mmol/L (137-145); Triglycerides 106 mg/dL (<150)
[2024-09-10 09:59] LABS: LDL Cholesterol Direct 58 mg/dL
[2024-09-10 10:14] LABS: Vitamin D 25 Hydroxy 21.1 ng/mL
[2024-09-10 10:18] LABS: Thyroid Stimulating Hormone 0.954 uIU/mL (0.465-4.680)
[2024-09-10 10:39] LABS: Vitamin B12 > 1000.0 pg/mL (239-931)
== END 2024-09-10 08:55 | disposition home or self-care (01) ==
PROVIDERS: PCP Family Medicine; Visit Provider Family Medicine
DX: E04.2 Nontoxic multinodular goiter (principal); I47.20 Ventricular tachycardia, unspecified; I44.1 Atrioventricular block, second degree; Z95.0 Presence of cardiac pacemaker; I73.00 Raynaud's syndrome without gangrene; E78.2 Mixed hyperlipidemia; E55.9 Vitamin D deficiency, unspecified; E53.8 Deficiency of other specified B group vitamins; I11.0 Hypertensive heart disease with heart failure; I50.9 Heart failure, unspecified
CPT/HCPCS: 36415; 80053; 80061; 82306; 82607; 84443; 85027

== ENCOUNTER 2024-10-18 08:47 | Outpatient (CLI) | payer OTHER, SELFPAY ==
--- NOTE | ~2024-10-18 | DEXA_ITS ---
Bone Density Report Name: GRACIELA WESTFALL Age: 79 Sex: Female Ethnicity: White Date of : 1945 Indication: osteopenia; monitoring treatment; parental hip fracture; height loss; prior fracture; cancer; Referring Provider: THELMA PROCTOR Study: Bone densitometry was performed. Exam Date: October 18, 2024 Accession number: [id number] Bone Density: Region BMD T-score Z-score Classification AP Spine(L1-L4) 1.004 -0.4 2.2 Normal Femoral Neck (Left) 0.642 -1.9 0.4 Osteopenia Total Hip (Left) 0.765 -1.5 0.5 Osteopenia Femoral Neck (Right) 0.616 -2.1 0.1 Osteopenia Total Hip (Right) 0.711 -1.9 0.1 Osteopenia Total Hip Mean 0.738 -1.7 0.3 Osteopenia World Health Organization criteria for BMD impression classify patients as: Normal (T-score at or above -1.0), Osteopenia (T-score between -1.0 and -2.5), or Osteoporosis (T-score at or below -2.5). 10-year Fracture Risk: FRAX not reported because: Treated for osteoporosis Previous Exams: -- Region Exam Age BMD T-score BMD Change BMD Change Date g/cm2 vs Baseline vs Previous -- AP Spine (L1-L4) 10/18/2024 79 1.004 -0.4 5.9%* 1.1% 06/07/2022 76 0.993 -0.5 4.7%* 4.7%* 05/19/2020 74 0.948 -0.9 Total Hip(Left) 10/18/2024 79 0.765 -1.5 -3.9%* -2.7% 06/07/2022 76 0.786 -1.3 -1.3% -1.3% 05/19/2020 74 0.796 -1.2 Total Hip(Right) 10/18/2024 79 0.711 -1.9 -5.2%* -1.5% 06/07/2022 76 0.722 -1.8 -3.7%* -3.7%* 05/19/2020 74 0.750 -1.6 -- *Denotes significance at 95% confidence level, LSC for AP Spine = 0.022 g/cm2, LSC for Total Hip = 0.027 g/cm2 Clinical Information Provided by Patient: Has had a low trauma fracture Parent has had a hip fracture Is being treated for osteoporosis Has used the following medications: Evista (i.e. raloxifene), HRT (i.e. estrogen/hormone therapy), Vitamin D, Calcium, MTV Has the following medical conditions: Cancer, hx of left breast ca lumpectomy with radiation and chemo -2002 ; pancreatic ca with chemo- 2015 Patient maximum height was 62.0 Menopause Age: 49 No regular weight bearing exercise Drinks caffeinated beverages Onset of menses at age 12 Number of children 2 Impression: The patient has low bone mass, based on the Right Femoral Neck T-score. The patient has risk factors, including: parental hip fracture, previous fracture. No significant bone loss was observed. Discussion: PATIENT UNDER TREATMENT WITH NO SIGNIFICANT BMD LOSS SINCE LAST EXAM. In an untreated patient, BMD typically declines with age. A lack of decline or gain is usually a sign that treatment is efficacious and fracture risk is reduced. It is important to ask patients whether they are taking their medications and to encourage continued and appropriate compliance with their osteoporosis therapies to reduce fracture risk. It is also important to review their risk factors and encourage appropriate calcium and vitamin D intakes, exercise, fall prevention and other lifestyle measures. Follow-Up: Consider a repeat BMD and Vertebral Fracture Assessment (VFA) exam in 2 years or sooner if medically necessary, to reassess this patient's status. Reported by: AYAD on 10/18/2024 9:23:00 AM. Reviewed, dictated and finalized at location A.
== END 2024-10-18 08:48 | disposition home or self-care (01) ==
LOC: MICIMG 08:48
PROVIDERS: PCP Family Medicine; Visit Provider Family Medicine
DX: M85.89 Other specified disorders of bone density and structure, multiple sites (principal); Z78.0 Asymptomatic menopausal state; R68.2 Dry mouth, unspecified; R13.10 Dysphagia, unspecified
CPT/HCPCS: 77080

== ENCOUNTER 2025-03-15 09:28 | Emergency (ER) | payer OTHER, SELFPAY ==
--- OUTSIDE RECORDS SUMMARY | 2025-03-15 09:30 | XMS_ITS | Clinical Summary ---
Author Organization [facility] Address [address] [place] [address] Care Team Providers Care Front Office Java Developer Name Role Phone Unavailable Primary Care Provider Unavailabl e Source Comments [facility],non-owned Affiliates and Associated Physician Practices is amultiple site organization consisting of ambulatory clinics and hospital sitesin [place], [place], [place] and [place]. This disclosure is being madepursuant to the Care Everywhere program and may not contain all information available regarding this patient. Last updated 17.[facility] clinovo Allergies Active Allergy Reactions Criticality Noted Date Comments Vancomycin Urticaria Medium 02/09/2018 Medications * Be aware that medications may not be up to date on this document. Alwaysverify current medications with the patient. Pancrelipase, Zfv-Smzg-Dfmo, (CREON PO) Active lisinopril-hydro CHLOROthiazide (PRINZIDE; ZESTORETIC) [...] on file Legal Sex Female 10:41 AM EMULSION COATER Gender Identity Not on file Sexual Orientation Not on file Last Filed Vital Signs Vital Sign Reading Time Taken Comments Blood Pressure 126/78 02/14/2018 5:25 PM EMULSION COATER Pulse 86 02/14/2018 5:25 PM EMULSION COATER Temperature 36.9 C (98.5 F) 02/14/2018 5:25 PM EMULSION COATER Respiratory Rate 18 02/14/2018 5:25 PM EMULSION COATER Oxygen Saturation 97% 02/14/2018 5:25 PM EMULSION COATER Inhaled Oxygen Concentration - - Weight 55.3 kg (122 lb) 02/14/2018 5:25 PM EMULSION COATER Height 154.9 cm (5' 1) 02/14/2018 5:25 PM EMULSION COATER Body Mass Index 23.05 02/14/2018 5:25 PM EMULSION COATER Plan of Treatment Health Maintenance Due Date Last Done Comments BONE DENSITY TESTING 1945 HEPATITIS C SCREENING 07/20/1964 DTAP/TDAP/TD VACCINES (1 - Tdap) 1965 PNEUMOCOCCAL VACCINE 50+ (1 of 1 - PCV) 1996 ZOSTER VACCINE (1 of 2) 1996 Respiratory Syncytial Virus (RSV) Vaccine Pt: or over 60 yrs (1 - 1-dose 75+ series) 2021 DEPRESSION SCREENING 04/03/2024 COVID-19 VACCINE (1 - 2024- season) 2024 INFLUENZA VACCINE (#1) 2024 7, 09/28/2016, 06/14/2016, Additional history exists HEPATITIS B [...] complete this topic Insurance MEDICARE MEDICARE MEDICARE [facility]
--- OUTSIDE RECORDS SUMMARY | 2025-03-15 09:30 | XMS_ITS | Clinical Summary ---
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 Not on file Not on file Not on fi le Plan of Treatment Health Maintenance Due Date Last Done Comments Hepatitis C Virus (HCV) Screening 1945 TdaP Immunization 1945 Mammogram 1956 Pneumococcal Immunization (5 0+ years) (1 of 1 - PCV) 1996 Zoster Immunization (1 of 2) 1996 Medicare Initial AWV [id number] 05/11/2016 Respiratory Syncytial Virus (RSV) Immunization (Adult) (1 - 1-dose 75+ series) 2021 Influenza Immunization (#1) 2024 SARS-COV-2 Immunization (2024- season) 2024 Hepatitis B Immunization Aged Out No longer eligible based on patient's age to complete this topic Human Papillomavirus (HPV) Immunization Aged Out No longer eligible b ased on patient's age to complete this topic Meningococcal Immunization (ACWY) Aged Out No longer eligible based on patient's age to complete this topic Rotavirus Immunization Aged Out No lo nger eligible based on patient's age to complete this topic Insurance MEDICARE
--- OUTSIDE RECORDS SUMMARY | 2025-03-15 09:30 | XMS_ITS | Clinical Summary ---
Author Organization [facility] Address [address] [place] [address] Care Team Providers Care Sprinkler Repair Technician Name Role Phone Zaire Hawkins MD Unavailable [phone] Maryse Garcia NP Unavailable [phone] Darren Mendez MD Primary Care Provider [phone] Allergies Active Allergy Reactions Criticality Noted Date [...] Cardiac pacemaker in situ 02/15/2022 Overview (02/15/2022): [employer] Edcheo Dual Pacemaker. Dx; DOI 02/14/2022-Tarun. [employer]astor[employer] christine. Dr Kenny patient. Liver mass 10/10/2018 [...] on file Legal Sex Female 4:11 PM STORAGE RECEIPT POSTER Gender Identity Not on file Sexual Orientation [...] Screening 1945 Osteoporosis Screening-Bone Density Scan 1945 Hepatitis B Screening 1964 Well Visit 65+ 07/26/2011 Pneumococcal vaccine 65+ (2 of 2 - PCV20 or PCV21) 11/09/2019 11/08/2018 Covid-19 Vaccine (3 - 2024-2 6 season) 2024 09/22/2020, 06/09/2020 Influenza Vaccine (#1) 2024 , 01/19/2019, 01/18/2019, Additional history exists DTaP/Tdap/Td Vaccine (2 - Td or Tdap) 01/09/2033 01/09/2023 Zoster Vaccine Completed 03/11/2020, 12/03, 01/24/2017, Additional history exists Breast Cancer Screening-Mammogram Discontinued 05/02/2024, 04/27/2023, 04/27/2023, Additional history exists Insurance MEDICARE MEDICARE [employer] ADVANTAGE CHOICE PPO Care Teams Sprinkler Repair Technician Relationship Specialty Start Date End Date Darren Mendez MD [address] [place] [id number] PCP - General Family Practice 07/18/23 Zaire Hawkins MD [address] [facility] [address] [place] [address] Consulting Physician Surgical Critical Care 09/20/17 Maryse Garcia NP [address] [place] [address] Nurse Practitioner Medical Oncology 07/14/22
--- OUTSIDE RECORDS SUMMARY | 2025-03-15 09:30 | XMS_ITS | Encounter Summary ---
Author Organization [facility] Address [address] [place] [address] Care Team Providers Care Educational Director Name Role Phone Unavailable Primary Care Provider Unavailabl e Encounter Details Date Type Department Care Team (Late st Contact Info) Description 09/27/2021 Lab Requisition [facility] DermPath Lab [address] [facility] [place] [address] Cruz Huffman MD [address] [place] [address] Social History Tobacco Use Types Packs/Day Years Used Date Smoking Tobacco: Never Smokeless Tobacco: Never Comments No Sex and Gender Information Value Date Recorded Sex Assigned at Not on file Legal Sex Female 10:41 AM PROJECT ARCHIVIST Gender Identity Not on file Sexual Orientation Not on file documented as of this encounter Plan of Treatment Not on file documented as of this encounter Procedures Procedure Name Priority Date/Time Associated Diagnosis Comments DERMATOPATHOLOGY Routine 09/24/2021 12:0 0 AM CDT documented in this encounter Results * DERMATOPATHOLOGY (09/24/2021 12:00 AM CDT) Case Report Dermatopathology Report Case: [id number] Authorizing Provider: Cruz Huffman MD Collected: 09/24/2021 12:00 AM Ordering Location: [facility] DermPath Lab Received: 09/27/2021 05:00 PM Pathologist: Jewell Smith MD Specimen: Skin, right neck 2 5:03 PM CDT DERMATOPATHOLOGY LABORATORY Final Diagnosis Specimen A. SKIN, right neck: BASAL CELL CARCINOMA, NODULAR TYPE (C44.41) 2 5:03 PM CDT DERMATOPATHOLOGY LABORATORY at 1703 CDT Clinical History BCC vs other. Path # [id number]. 2 5:03 PM CDT DERMATOPATHOLOGY LABORATORY Gross Description Specimen A: Received is one formalin filled container labeled with the patient's name and designated right neck. The specimen consists of a shave biopsy measuring [id number]. Jar 0. 2 5:03 PM CDT DERMATOPATHOLOGY [...] characteristic determined by the Dermatopathology Laboratory at [facility], directed by Dr. Leilani Arboleda. These tests need not be, and therefore are not, approved by the [place] Food and Drug Administration. The tests are used for clinical purposes. Billing Codes Specimen Charges Stain Charges 86049 1 2 5:03 PM CDT DERMATOPATHOLOGY LABORATORY Embedded Images 2 5:03 PM CDT DERMATOPATHOLOGY LABORATORY Pathology/Cytolog y TISSUE SPECIMEN FROM SKIN / Unknown 09/24/2021 09/27/2021 5:00 PM CDT us Cruz Huffman MD LAB - PATHOLOGY/CYTOLOGY ORDER CONTRERAS Final Result DERMATOPATHOLOGY LABORATORY [facility] - Department of Dermatology [address], [address] [phone] documented in this encounter Visit Diagnoses Not on filedocumented in this encounter
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
--- OUTSIDE RECORDS SUMMARY | 2025-03-15 09:30 | XMS_ITS | Encounter Summary ---
Author Organization [facility] Address [address] [facility] [place] [address] Care Team Providers Care Chartered Accountant Name Role Phone Unavailable Primary Care Provider Unavailabl e Encounter Details Date Type Department Care Team (Late st Contact Info) Description 11/12/2021 Lab Requisition [facility] DermPath Lab [address] [facility] [place] [address] Cruz Huffman MD [address] [place] [address] Social History Tobacco Use Types Packs/Day Years Used Date Smoking Tobacco: Never Smokeless Tobacco: Never Comments No Sex and Gender Information Value Date Recorded Sex Assigned at Not on file Legal Sex Female 10:41 AM OYSTER PICKER Gender Identity Not on file Sexual Orientation Not on file documented as of this encounter Plan of Treatment Not on file documented as of this encounter Procedures Procedure Name Priority Date/Time Associated Diagnosis Comments DERMATOPATHOLOGY Routine 11/11/2021 12:0 0 AM CDT documented in this encounter Results * DERMATOPATHOLOGY (11/11/2021 12:00 AM CDT) Case Report Dermatopathology Report Case: [id number] Authorizing Provider: Cruz Huffman MD Collected: 11/11/2021 12:00 AM Ordering Location: [facility] DermPath Lab Received: 11/12/2021 04:03 PM Pathologist: Ludivina Arboleda MD Specimen: Skin, right neck 2 4:08 PM T DERMATOPATHOLOGY LABORATORY Final Diagnosis Specimen A. SKIN, right neck: BASAL CELL CARCINOMA (C44.41) NOT PRESENT AT MARGIN DERMAL SCAR (L90.5) 2 4:08 PM T DERMATOPATHOLOGY LABORATORY at 1608 CDT Clinical History Bx Proven. Nod BCCA. Please Check Margins. Path# [id number] 2 4:08 PM CDT DERMATOPATHOLOGY LABORATORY Gross Description Specimen A: Received is one formalin filled container labeled with the patient's name and designated right neck. The specimen consists of a non-oriented ellipse of skin measuring [id number]. The epidermal surface is unremarkable. The margin is inked green. The 12 o'clock and 6 o'clock tips are submitted in cassette 1. The remainder of the ellipse is serially sectioned and submitted in cassette 2 -3. Jar 0. 2 4:08 PM T DERMATOPATHOLOGY LABORATORY Microscopic Description Specimen A. SKIN, [...] characteristic determined by the Dermatopathology Laboratory at [facility], directed by Dr. Leilani Arboleda. These tests need not be, and therefore are not, approved by the [place] Food and Drug Administration. The tests are used for clinical purposes. Billing Codes Specimen Charges Stain Charges 21453 1 2 4:08 PM CDT DERMATOPATHOLOGY LABORATORY Embedded Images 2 4:08 PM CDT DERMATOPATHOLOGY LABORATORY Pathology/Cytolog y TISSUE SPECIMEN FROM SKIN / Unknown 11/11/2021 11/12/2021 4:03 PM CDT us Cruz Huffman MD LAB - PATHOLOGY/CYTOLOGY ORDER CONTRERAS Final Result DERMATOPATHOLOGY LABORATORY [facility] - Department of Dermatology [facility] [address] [place] [address], [address] [phone] documented in this encounter Visit Diagnoses Not on filedocumented in this encounter
--- OUTSIDE RECORDS SUMMARY | 2025-03-15 09:31 | XMS_ITS | Clinical Summary ---
Author Organization [facility] Address [address] [place] [address] Care Team Providers Care Clarification Operator Name Role Phone Unavailable Primary Care Provider Unavailabl e Immunizations Immunization Administration Dates Next Due PFIZER COVID-19 (ORIGINAL FO RMULATION, PURPLE CAP) mRNA, LNP-S, PF, 30 MCG/0.3 ML DOSE 09/22/2020,06/09/2020 Social History Tobacco Use Types Packs/Day Years Used Date Smoking Tobacco: Never Assessed Comments Unknown Sex and Gender Information Value Date Recorded Sex Assigned at Not on file Legal Sex Female 12:27 PM BARREL SCRAPER Gender Identity Not on file Sexual Orientation Not on file Plan of Treatment Health Maintenance Due Date Last Done Comments Hepatitis C 1963 DTaP, Tdap and Td Vaccines (1 - Tdap) 1964 Annual Medicare Wellness Visit 07/26/2011 Dexa Scan (General) 07/26/2011 Pneumococcal Vaccine: 50+ Years (2 of 2 - PCV20 or PCV21) 11/09/2019 11/08/2018 RSV Immunization or 60+ Years (1 - 1-dose 75+ series) 2021 COVID-19 Vaccine (3 - season) 2024 09/22/2020, 06/09/2020 Influenza Adult (#1) 2025 12/30/2019, 01/19/2019, 01/18/2019, Additional history exists Zoster Vaccines Completed 03/11/2020, 12/03, 01/24/2017, Additional history exists Hepatitis A Vaccines Aged Out No long er eligible based on patient's age to complete this topic Meningococcal B Vaccine Aged Out No l onger eligible based on patient's age to complete this topic Meningococcal Vaccine Aged Out No anjali sariah eligible based on patient's age to complete this topic RSV Immunizations Under 20 Months Aged Out No longer eligible based on patient's age to complete this topic Insurance
[2025-03-15 09:35] VITALS: BP 172/65; PULSE 74; RESP 18; TEMP 35.9; O2SAT 100
--- NOTE | 2025-03-15 09:58 | ED.EAR ---
HPI - Ear Problem General Chief complaint: Ear Stated complaint: RT Ear Pain Time Seen by Provider: 03/15/25 09:40 Source: patient and RN notes reviewed Mode of arrival: ambulatory Limitations: no limitations History of Present Illness HPI Narrative: 79-year-old female presents Express Care complaining of right ear pain for 1 week. Reports some congestion and nasal drainage along with filling pressure in her head she reports. Patient denies any other upper respiratory symptoms, cough, fevers, by eczema chills, nausea vomiting, diarrhea, chest pain, difficulty breathing, any other symptoms. Patient has a history of pancreatic cancer and cardiac history. Related Data Home Medications ?Medication ?Instructions ?Recorded ?Confirmed ?Last Taken ?Type raloxifene 60 mg tablet 60 mg PO DAILY 11/09/20 10/07/24 06/03/24 History trazodone 50 mg tablet 25 mg PO HS insomnia 11/09/20 10/07/24 06/03/24 History ascorbic acid (vitamin C) 500 mg 500 mg PO DAILY 07/27/22 10/07/24 06/03/24 History capsule diphenhydramine HCl 25 mg capsule 25 mg PO QHS 07/27/22 10/07/24 06/03/24 History (Benadryl) lactobacillus combination no.9 4 4,000 mmu cells PO DAILY 07/27/22 10/07/24 06/03/24 History billion cell capsule (Adult 50 Plus Probiotic) melatonin 5 mg capsule 5 mg PO HS 07/27/22 10/07/24 06/03/24 History multivitamin (One-A-Day Essential 1 tablet PO DAILY 07/27/22 10/07/24 06/03/24 History tablet) cholecalciferol (vitamin D3) 250 30,000 unit PO DAILY 08/30/23 10/07/24 06/03/24 History mcg (10,000 unit) capsule cyanocobalamin (vitamin B-12) 1,000 mcg PO DAILY 08/30/23 10/07/24 06/03/24 History 1,000 mcg capsule ferrous sulfate 325 mg (65 mg 325 mg PO DAILY 08/30/23 10/07/24 06/03/24 History iron) tablet folic acid 400 mcg tablet 0.4 mg PO DAILY 08/30/23 10/07/24 06/03/24 History niacin 500 mg tablet 500 mg PO DAILY 08/30/23 10/07/24 06/03/24 History aspirin 81 mg tablet,delayed 81 mg PO DAILY 05/31/24 10/07/24 06/03/24 History release (Adult Aspirin Regimen) calcium citrate-vitamin D3 1 tablet PO DAILY 05/31/24 10/07/24 06/03/24 History glucos sul 8MBi-asb-npzpy-C-Mn 1 cap PO DAILY 05/31/24 10/07/24 06/03/24 History omega-3 fatty acids 1 cap PO DAILY 05/31/24 10/07/24 06/03/24 History vit C 250 mg-vit E 90 mg-zinc 40 1 tablet PO DAILY 05/31/24 10/07/24 06/03/24 History mg-copper 1 vl-sfahqt-ighthy capsule (PreserVision AREDS-2) vitamin B complex 1 cap PO DAILY 05/31/24 10/07/24 06/03/24 History zinc 1 cap PO DAILY 05/31/24 10/07/24 06/03/24 History Allergies Allergy/AdvReac Type Severity Reaction Status Date / Time pegfilgrastim Allergy Mild WELTS Verified 03/15/25 09:30 vancomycin Allergy Mild Hives Verified 03/15/25 09:30 Review of Systems Review of Systems: CONSTITUTIONAL: Denies fever, chills, or sweats. EYES: Denies visual changes, redness, or discharge. ENT: Denies rhinorrhea, sore throat. Positive for congestion and otalgia. CARDIOVASCULAR: Denies chest pain, palpitations, or edema. RESPIRATORY: Denies cough or dyspnea. GASTROINTESTINAL: Denies abdominal pain, nausea, vomiting, or diarrhea. GENITOURINARY: Denies dysuria or hematuria. SKIN: Denies rash or itching. MUSCULOSKELETAL: Denies back pain, joint pain, or myalgia. NEUROLOGIC: Denies headache, numbness, or weakness. PSYCHIATRIC: Denies anxiety or depression. All other systems reviewed are negative, except as documented in HPI. FOR[facility]LY [facility], [facility] Past Medical History Medical History Pacemaker Ashkenazi Scientologist ancestry Cyst of eye Arthritis Essential (primary) hypertension History of breast cancer History of pancreatic cancer Combined hyperlipidemia Multinodular goiter Raynaud's phenomenon without gangrene Vitamin D deficiency Surgical History Surgical History S/P thyroid biopsy 2017 Hx of hernia repair 2017 H/O cataract removal with insertion of prosthetic lens 2012 Hx of rotator cuff surgery 2002 Hx of cholecystectomy 1998 History of dilatation and curettage 1973, 1976, 1978 H/O section 1971 & 1975 [place] teeth removed 1972 Hx of tonsillectomy 1964 Hx of blepharoplasty 2014 Family History Family History Father Family history of lung cancer Mother Family history of malignant neoplasm of skin Sibling Family history of malignant neoplasm of skin Family history of lymphoma Carcinoma of colon Grandparent Family history of malignant neoplasm of breast Acute myocardial infarction Other Family history of malignant neoplasm of male breast Hypertension Social History Social History Social History: Caffeine- soda Smoking status: Never smoker Second hand tobacco smoke exposure: Yes Alcohol intake: current Alcohol use details: 2 drinks a year Substance use: never Substance use type: does not use Lack of Transportation: No Lack of Food: Never True Current Housing: I Have Housing Concerned About Future Housing: No Difficulty Paying Gas/Electric Bills: No Difficulty Paying for Meds: No Currently Unemployed: No Education: Decline to Answer Difficulty w/ Childcare or Family Care: No Living arrangements: with family Spiritual care concerns: No Comments At the time of my signature, I reviewed and agree with the nursing past medical, surgical, social, and family history. There is no relevant family history pertinent to the patient complaint. Exam Narrative: GENERAL: This is a well-nourished, well-developed adult, in no apparent distress. They are non ill-appearing, nontoxic appearing. HEAD: normocephalic, atraumatic. EYES: Sclera clear/white. Conjunctiva normal. Vision is grossly intact. Extraocular movements intact EARS: External ears normal, auditory canals clear and without drainage, TMs normal without perforation. Hearing grossly intact. NOSE: External nose normal with no obvious nasal discharge, nasal turbinates erythemic without swelling, no rhinorrhea. THROAT: Mucous membranes moist, posterior pharynx exudate of drainage present., cobblestone appearing. Uvula midline. NECK: Neck supple, non-tender without lymphadenopathy, masses or thyromegaly. CARDIOVASCULAR: Regular rate and rhythm without murmurs, gallops, or rubs. RESPIRATORY: Clear to auscultation. Breath sounds equal bilaterally. No wheezes, rales, or rhonchi. SKIN: warm, Dry, intact with no suspicious lesions or rash, good texture and turgor. NEURO: awake, alert, and oriented to person, place and time. There were no obvious focal neurologic abnormalities. EXTREMITIES: No joint tenderness, effusion, or edema noted. BACK: Nontender without deformity. No CVA tenderness. Course Course Level of Care: Express Care Visit Vital Signs Vital signs: Vital Signs Temperature 96.6 F L 03/15/25 09:35 Pulse Rate 74 03/15/25 09:35 Respiratory Rate 18 03/15/25 09:35 Blood Pressure 172/65 H 03/15/25 09:35 Pulse Oximetry 100 03/15/25 09:35 Oxygen Delivery Room Air 03/15/25 09:35 Temperature 96.6 F L 03/15/25 09:35 Pulse Rate 74 03/15/25 09:35 Respiratory Rate 18 03/15/25 09:35 Blood Pressure 172/65 H 03/15/25 09:35 Pulse Oximetry 100 03/15/25 09:35 Oxygen Delivery Room Air 03/15/25 09:35 [facility] MDM Narrative Medical decision making narrative: Patient likely has a bacterial sinusitis. Will treat with Augmentin. Discussed physical exam findings. Advised supportive measures and signs/symptoms to go to the ER. Pt is appropriate for outpt treatment and f/u. Differential Diagnosis Differential Diagnosis: Differential diagnostic considerations for upper respiratory infection include upper respiratory infection, croup, otitis media, sinusitis, viral infection, bronchitis, influenza, pharyngitis, strep, uvulitis. Critical Care Time Critical Care Time Critical Care Time: No Discharge Plan Discharge Clinical Impression: Sinusitis Qualifiers: Sinusitis location: unspecified location Chronicity: acute Recurrence: non-recurrent Qualified Code(s): J01.90 - Acute sinusitis, unspecified Patient Disposition: Home Condition: Stable Instructions: Antibiotic Form, Sinusitis (ED) Additional Instructions: Take the antibiotics as directed and complete the course even if you start to feel better. You may use a Neti pot saline rinse 3 times a day with lukewarm distilled water Continue to take Tylenol as needed for pain or fevers. Follow instructions on the bottle Use a humidifier or vaporizer at night. Drink plenty of water. 8-10 glasses per day. Use flonase 2 times per day for 5 days then as needed for congestion Follow up with Primary provider in 3-5 days Please go to the ER if he develops any difficulty breathing, chest pain, vomiting, worsening symptoms, or any other concerns Patient Language: Tamazight Prescriptions: New amoxicillin-pot clavulanate 875-125 mg tablet 1 tablet PO Q12H 7 Days Qty: 14 0RF No Action raloxifene 60 mg tablet 60 mg PO DAILY trazodone 50 mg tablet 25 mg PO HS Adult 50 Plus Probiotic 4 billion cell capsule 4,000 mmu cells PO DAILY Rx Instructions: administer with a meal diphenhydramine HCl [Benadryl] 25 mg capsule 25 mg PO QHS melatonin 5 mg capsule 5 mg PO HS multivitamin [One-A-Day Essential] Tablet 1 tablet PO DAILY ascorbic acid (vitamin C) 500 mg capsule 500 mg PO DAILY cholecalciferol (vitamin D3) 250 mcg (10,000 unit) capsule 30,000 unit PO DAILY folic acid 400 mcg tablet 0.4 mg PO DAILY ferrous sulfate 325 mg (65 mg iron) tablet 325 mg PO DAILY cyanocobalamin (vitamin B-12) 1,000 mcg capsule 1,000 mcg PO DAILY niacin 500 mg tablet 500 mg PO DAILY calcium citrate-vitamin D3 [Calcium Citrate + D] 1 tablet PO DAILY vitamin B complex Capsule 1 cap PO DAILY zinc 1 cap PO DAILY glucos sul 7CLg-suw-lokdu-C-Mn [Glucosamine Chondroitin] 1 cap PO DAILY omega-3 fatty acids [Fish Oil] 1 cap PO DAILY PreserVision AREDS-2 250-90-40-1 mg capsule 1 tablet PO DAILY aspirin [Adult Aspirin Regimen] 81 mg tablet,delayed release (DR/EC) 81 mg PO DAILY Creon 24,000-76,000 -120,000 unit capsule,delayed release(DR/EC) 1 cap PO BIDWMEAL Qty: 200 1RF acyclovir 400 mg tablet 400 mg PO DAILY Qty: 90 1RF amiodarone 100 mg tablet See Rx Instructions .ROUTE .COMPLEX Qty: 90 2RF Dose Instruction: TAKE 1 TABLET BY MOUTH DAILY Rx Instructions: TAKE 1 TABLET BY MOUTH DAILY carvedilol 3.125 mg tablet See Rx Instructions .ROUTE .COMPLEX Qty: 180 2RF Dose Instruction: TAKE 1 TABLET BY MOUTH EVERY 12 HOURS - MUST ADMINISTER WITH A MEAL/FOOD Rx Instructions: TAKE 1 TABLET BY MOUTH EVERY 12 HOURS - MUST ADMINISTER WITH A MEAL/FOOD Entresto 49-51 mg tablet See Rx Instructions .ROUTE .COMPLEX Qty: 180 2RF Dose Instruction: TAKE 1 TABLET BY MOUTH EVERY 12 HOURS Rx Instructions: TAKE 1 TABLET BY MOUTH EVERY 12 HOURS Follow-up/Referrals: Darren Mendez MD [Primary Care Provider, Family Practice] Time of Disposition: 09:49
== END 2025-03-15 09:54 | disposition home or self-care (01) ==
PROVIDERS: PCP Family Medicine
DX: J01.90 Acute sinusitis, unspecified (principal); I10 Essential (primary) hypertension; E78.2 Mixed hyperlipidemia; I73.00 Raynaud's syndrome without gangrene; E55.9 Vitamin D deficiency, unspecified; M19.90 Unspecified osteoarthritis, unspecified site; Z85.07 Personal history of malignant neoplasm of pancreas; Z85.3 Personal history of malignant neoplasm of breast; Z95.0 Presence of cardiac pacemaker; Z79.82 Long term (current) use of aspirin
CPT/HCPCS: 99213; G0463

== ENCOUNTER 2025-03-29 08:51 | Outpatient (CLI) | payer OTHER, SELFPAY ==
--- OUTSIDE RECORDS SUMMARY | 2018-08-29 09:03 | XMS_ITS | Continuity of Care Document ---
Author Organization [facility] [place] Address [address] [place] [address] Phone Care Team Providers Care Prior Authorization Technician Name Role Phone Zack Donaldson MD Unavailable Unavailable Allergies, Adverse Reactions, Alerts Substance Reaction Status Criticality vancomycin Active No Information Medications Medication Instructions Dosage Effective Dates (start - stop) Status Comments trazodone BUCCAL ADH. PATCH - Active melatonin 5 mg capsule - Active Creon 12,000-38,000-60,00 0 unit capsule,delayed release take 2 capsule by oral route 3 times every day with meals and 1 capsule with each snack 2.00 capsule - Active Benadryl 25 mg capsule take 2 capsule (50MG) by oral route every 4 - 6 hours as needed 50 MG - Active Procedures Procedure Date OFFICE/OUTPATIENT VISIT, EST VISUAL FIELD EXAMINATION(S) REMOVE EYELID LESION AFTER CATARACT LASER SURGERY OFFICE/OUTPATIENT VISIT, EST AFTER CATARACT LASER SURGERY OFFICE/OUTPATIENT VISIT, EST CATARACT SURG W/IOL, 1 STAGE DILATED FUNDUS EVAL DONE PRE-SURG EYE MEASURES DOC'D CATARACT SURG W/IOL, 1 STAGE DILATED FUNDUS EVAL DONE PRE-SURG EYE MEASURES DOC'D OFFICE/OUTPATIENT VISIT, NEW OPHTHALMIC BIOMETRY OPHTHALMIC BIOMETRY VISUAL FUNCT STATUS ASSESS Advance Directives Directive Yes / No Effective Date File Name No Information Encounters Encounter Description Practice Location Reason(s) For Visit Diagnoses Date Provider Providers Copied on Encounter [facility], [address] [place] [address], [place], [place], [id number], [place] tel:[phone] OPH CONSULT [facility] No Information 9 Anika Zack. [address] [facility], [facility] [address], [place], [place], [id number], [place]. tel:[phone] Referring Provider: Cliff Warner, [address], [place], [address] . tel:[phone] OFFICE/OUTPA TIENT VISIT, EST [facility], [address] [place] [address], [place], [place], [id number], [place] tel:[phone] OPH CONSULT [facility] visual disturbance (chief complaint) Optic atrophy, left eyePresence of intraocular lensVisual field defect of left eye 9 Anika Zack. [address] [place] [address], [facility] [address], [place], [place], [id number], [place]. tel:[phone] Referring Provider: Cliff Warner, [address], [place], [address] . tel:[phone] [facility], [address] [place] [address], [place], [place], [id number], [place] tel:[phone] [facility]ULT [facility] chalazion (chief complaint) Chalazion right upper eyelid 7 Andre Nicole. [address] [place] [address], [facility] [address], [place], [address], [place]. tel:[phone] Referring Provider: Alonso Romo, [address] [place], [address] . tel:[phone] [facility], [address] [place] [address], [place], [place], [id number], [place] tel:[phone] [facility] No Information 7 Bin Shultz. [address] , [address], [place], [place], [address], [place]. tel:[phone] Referring Provider: Carrington Rosas, [address], [place], [address] . tel:[phone] OFFICE/OUTPA TIENT VISIT, [facility], [address] [place] [address], [id number], tel:[phone] OPH CONSULT [facility] blurred vison (chief complaint) After-catarac t with vision obscured, rightPresence of intraocular lensInsuffici ency of tear film of both eyesDermatoch alasis of left upper eyelidDermato chalasis of right upper eyelid 7 Bin Shultz. [address], [place], [place], [id number], [place]. tel:[phone] Referring Provider: Alonso Romo, [address] [place], [address] . tel:[phone] [facility], [address] [place] [address], [id number], tel:[phone] [facility] No Information 6 Bin Shultz. [address], [place], [place], [address], [place]. tel:[phone] Referring Provider: Carrington Rosas, [address], [place], [address] . tel:[phone] OFFICE/OUTPA TIENT VISIT, [facility], [address] [place] [address], [id number], [place] tel:[phone] [facility]ULT [facility] blurry vision (chief complaint) PresbyopiaAft er-cataract with vision obscured, bilateralInsu fficiency of tear film of both eyesDermatoch alasis of left upper eyelidDermato chalasis of right upper eyelid 6 Bin Shultz. [address], [place], [place], [address], [place]. tel:[phone] Referring Provider: Carrington Rosas, [address], [place], [address] . tel:[phone] [facility], [address] [place] [address], [id number], tel:[phone] [facility] No Information 3 Bin Shultz. [address], [place], [place], [address], [place]. tel:[phone] Referring Provider: Carrington Rosas, [address], [place], [address] . tel:[phone] [facility], [address] [place] [address], [id number], tel:[phone] [facility] No Information 3 Bin Shultz. [address], [id number], [place]. tel:[phone] Referring Provider: Carrington Rosas, [address], [place], [address] . tel:[phone] OFFICE/OUTPA TIENT VISIT, [facility], [address] [place] [address], [id number], tel:[phone] [facility] Senile nuclear sclerosisTear film insufficiency , unspecifiedDe rmatochalasis PresbyopiaDru sen (degenerative ) of retina 3 Bin Shultz. [address], [place], [place], [address], [place]. tel:[phone] Referring Provider: Carrington Rosas, [address], [place], [address] . tel:[phone] Family History Family Member Type Diagnosis Age At Onset Aunt Problem (finding) glaucoma Mother Problem (finding) degenerative disorder o f macula Payers Payer name Insurance type Covered republican ID Authoriza tion(s) MEDIC[place] OF [place] MB [id number] [employer] [id number] Social History Type Description Quantity Date Captured Comments Alcohol Use Details Unknown Caffeine Use Details Unknown Tobacco Use Status No Information Smoking Status No Information Sex Female Chief Complaint And Reason For Visit No Information Reason For Referral Reason For Referral No Information History Of Present Illness Encounter Date Complaint History Of Prese nt Illness visual disturbance The 73 year o ld female presents for evaluation of visual disturbance in the left eye. It started about 4 month(s) ago. It affects VA not affected. The symptom is occasional. Pt reports seeing a collins like image in her OS. She states she noticed it while putting on her make up. right eye dominate. She went to see Dr Romo he said he'd see her back in a year. She was concerned with not having any answers. She wanted to have it checked out further. chalazion Patient presents for Chalazion eval RUL per Dr. Romo. Patient complains that she has a lump under the skin on her RUL, it comes and goes, started about 6 months ago. She's been using some lid wipes that make the lump shrink. While it's small it doesn't really bother her but she can feel it under the skin. When it's big it kind of hurts. blurred vison The 71 year old female presents for evaluation of blurred vison in the right eye. It started about 3 month(s) ago. It affects both near and far vision. The symptom is constant. The condition is significant. Pt C/O blurred vision at distance and near in OD and has noticed it getting worse over the past 3-4 months. Pt does not feel comfortable driving at night with current vision. blurry vision Patient presents for foggy VA OU (OS>OD) gradually worsening since late last summer. The symptom is constant and the condition is mod-sev. Patient referred by Dr. Romo w/ [facility] for YAG PC OU. Functional Status Date Functional Assessmen t No Information Instructions Date Instruction Additional Infor mation Impression/Plan Related to Prese nce of intraocular lens Impression/Plan Related to Visua l field defect of left eye Impression/Plan Related to Optic atrophy, left eye Follow up - RTO prn Impression/Plan - Di scussed diagnosis in detail with patient. Discussed treatment options with patient. Remove in office todayref by Dr. Romo at [facility] Related to Chalazion right upper eyelid RTO for YAG with SL Related to D ermatochalasis of right upper eyelid Impression/Plan - Di scussed diagnosis in detail with patient. Discussed treatment options with patient. Surgical risks and benefits were discussed, explained and understood by patient.YAG OD [facility] Related to After-cataract with vision obscured, right Impression/Plan - S/ p YAG - no other treatment at this time Related to Presence of intraocular lens Impression/Plan - Th ere is no evidence of permanent changes to the cornea. Explained condition does not have a cure and will need artificial tears for maintenance. 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 Romo Related to Presbyopia Impression/Plan - No treatment is required at this time. Will continue to observe condition and or symptoms. Related to Dermatochalasis of right upper eyelid Impression/Plan - No treatment is required at this time. Will continue to observe condition and or symptoms. Related to Dermatochalasis of left upper eyelid Impression/Plan - T here is no evidence of permanent changes to the cornea. Explained condition does not have a cure and will need artificial tears for maintenance. Related to Insufficiency of tear film of both eyes Impression/Plan - Di scussed diagnosis in detail with patient. Discussed treatment options with patient. Patient elects to have surgery. Will proceed with surgical treatment today. Surgical risks and benefits were discussed, explained and understood by patient. Educational materials provided:Yag Capsulotomy.YAG OS only Related to After-cataract with vision obscured, bilateral Follow up - RTO for YAG with SL Related to After-cataract with vision obscured, bilateral Cataract, Nuclear Sc lerosis OU - Cataracts account for the patient's complaints. Discussed all risks, benefits, procedures and recovery. Patient understands changing glasses will not improve vision. Patient desires to have surgery, recommend phacoemulsification with intraocular lens. Educational materials provided:Cataract. Standard, distance OU. OS, then OD. Related to Cataract, Nuclear Sclerosis Presbyopia OU - per Dr. Romo [facility] Related to Presbyopia Dermatochalasis OU - Discussed diagnosis in detail with patient. No treatment is required at this time. Will continue to observe condition and or symptoms. Related to Dermatochalasis Dry Eye Syndrome OU - Discussed diagnosis in detail with patient. No treatment is required at this time. Will continue to observe condition and or symptoms. Patient instructed to use artificial tears as needed. Related to Dry Eye Syndrome Drusen OU - Discusse d diagnosis in detail with patient. No treatment is required at this time. Will continue to observe condition and or symptoms. Related to [place] Assessments Type Assessment Date No Information Patient Care Teams Name Effective Dates (start - stop) Status Members No Information
--- OUTSIDE RECORDS SUMMARY | 2025-03-29 08:56 | XMS_ITS | Clinical Summary ---
Author Organization [facility] Address [address] [place] [address] Care Team Providers Care Motorcycle Service Technician Name Role Phone Unavailable Primary Care Provider Unavailabl e Source Comments [facility],non-owned Affiliates and Associated Physician Practices is amultiple site organization consisting of ambulatory clinics and hospital sitesin [place], [place], [place] and [place]. This disclosure is being madepursuant to the Care Everywhere program and may not contain all information available regarding this patient. Last updated 17.[facility] Allergies Active Allergy Reactions Criticality Noted Date Comments Vancomycin Urticaria Medium 02/09/2018 Medications * Be aware that medications may not be up to date on this document. Alwaysverify current medications with the patient. 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 Gender Identity Not on file Sexual Orientation Not on file Last Filed Vital Signs Vital Sign Reading Time Taken Comments Blood Pressure 126/78 02/14/2018 5:25 PM AUTOMOTIVE SALES PROFESSIONAL Pulse 86 02/14/2018 5:25 PM AUTOMOTIVE SALES PROFESSIONAL Temperature 36.9 C (98.5 F) 02/14/2018 5:25 PM AUTOMOTIVE SALES PROFESSIONAL Respiratory Rate 18 02/14/2018 5:25 PM AUTOMOTIVE SALES PROFESSIONAL Oxygen Saturation 97% 02/14/2018 5:25 PM AUTOMOTIVE SALES PROFESSIONAL Inhaled Oxygen Concentration - - Weight 55.3 kg (122 lb) 02/14/2018 5:25 PM AUTOMOTIVE SALES PROFESSIONAL Height 154.9 cm (5' 1) 02/14/2018 5:25 PM AUTOMOTIVE SALES PROFESSIONAL Body Mass Index 23.05 02/14/2018 5:25 PM AUTOMOTIVE SALES PROFESSIONAL Plan of Treatment Health Maintenance Due Date [...] complete this topic Insurance MEDICARE MEDICARE MEDICARE [facility]
--- OUTSIDE RECORDS SUMMARY | 2025-03-29 08:56 | XMS_ITS | Clinical Summary ---
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
--- OUTSIDE RECORDS SUMMARY | 2025-03-29 08:56 | XMS_ITS | Encounter Summary ---
Author Organization [facility] Address [address] [facility] [place] [address] Care Team Providers Care Food Storeroom Clerk Name Role Phone Unavailable Primary Care Provider Unavailabl e Encounter Details Date Type Department Care Team (Late st Contact Info) Description 11/12/2021 Lab Requisition [facility] DermPath Lab [address] [facility] [place] [address] Cruz Huffman MD [address] [facility] [place] [address] Social History Tobacco Use Types Packs/Day Years Used Date Smoking Tobacco: Never Smokeless Tobacco: Never Comments No Sex and Gender Information Value Date Recorded Sex Assigned at Not on file 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 Gender Identity Not on file Sexual Orientation Not on file documented as of this encounter Plan of Treatment Not on file documented as of this encounter Procedures Procedure Name Priority Date/Time Associated Diagnosis Comments DERMATOPATHOLOGY Routine 11/11/2021 12:0 0 AM CDT documented in this encounter Results * DERMATOPATHOLOGY (11/11/2021 12:00 AM CDT) Case Report Dermatopathology Report Case: [id number] Authorizing Provider: Cruz Huffman MD Collected: 11/11/2021 12:00 AM Ordering Location: [facility] DermPath Lab Received: 11/12/2021 04:03 PM Pathologist: Ludivina Arboleda MD Specimen: Skin, right neck 2 4:08 PM T DERMATOPATHOLOGY LABORATORY Final Diagnosis Specimen A. SKIN, right neck: BASAL CELL CARCINOMA (C44.41) NOT PRESENT AT MARGIN DERMAL SCAR (L90.5) 2 4:08 PM T DERMATOPATHOLOGY LABORATORY at 1608 CDT Clinical History Bx Proven. Nod BCCA. Please Check Margins. Path# [id number] 2 4:08 PM CDT DERMATOPATHOLOGY LABORATORY Gross Description Specimen A: Received is one formalin filled container labeled with the patient's name and designated right neck. The specimen consists of a non-oriented ellipse of skin measuring [id number]. The epidermal surface is unremarkable. The margin [...] determined by the Dermatopathology Laboratory at [facility], directed by Dr. Leilani Arboleda. These tests need not be, and therefore are not, approved by the [place] Food and Drug Administration. The tests are used for clinical purposes. Billing Codes Specimen Charges Stain Charges 89543 1 2 4:08 PM CDT DERMATOPATHOLOGY LABORATORY Embedded Images 2 4:08 PM CDT DERMATOPATHOLOGY LABORATORY Pathology/Cytolog y TISSUE SPECIMEN FROM SKIN / Unknown 11/11/2021 11/12/2021 4:03 PM CDT us Cruz uHffman MD LAB - PATHOLOGY/CYTOLOGY ORDER CONTRERAS Final Result DERMATOPATHOLOGY LABORATORY [facility] - Department of Dermatology [facility] [address] [place] [address], [address] [phone] documented in this encounter Visit Diagnoses Not on filedocumented in this encounter
--- OUTSIDE RECORDS SUMMARY | 2025-03-29 08:56 | XMS_ITS | Encounter Summary ---
Author Organization [facility] Address [address] [facility] [place] [address] Care Team Providers Care Lipcoat Sprayer Name Role Phone Unavailable Primary Care Provider Unavailabl e Encounter Details Date Type Department Care Team (Late st Contact Info) Description 09/27/2021 Lab Requisition [facility] DermPath Lab [address] [facility] [place] [address] Cruz Huffman MD [address] [place] [address] Social History Tobacco Use Types Packs/Day Years Used Date Smoking Tobacco: Never Smokeless Tobacco: Never Comments No Sex and Gender Information Value Date Recorded Sex Assigned at Not on file 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 Gender Identity Not on file Sexual Orientation Not on file documented as of this encounter Plan of Treatment Not on file documented as of this encounter Procedures Procedure Name Priority Date/Time Associated Diagnosis Comments DERMATOPATHOLOGY Routine 09/24/2021 12:0 0 AM CDT documented in this encounter Results * DERMATOPATHOLOGY (09/24/2021 12:00 AM CDT) Case Report Dermatopathology Report Case: [id number] Authorizing Provider: Cruz Huffman MD Collected: 09/24/2021 12:00 AM Ordering Location: [facility] DermPath Lab Received: 09/27/2021 05:00 PM Pathologist: Jewell Smith MD Specimen: Skin, right neck 2 5:03 PM CDT DERMATOPATHOLOGY LABORATORY Final Diagnosis Specimen A. SKIN, right neck: BASAL CELL CARCINOMA, NODULAR TYPE (C44.41) 2 5:03 PM CDT DERMATOPATHOLOGY LABORATORY at 1703 CDT Clinical History BCC vs other. Path # [id number]. 2 5:03 PM CDT DERMATOPATHOLOGY LABORATORY Gross Description Specimen A: Received is one formalin filled container labeled with the patient's name and designated right neck. The specimen consists of a shave biopsy measuring [id number]. Jar 0. 2 5:03 PM CDT DERMATOPATHOLOGY [...] characteristic determined by the Dermatopathology Laboratory at [facility], directed by Dr. Leilani Arboleda. These tests need not be, and therefore are not, approved by the [place] Food and Drug Administration. The tests are used for clinical purposes. Billing Codes Specimen Charges Stain Charges 35222 1 2 5:03 PM CDT DERMATOPATHOLOGY LABORATORY Embedded Images 2 5:03 PM CDT DERMATOPATHOLOGY LABORATORY Pathology/Cytolog y TISSUE SPECIMEN FROM SKIN / Unknown 09/24/2021 09/27/2021 5:00 PM CDT us Cruz Huffman MD LAB - PATHOLOGY/CYTOLOGY ORDER CONTRERAS Final Result DERMATOPATHOLOGY LABORATORY [facility] - Department of Dermatology [address], [address] [phone] documented in this encounter Visit Diagnoses Not on filedocumented in this encounter
--- OUTSIDE RECORDS SUMMARY | 2025-03-29 08:57 | XMS_ITS | Clinical Summary ---
Author Organization [facility] Address [address] [place] [id number] Care Team Providers Care Shorer Name Role Phone Unavailable Primary Care Provider Unavailabl e Immunizations Immunization Administration Dates Next Due PFIZER COVID-19 (ORIGINAL FO RMULATION, PURPLE CAP) mRNA, LNP-S, PF, 30 MCG/0.3 ML DOSE 09/22/2020,06/09/2020 Social History Tobacco Use Types Packs/Day Years Used Date Smoking Tobacco: Never Assessed Comments Unknown Sex and Gender Information Value Date Recorded Sex Assigned at Not on file Legal Sex Female 12:27 PM CLIENT SERVICE ADMINISTRATOR Gender Identity Not on file Sexual Orientation [...]
--- OUTSIDE RECORDS SUMMARY | 2025-03-29 08:57 | XMS_ITS | Clinical Summary ---
Author Organization [facility] Address [address] [place] [address] Phone Care Team Providers Care Manager Test Name Role Phone Danny Paredes DO Primary Care Provider [phone] Allergies Active Allergy Reactions Criticality Noted Date [...] Arianne Musa MD [address] [place] [address] Other: Dr Lily Junior Problem Noted Date [...] on file Legal Sex Female 5:53 AM LABORER SHIPYARD Gender Identity Not on file Sexual Orientation Not on file Occupation Industry Job Start Date Job End Date Not on file Not on file Not on file Not on file Last Filed Vital Signs Vital Sign Reading Time Taken Comments Blood Pressure 142/84 05/02/2024 10:48 AM LABORER SHIPYARD Pulse 76 05/02/2024 10:48 AM LABORER SHIPYARD Temperature 36.5 C (97.7 F) 10/01/2015 1:24 PM CDT Respiratory Rate - - Oxygen Saturation - - Inhaled Oxygen Concentration - - Weight 55.7 kg (122 lb 12.8 oz) 025 10:48 AM LABORER SHIPYARD Height 154.9 cm (5' 1) 05/02/2024 10:4 8 AM LABORER SHIPYARD Body Mass Index 23.2 05/02/2024 10:48 AM LABORER SHIPYARD Plan of Treatment Upcoming Encounters Date Type Department Care Team (Late st Contact Info) Description 05/08/2025 11:00 AM LABORER SHIPYARD Appointment [facility] [address] [place] [address] [place] [address] [place] [address] 05/08/2025 11:45 AM LABORER SHIPYARD Office Visit [facility] Breast Surgery [address] [place] [address] [place] [address] [place] [address] Abigail Whelan, BOOK TRIMMER [address] [place] [address] Health Maintenance Due Date Last [...] 06/09/2020 Insurance [employer] PPO MCR Care Teams Manager Test Relationship Specialty Start Date End Date Danny Paredes DO [address] [facility] [address] [facility] [address] [place] [address] PCP - General Internal Medicine 04/15/22
--- OUTSIDE RECORDS SUMMARY | 2025-03-29 08:57 | XMS_ITS | Clinical Summary ---
Author Organization [facility] Address [address] [place] [address] Care Team Providers Care Electronic Integrated Systems Mechanic Name Role Phone Zaire Hawkins MD Unavailable [phone] Maryse Garcia NP Unavailable [phone] Darren Mendez MD Primary Care Provider [phone] Allergies Active Allergy Reactions Criticality Noted Date [...] Cardiac pacemaker in situ 02/15/2022 Overview (02/15/2022): [employer]over Ed[employer]o Dual Pacemaker. Dx; DOI 02/14/2022-Tarun. CrocodocroniGuesty christine. Dr Kenny patient. 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 Gender Identity Not on file Sexual Orientation [...] exists Insurance MEDICARE MEDICARE [employer] [facility] ADVANTAGE CHOICE PPO Care Teams Electronic Integrated Systems Mechanic Relationship Specialty Start Date End Date Darren Mendez MD [address] [place] [id number] PCP - General Family Practice 07/18/23 Zaire Hawkins MD [address] [facility] [address] [place] [address] Consulting Physician Surgical Critical Care 09/20/17 Maryse Garcia NP [address] [place] [address] Nurse Practitioner Medical Oncology 07/14/22
[2025-03-29 10:01] LABS: Hematocrit 38.2 % (37.0-47.0); Hemoglobin 12.6 g/dL (12.0-15.0); Immature Granulocyte Percent A 0.4 % (0-0.5); Lymphocytes Absolute Auto 1.87 K/mm3 (0.9-3.2); Mean Corpuscular HGB Conc 33.0 g/dl (32-36); Mean Corpuscular Hemoglobin 32.2 pg (26-34); Mean Corpuscular Volume 97.7 fl (80-100); Nucleated Red Blood Cells Absolute Auto 0.000 K/mm3 (0.0-0.012); Nucleated Red Blood Cells Perc 0.0 % (0.0-0.2); Platelet Count Result 211 k/mm3 (150-375); Red Blood Count 3.91 M/mm3 (4.2-5.4); White Blood Count 5.6 K/mm3 (4.5-10.0)
[2025-03-29 10:09] LABS: Alanine Aminotransferase 27 U/L (6-35); Albumin Level 4.1 g/dL (3.5-5.1); Alkaline Phosphatase 83 U/L (38-126); Anion Gap 6 mmol/L (4-12); Aspartate Amino Transferase 33 U/L (14-36); Bilirubin,Total 0.5 mg/dL (0.2-1.3); Blood Urea Nitrogen 13 mg/dL (7-17); Calcium 9.6 mg/dL (8.4-10.2); Carbon Dioxide 25 mmol/L (22-30); Chloride 110 mmol/L (98-107); Estimated Glomerular Filt Rate > 60; Glucose 110 mg/dL (65-110); Magnesium 1.6 mg/dL (1.6-2.3); Potassium 3.7 mmol/L (3.4-5.0); Sodium 141 mmol/L (137-145); Total Protein 7.2 g/dL (6.3-8.2)
== END 2025-03-29 08:52 | disposition home or self-care (01) ==
LOC: ANHLAB 08:54
PROVIDERS: PCP Family Medicine; Visit Provider Family Medicine
DX: R13.10 Dysphagia, unspecified (principal); I50.9 Heart failure, unspecified; E55.9 Vitamin D deficiency, unspecified; E53.8 Deficiency of other specified B group vitamins; E04.2 Nontoxic multinodular goiter; R68.2 Dry mouth, unspecified; I11.0 Hypertensive heart disease with heart failure
CPT/HCPCS: 36415; 80053; 82306; 83735; 85025; 86235